=== PATIENT | female | born 1990 | race African-American/Black ===

== ENCOUNTER 2018-02-15 22:43 | Emergency (ER) | payer MEDICARE ==
[~2018-02-15] VITALS: Ht 162.6 cm; Wt 74.8 kg
--- OUTSIDE RECORDS SUMMARY | 2018-02-15 22:46 | XMS REPORT ---
Author Author Admin, [place] Organization [facility] Address Unknown Phone Unavailable Allergies, Adverse Reactions, Alerts Allergy Name Reaction Description Start Date Severity Status Provider No Known Allergies Socorro Das Conditions or Problems Problem Name Problem Code Onset Date Status Entry Date Provider Comment Standard Description Annotate Eye and vision exam, routine, normal findings V72.0 Active Mehdi Jn OD Examination of eyes and vision Medication List Medication Instructions Start Date Stop Date Generic Name NDC Status Provider Patient Instruction No Drug Therapy Prescribed - none known did ask Socorro Das Procedures Code Procedure Name Date Entry Date Standard Description [id number] New Patient Intermediate Opth - 31697 14:03:54 CDT
--- OUTSIDE RECORDS SUMMARY | 2018-02-15 22:46 | XMS REPORT | Clinical Summary ---
Author Author ANDRÉS [facility] Organization [facility] Address Unknown Phone Unavailable Care Team Providers Care Shirt Presser Name Role Phone Pcp, No PCP Unavailable Allergies Comments Active Allergy Reactions Severity Noted Date Sulfamethoxazole-Trimetho 02/01/2018 prim Lip swelling Ibuprofen 08/26/2017 Hives, sob Metronidazole 02/02/2018 Medications End Date Status Medication Sig Dispensed Refills Start Date Active methylPREDNISolone Take 4 mg by 0 (MEDROL) 4 MG tablet mouth 3 7 (three) times daily. Active levonorgestrel-ethinyl Take 1 tablet 0 estradiol (NORDETTE) by mouth 0.15-0.03 mg per tablet daily. Active cholecalciferol, vitamin Take 50,000 0 D3, 50,000 unit Tab Units by mouth once a week. Active albuterol HFA (VENTOLIN Inhale 1 puff 0 HFA) 90 mcg/actuation by mouth via inhaler inhaler every 6 (six) hours as needed for Wheezing. Active fluticasone (FLONASE) 50 1 spray by 0 mcg/actuation nasal spray Nasal route daily. Active benzonatate (TESSALON) Take 100 mg 0 100 MG capsule by mouth 3 (three) times daily as needed for Cough. Active B-complex with vitamin C Take 1 tablet 0 tablet by mouth daily. Active cetirizine (ZYRTEC) 10 MG Take 10 mg by 0 tablet mouth daily. Active inhalational spacing For use with 1 each 0 device (AEROCHAMBER) Spcr albuterol 7 inhaler. 08/16/2017 methylPREDNISolone follow 1 Package 0 (MEDROL DOSEPACK) 4 mg package 8 tablet directions. 09/03/2017 sulfamethoxazole-trimetho Take 1 tablet 14 tablet 0 prim (BACTRIM DS) 800-160 (160 mg of 8 mg per tablet trimethoprim total) by mouth 2 (two) times daily for 7 days smx-tmp DS (BACTRIM) 800-160 mg tabs (1tab q12 D10). 09/10/2017 chlorhexidine (HIBICLENS) Apply 120 mL 0 4 % external liquid topically 8 daily as needed for up to 14 days. 02/02/2018 Discontinued tinidazole (TINDAMAX) 500 Take 4 10 tablet 0 MG tablet tablets 8 (2,000 mg total) by mouth once for 1 dose. 02/12/2018 diphenhydrAMINE Take 1 20 capsule 0 (BENADRYL) 25 mg capsule capsule (25 8 mg total) by mouth every 6 (six) hours as needed for Itching for up to 10 days. 02/06/2018 predniSONE (DELTASONE) 20 Take 3 12 tablet 0 MG tablet tablets (60 8 mg total) by mouth daily for 4 days. 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 Encounters Care Team Description Date Type Specialty Jose De Jesus Wood MD Allergic reaction, initial encounter (Primary Dx); Trichomoniasis 02/01/2018 Emergency Emergency Medicine - 02/02/2018 02/01/2018 Orders Only General Internal Medicine Karmen Masters MD Folliculitis (Primary Dx) 08/28/2017 Emergency Emergency Medicine Brandon Eli MD Folliculitis (Primary Dx); Class 3 severe obesity due to excess calories without serious comorbidity with body mass index (BMI) of 45.0 to 49.9 in adult (HCC); Anxiety; Cellulitis of face 08/27/2017 Emergency Emergency Medicine Ryley Hilario DO Throat pain (Primary Dx); Headache syndrome; Visual disturbance 08/09/2017 Emergency Emergency Medicine Oral Mendoza MD Paresthesia (Primary Dx) 03/02/2017 Emergency Emergency Medicine - 03/03/2017 Gracie Bender MD Post-viral cough syndrome (Primary Dx) 02/21/2017 Emergency Emergency Medicine after 02/14/2017 Social History Date Tobacco Use Types Packs/Day Years Used Never Smoker Smokeless Tobacco: Never Used Alcohol Use Drinks/Week oz/Week Comments No rare Sex Assigned at Date Recorded Not on file Industry Job Start Date Occupation Not on file Not on file Not on file Travel End Travel History Travel Start No recent travel history available. Last Filed Vital Signs Time Taken Vital Sign Reading 02/02/2018 1:15 AM [facility] Blood Pressure 118/78 02/02/2018 1:15 AM [facility] Pulse 68 02/01/2018 10:34 PM [facility] [facility] Temperature 36.9 C (98.4 F) 02/02/2018 1:15 AM [facility] [facility] Respiratory Rate 18 02/02/2018 1:15 AM [facility] [facility] Oxygen Saturation 100% - Inhaled Oxygen - Concentration 02/01/2018 10:34 PM [facility] [facility] Weight 74.8 kg (165 lb) 02/01/2018 10:34 PM [facility] [facility] Height 157.5 cm (5' 2") 02/01/2018 10:34 PM [facility] [facility] Body Mass Index 30.18 Plan of Treatment Not on file Procedures Comments Procedure Name Priority Date/Time Associated Diagnosis SCREEN, URINE STAT 02/01/2018 11:29 PM [facility] ECG 12-LEAD Routine 02/01/2018 10:31 PM [facility] Procedure Note - Interface, External Ris In - 02/01/2018 10:33 PM [facility] Ventricula r Rate 67 BPM Atrial Rate 67 BPM P-R Interval 148 ms QRS Duration 72 ms Q-T Interval 362 ms QTC Calculatio n(Bazett) 382 ms P Monroe -2 degrees R Monroe 80 degrees T Monroe 31 degrees Normal sinus rhythm Normal ECG No previous ECGs available ECG 12-LEAD STAT 02/01/2018 10:31 PM [facility] CBC W/PLT COUNT & AUTO STAT 08/28/2017 DIFFERENTIAL 1:39 AM CDT CBC W/PLT COUNT & AUTO STAT 08/28/2017 DIFFERENTIAL 1:[address] BRAIN WITHOUT IV STAT 08/09/2017 CONTRAST 6:41 PM CDT MAGNESIUM STAT 03/02/2017 11:24 PM [facility] BASIC METABOLIC PANEL (7) STAT 03/02/2017 11:24 PM [facility] XR CHEST 2 VIEWS STAT 02/21/2017 1:07 AM [facility] after 02/14/2017 Results * screen, urine (02/01/2018 11:29 PM [facility]) Preg Test, Ur Negative [facility] Specimen Urine - Urine, Clean Catch Performing Organization Address [facility] Phone Number [facility] [id number] [place] [address] * ECG 12 lead (02/01/2018 10:31 PM [facility]) Narrative Performed At Ventricular Rate 67 BPM GE MUSE Atrial Rate 67 BPM P-R Interval 148 ms QRS Duration 72 ms Q-T Interval 362 ms QTC Calculation(Bazett) 382 ms P Monroe -2 degrees R Monroe 80 degrees T Monroe 31 degrees Normal sinus rhythm Normal ECG No previous ECGs available Procedure Note Interface, External Ris In - 02/03/2018 5:15 PM [facility] Ventricular Rate 67 BPM Atrial Rate 67 BPM P-R Interval 148 ms QRS Duration 72 ms Q-T Interval 362 ms QTC Calculation(Bazett) 382 ms P Monroe -2 degrees R Monroe 80 degrees T Monroe 31 degrees Normal sinus rhythm Normal ECG No previous ECGs available Performing Organization Address [facility] Phone Number [facility] * CBC with platelet count + automated diff (08/28/2017 1:39 AM CDT) WBC 9.1 4.0 - 10.0 K/L [facility] RBC 4.21 4.00 - 5.00 M/L [facility] Hemoglobin 12.1 12.0 - 15.0 GM/DL [facility] Hematocrit 35.8 (L) 36.0 - 45.0 % [facility] MCV 85.0 82.0 - 99.0 fL [facility] MCH 28.7 27.0 - 33.0 pg [facility] MCHC 33.8 32.0 - 36.0 GM/DL [facility] RDW 13.2 10.3 - 14.2 % [facility] Platelets 288 150 - 430 K/CU MM [facility] MPV 9.2 6.5 - 10.5 fL [facility] nRBC 0 0 - 0 /100 WBC [facility] % Neutros 57 % [facility] % Lymphs 37 % [facility] % Monos 5 % [facility] % Eos 1 % [facility] % Baso 0 % [facility] # Neutros 5.19 1.80 - 8.00 K/L [facility] # Lymphs 3.32 1.48 - 4.50 K/L [facility] # Monos 0.48 0.00 - 1.30 K/L [facility] # Eos 0.09 0.00 - 0.50 K/L [facility] # Baso 0.02 0.00 - 0.20 K/L [facility] Specimen Blood - Arm, Right Performing Organization Address City/State/Zipcode Phone Number [facility] [place], [place] [phone] [facility] [place] [address] * CT brain without IV contrast (08/09/2017 6:41 PM CDT) Narrative Performed At FINAL REPORT [facility] CT head without contrast 08/09/2017 6:47 PM CLINICAL HISTORY: Headache, acute, norm neuro exam headache, eye pain TECHNIQUE: Axial noncontrast CT images through the head were obtained. This examination was performed according to our departmental dose optimization program, which includes automated exposure control, adjustment of the mA and/or kV according to patient size, and/or use of iterated reconstruction technique. COMPARISON: None available FINDINGS: There is no hemorrhage, extra-axial collection, mass, hydrocephalus, or midline shift. There is no CT evidence for cerebral infarction. The visualized paranasal sinuses and mastoid air cells are well aerated. The skull is intact. IMPRESSION: No intracranial hemorrhage or mass effect. If concern for acute pathology persists, further evaluation with MRI is recommended. Signed: James Mir MD Report Verified Date/Time:08/09/2017 18:50:12 Reading Location: [facility] Radiology Reading Room Procedure Note Interface, External Ris In - 08/09/2017 6:52 PM CDT FINAL REPORT CT head without contrast 08/09/2017 6:47 PM CLINICAL HISTORY: Headache, acute, norm neuro exam headache, eye pain TECHNIQUE: Axial noncontrast CT images through the head were obtained. This examination was performed according to our departmental dose optimization program, which includes automated exposure control, adjustment of the mA and/or kV according to patient size, and/or use of iterated reconstruction technique. COMPARISON: None available FINDINGS: There is no hemorrhage, extra-axial collection, mass, hydrocephalus, or midline shift. There is no CT evidence for cerebral infarction. The visualized paranasal sinuses and mastoid air cells are well aerated. The skull is intact. IMPRESSION: No intracranial hemorrhage or mass effect. If concern for acute pathology persists, further evaluation with MRI is recommended. Signed: James Mir MD Report Verified Date/Time: 08/09/2017 18:50:12 Reading Location: [facility] Radiology Reading Room Performing Organization Address [facility]/[place] Phone Number GE RIS * Magnesium (03/02/2017 11:24 PM [facility]) Magnesium 2.1 1.5 - 3.0 mg/dL [facility] Specimen Blood Performing Organization Address [facility]/[place] Phone Number [facility] [place] [address] [facility] [address] * Basic metabolic panel (Na, K+, Cl, CO2, Glu, Ca, BUN, Cr) (03/02/2017 11:24 PM [facility]) Sodium 141 135 - 148 meq/L [facility] Potassium 3.9 3.6 - 5.5 meq/L [facility] Chloride 102 98 - 106 meq/L [facility] CO2 24 20 - 29 meq/L [facility] BUN 5 (L) 10 - 26 mg/dL [facility] Creatinine 0.87 0.50 - 1.20 mg/dL [facility] Glucose 83 70 - 110 mg/dL [facility] Calcium 10.0 8.5 - 10.5 mg/dL [facility] EGFR 95Comment: ESTIMATED GFR IS mL/min/1.73 sq m [facility] NOT ACCURATE CREATININE CLEARANCE IN PREDICTING GLOMERULAR FILTRATION RATE. ESTIMATED GFR IS NOT APPLICABLE FOR DIALYSIS PATIENTS. Specimen Blood Performing Organization Address [facility] Phone Number [facility] [place] [address] [facility] [address] * XR chest 2 views (02/21/2017 1:07 AM [facility]) Narrative Performed At FINAL REPORT [facility] EXAM: 2 VIEW CHEST INDICATION: SHORTNESS OF BREATH, COUGH IMPRESSION: Compared with May 03, 2015. The examination is limited by the large volume of superimposed adipose tissue. No definite evidence of a discrete pneumonia, pulmonary edema or pleural effusion. The heart is borderline enlarged but stable. Mediastinal contours are unchanged. No evidence of an acute osseous abnormality or pneumothorax. Chest CT could be performed for further evaluation if an occult process is suspected. Signed: Su Norwood MD Report Verified Date/Time:02/21/2017 01:23:55 Reading Location: [address] Reading Room Procedure Note Interface, External Ris In - 02/21/2017 1:26 AM [facility] FINAL REPORT EXAM: 2 VIEW CHEST INDICATION: SHORTNESS OF BREATH, COUGH IMPRESSION: Compared with May 03, 2015. The examination is limited by the large volume of superimposed adipose tissue. No definite evidence of a discrete pneumonia, pulmonary edema or pleural effusion. The heart is borderline enlarged but stable. Mediastinal contours are unchanged. No evidence of an acute osseous abnormality or pneumothorax. Chest CT could be performed for further evaluation if an occult process is suspected. Signed: Su Norwood MD Report Verified Date/Time: 02/21/2017 01:23:55 Reading Location: [address] Reading Room Performing Organization Address City/State/Zipcode Phone Number [facility] after 02/14/2017 Insurance Payer Benefit Subscriber ID Type Phone Address Plan / Group MEDICAID - MEDICAID MGD MEDICAID xxxxxxxxx Medicaid [facility] Contracted Advance Directives For more information, please contact: [address] [address] Date Inactivated Comments Code Status Date Activated 04/29/2016 8:03 PM Full Code 04/29/2016 9:32 AM This code status was determined by: Patient
--- OUTSIDE RECORDS SUMMARY | 2018-02-15 22:46 | XMS REPORT | Clinical Summary ---
Author Author [facility] [facility] Organization [place] [facility] Address Unknown Phone Unavailable Care Team Providers Care [employer] Stock[employer] Supervisor Name Role Phone AkosuaMarkbuffyyuri PCP Allergies Comments Active Allergy Reactions Severity Noted Date Sulfamethoxazole-Trimetho Swelling 09/13/2017 prim Egg 10/31/2017 Lip swelling Ibuprofen 08/26/2017 Medications End Date Status Medication Sig Dispensed Refills Start Date 03/17/2017 butalbital-acetaminophen- Take 2 12 tablet 0 caff (ESGIC) 50-325-40 mg tablets by 7 per tablet mouth every 8 (eight) hours as needed for headaches for up to 30 days. 12/09/2017 Discontinued sulfamethoxazole-trimetho Take 1 tablet 0 prim (BACTRIM DS) 800-160 by mouth 2 mg per tablet (two) times a day. 09/02/2017 predniSONE (DELTASONE) 20 Take 3 12 tablet 0 mg tablet tablets (60 8 mg total) by mouth daily for 4 days. 09/05/2017 famotidine (PEPCID) 20 MG Take 1 tablet 14 tablet 0 tablet (20 mg total) 8 by mouth 2 (two) times a day for 7 days. 12/16/2017 magnesium hydroxide Take 60 mL by 354 mL 0 (magnesium hydroxide) 400 mouth nightly 8 mg/5 mL suspension as needed (constipation ) for up to 7 days. Active Problems Not on file Encounters Care Team Description Date Type Specialty Ahmet Granados MD Palpitations (Primary Dx) 01/26/2018 Emergency Emergency Medicine Alexey Spain MD Allergic reaction, initial encounter (Primary Dx) 12/17/2017 Emergency Emergency Medicine Hina Alexander DO 12/09/2017 Hospital Radiology Encounter Hina Alexander, Generalized abdominal pain (Primary Dx) 12/09/2017 Emergency Emergency Medicine - 12/10/2017 Nicolette Khan MD Chest pain, unspecified type (Primary Dx); Headache, unspecified headache type 12/02/2017 Emergency Emergency Medicine - 12/03/2017 Kamar Roy, Allergic reaction, initial encounter (Primary Dx) 10/31/2017 Emergency Emergency Medicine Chest pain, unspecified type (Primary Dx); Palpitations 09/13/2017 Emergency Emergency Medicine Ene Patterson, Allergic reaction, initial encounter (Primary Dx) 08/29/2017 Emergency Emergency Medicine Hina Alexander, Nonintractable headache, unspecified chronicity pattern, unspecified headache type (Primary Dx) 02/15/2017 Emergency Emergency Medicine after 02/14/2017 Social History Date Tobacco Use Types Packs/Day Years Used Never Smoker Smokeless Tobacco: Never Used Alcohol Use Drinks/Week oz/Week Comments No Sex Assigned at Date Recorded Not on file Industry Job Start Date Occupation Not on file Not on file Not on file Travel End Travel History Travel Start No recent travel history available. Last Filed Vital Signs Time Taken Vital Sign Reading 01/26/2018 10:16 PM SOFTWARE DESIGNER Blood Pressure 127/79 01/26/2018 10:16 PM SOFTWARE DESIGNER Pulse 65 01/26/2018 10:16 PM SOFTWARE DESIGNER Temperature 36.2 C (97.2 F) 01/26/2018 10:16 PM SOFTWARE DESIGNER Respiratory Rate 17 01/26/2018 10:16 PM SOFTWARE DESIGNER Oxygen Saturation 100% - Inhaled Oxygen - Concentration 09/13/2017 10:34 PM CDT Weight 86.6 kg (191 lb) 01/26/2018 10:11 PM SOFTWARE DESIGNER Height 160 cm (5' 3") 09/13/2017 10:34 PM CDT Body Mass Index 34.93 Plan of Treatment Health Maintenance Due Date Last Done Comments MMR VACCINES (1 of - 1991 Standard series) VARICELLA VACCINES (1 of 2003 2 - 2-dose adolescent series) CERVICAL CANCER SCREENING 2011 INFLUENZA VACCINE 10/18/2017 HEPATITIS B VACCINES Aged Out No longer eligible based on patient's age to complete this topic IPV VACCINES Aged Out No longer eligible based on patient's age to complete this topic MENINGOCOCCAL VACCINE Aged Out No longer eligible based on patient's age to complete this topic Procedures Comments Procedure Name Priority Date/Time Associated Diagnosis ECG 12-LEAD Routine 01/26/2018 10:22 PM SOFTWARE DESIGNER XR ABDOMEN ACUTE INC STAT 12/09/2017 CHEST 11:25 PM CDT ESTIMATED GFR STAT 12/09/2017 11:10 PM CDT COMPREHENSIVE METABOLIC STAT 12/09/2017 PANEL 11:10 PM CDT HC COMPLETE BLD COUNT STAT 12/09/2017 W/AUTO DIFF 11:10 PM CDT HCG QUALITATIVE, URINE STAT 12/09/2017 SCREEN 11:00 PM CDT URINALYSIS STAT 12/09/2017 11:00 PM CDT URINALYSIS SCREEN AND Routine 12/02/2017 MICROSCOPY, WITH REFLEX 11:40 PM CDT TO CULTURE URINE CULTURE Routine 12/02/2017 11:40 PM CDT XR CHEST 2 VW STAT 12/02/2017 11:05 PM CDT ECG ED PRELIMINARY Routine 12/02/2017 INTERPRETATION 10:53 PM CDT ESTIMATED GFR STAT 12/02/2017 10:30 PM CDT B NATRIURETIC PEPTIDE STAT 12/02/2017 10:30 PM CDT TROPONIN STAT 12/02/2017 10:30 PM CDT COMPREHENSIVE METABOLIC STAT 12/02/2017 PANEL 10:30 PM CDT HC COMPLETE BLD COUNT STAT 12/02/2017 W/AUTO DIFF 10:30 PM CDT ECG 12-LEAD STAT 12/02/2017 10:19 PM CDT ECG 12-LEAD STAT 09/13/2017 10:53 PM CDT ZZESTIMATED GFR STAT 09/13/2017 10:50 PM CDT TROPONIN, I-STAT STAT 09/13/2017 10:50 PM CDT BASIC METABOLIC PANEL STAT 09/13/2017 10:50 PM CDT HC COMPLETE BLD COUNT STAT 09/13/2017 W/AUTO DIFF 10:50 PM CDT ECG ED PRELIMINARY Routine 09/13/2017 INTERPRETATION 10:48 PM CDT HCG QUALITATIVE, URINE STAT 08/29/2017 SCREEN 8:40 PM CDT URINALYSIS SCREEN AND STAT 08/29/2017 MICROSCOPY, WITH REFLEX 8:40 PM CDT TO CULTURE URINE CULTURE STAT 08/29/2017 8:40 PM CDT ECG 12-LEAD STAT 08/29/2017 8:33 PM CDT INFLUENZA ANTIGEN Routine 02/15/2017 12:52 AM SOFTWARE DESIGNER after 02/14/2017 Results * ECG 12 lead (01/26/2018 10:22 PM SOFTWARE DESIGNER) Only the most recent of 4 results within the time period is included. Ventricular rate 66 [facility] Atrial rate 66 [facility] AZ interval 152 [facility] QRSD interval 76 [facility] QT interval 370 [facility] QTC interval 387 [facility] P axis 1 -4 [facility] QRS axis 1 28 [facility] T wave axis 26 [facility] EKG impression Normal sinus rhythm-Normal [facility] MUSE ECG-In automated comparison with ECG of 02-DEC-2017 22:19,-No significant change was found- Narrative Performed At Performing Organization Address City/State/Zipcode Phone Number [facility] MUSE [address] [place] [address] * XR Abdomen Acute Inc Chest (12/09/2017 11:25 PM CDT) Narrative Performed At Examination:XR ABDOMEN ACUTE INC CHEST [facility] Clinical History: generalized abd pain without other sx Comparison: None. Technique: Single frontal view of the chest and 2 views of the abdomen are obtained. Findings: On the chest film, the lungs are free of infiltrate. The heart size normal. No pleural effusion is seen. On the abdominal films, the bowel gas pattern is nonspecific with moderate fecal material throughout the colon. No free air is seen. No bowel dilatation is seen. Impression: Nonspecific but nonobstructive bowel gas pattern with moderate fecal material throughout the colon. [facility]-[id number] Procedure Note Hm Interface, Radiology Results Incoming - 12/09/2017 11:48 PM CDT Examination: XR ABDOMEN ACUTE INC CHEST Clinical History: generalized abd pain without other sx Comparison: None. Technique: Single frontal view of the chest and 2 views of the abdomen are obtained. Findings: On the chest film, the lungs are free of infiltrate. The heart size normal. No pleural effusion is seen. On the abdominal films, the bowel gas pattern is nonspecific with moderate fecal material throughout the colon. No free air is seen. No bowel dilatation is seen. Impression: Nonspecific but nonobstructive bowel gas pattern with moderate fecal material throughout the colon. [facility]-[id number] Performing Organization Address City/[facility]/Zipcode Phone Number [facility] [address] [place] [address] * Estimated GFR (12/09/2017 11:10 PM CDT) Only the most recent of 2 results within the time period is included. Estimated GFR 89 mL/min/1.73 m2 [facility] DEPARTMENT OF Comment: PATHOLOGY AND CatergoryUnitsInte GENOMIC MEDICINE rpretation G1 >=90 Normal or high G2 60-89Mildly decreased [id number] Mildly to moderately decreased [id number] Moderately to severely decreased G4 15-29Severely decreased G5 <15Kidney failure The eGFR was calculated using the Chronic Kidney Disease Epidemiology Collaboration (CKD-EPI) equation. Interpretation is based on recommendations of the National Kidney Foundation-Kidney Disease Outcomes Quality Initiative (NKF-KDOQI) published in 2014. Specimen Plasma specimen Performing Organization Address City/State/Zipcode Phone Number [facility] [address] [facility]. [address] [place] [address] PATHOLOGY AND GENOMIC MEDICINE * CBC with platelet and differential (12/09/2017 11:10 PM CDT) Only the most recent of 3 results within the time period is included. WBC 8.7 4.5 - 11.0 k/uL [facility] RBC 4.30 4.20 - 5.50 M/uL [facility] HGB 12.1 12.0 - 16.0 g/dL [facility] HCT 36.7 (L) 37.0 - 47.0 % [facility] MCV 85.3 82.0 - 100.0 fL [facility] MCH 28.1 27.0 - 34.0 pg [facility] MCHC 33.0 31.0 - 37.0 g/dL [facility] RDW - SD 40.6 37.0 - 55.0 fL [facility] MPV 9.8 8.8 - 13.2 fL [facility] Platelet count 269 150 - 400 K/uL [facility] Neutrophils 58.6 39.0 - 69.0 % [facility] Lymphocytes 31.5 25.0 - 45.0 % [facility] Monocytes 8.5 0.0 - 10.0 % [facility] Eosinophils 1.3 0.0 - 5.0 % [facility] Basophils 0.1 0.0 - 1.0 % [facility] Specimen Blood Performing Organization Address City/State/Zipcode Phone Number [address] [place] [address] [facility] * Comprehensive metabolic panel (12/09/2017 11:10 PM CDT) Only the most recent of 2 results within the time period is included. Sodium 141 128 - 145 mEq/L [facility] Potassium 3.7 3.6 - 5.1 mEq/L [facility] CO2 29 18 - 33 mEq/L [facility] Chloride 104 98 - 108 mEq/L [facility] Glucose 98 73 - 118 mg/dL [facility] Calcium 8.8 8.0 - 10.3 mg/dL [facility] BUN 11 7 - 22 mg/dL [facility] Creatinine 1.0 (H) 0.5 - 0.9 mg/dL [facility] Alkaline phosphatase 66 42 - 141 U/L [facility] ALT 15 10 - 47 U/L [facility] AST 20 11 - 38 U/L [facility] Total bilirubin 0.5 0.2 - 1.6 mg/dL [facility] Albumin 3.5 3.3 - 5.5 g/dL [facility] Protein 7.0 6.4 - 8.1 g/dL [facility] Anion gap 8@ANIO 7 - 15 mEq/L [facility] A/G ratio 1.00 0.70 - 3.80 [facility] Specimen Plasma specimen Performing Organization Address City/State/[facility] Phone Number [address] [place] [address] [facility] * Urinalysis (12/09/2017 11:00 PM CDT) Glucose, UA Negative Negative [facility] Bilirubin, UA Negative Negative [facility] Ketones, UA Negative Negative [facility] Specific gravity, UA 1.015 1.005 - 1.030 [facility] Blood, UA Negative Negative [facility] pH, UA 8.0 5.0 - 8.0 [facility] Protein, UA Trace (A) Negative [facility] Urobilinogen, UA 4.0 <2.0 E.U./dL [facility] Nitrite, UA Negative NEGATIVE [facility] Leukocyte esterase, UA Negative Negative [facility] Color, UA Yellow YELLOW [facility] Appearance, UA Cloudy (A) Clear [facility] Specimen Urine Performing Organization Address City/State/[place] [address] [facility] * hCG qualitative, urine screen (12/09/2017 11:00 PM CDT) Only the most recent of 2 results within the time period is included. [facility] qualitative, urine NegativeComment: Sensitivity Negative DEPARTMENT [facility] HCG test: 25 mIU/ml [facility] Specimen Urine Performing Organization Address City/State/[place] [address] [facility] * Urinalysis screen and microscopy, with reflex to culture (12/02/2017 11:40 PM CDT) Only the most recent of 2 results within the time period is included. Specimen site Clean catch [facility] DEPARTMENT OF PATHOLOGY AND GENOMIC MEDICINE Color, UA Straw [facility] DEPARTMENT OF PATHOLOGY AND GENOMIC MEDICINE Appearance, UA Clear [facility] DEPARTMENT OF PATHOLOGY AND GENOMIC MEDICINE Specific gravity, UA 1.005 1.001 - 1.035 [facility] DEPARTMENT OF PATHOLOGY AND GENOMIC MEDICINE pH, UA 6.0 5.0 - 8.5 [facility] DEPARTMENT OF PATHOLOGY AND GENOMIC MEDICINE Protein, UA Negative Negative [facility] DEPARTMENT OF PATHOLOGY AND GENOMIC MEDICINE Glucose, UA Negative Negative [facility] DEPARTMENT OF PATHOLOGY AND GENOMIC MEDICINE Ketones, UA Negative Negative [facility] DEPARTMENT OF PATHOLOGY AND GENOMIC MEDICINE Bilirubin, UA Negative Negative [facility] DEPARTMENT OF PATHOLOGY AND GENOMIC MEDICINE Blood, UA Negative Negative [facility] DEPARTMENT OF PATHOLOGY AND GENOMIC MEDICINE Nitrite, UA Negative Negative [facility] DEPARTMENT OF PATHOLOGY AND GENOMIC MEDICINE Urobilinogen, UA <2.0 <2.0 [facility] DEPARTMENT OF PATHOLOGY AND GENOMIC MEDICINE Leukocyte esterase, UA Negative Negative [facility] DEPARTMENT OF PATHOLOGY AND GENOMIC MEDICINE Epithelial cells, UA 1 /HPF [facility] DEPARTMENT OF PATHOLOGY AND GENOMIC MEDICINE WBC, UA <1 0 - 4 /HPF [facility] DEPARTMENT OF PATHOLOGY AND GENOMIC MEDICINE RBC, UA None seen 0 - 5 /HPF [facility] DEPARTMENT OF PATHOLOGY AND GENOMIC MEDICINE Bacteria, UA None seen None seen [facility] DEPARTMENT OF PATHOLOGY AND GENOMIC MEDICINE Yeast, UA None seen [facility] DEPARTMENT OF PATHOLOGY AND GENOMIC MEDICINE Yeast with pseudohyphae, None seen [facility] DEPARTMENT OF UA PATHOLOGY AND GENOMIC MEDICINE Specimen Urine Performing Organization Address City/[facility] Phone Number [facility] [place] [address] [address] [place] [address] PATHOLOGY AND GENOMIC MEDICINE * Urine culture (12/02/2017 11:40 PM CDT) Only the most recent of 2 results within the time period is included. Urine culture SEE COMMENTComment: [facility] DEPARTMENT OF Bacteriuria screen negative. PATHOLOGY AND GENOMIC MEDICINE Performing Organization Address [facility] Phone Number [facility] [place] [address] [address] [place] [id number] PATHOLOGY AND GENOMIC MEDICINE * XR Chest 2 Vw (12/02/2017 11:05 PM CDT) Narrative Performed At EXAMINATION:XR CHEST 2 VW [facility] CLINICAL HISTORY:Chest painacutenonspecificlow prob CAD COMPARISON:Chest x-ray from February 02, 2017 FINDINGS: Lines: None Lungs and pleura: No consolidations. No pleural effusion or pneumothorax. Heart and mediastinum: Stable appearance of cardiomediastinal silhouette. Bones: No suspicious osseous lesions. IMPRESSION: No acute abnormalities. [facility]-[id number] Procedure Note Hm Interface, Radiology Results Incoming - 12/02/2017 11:20 PM CDT EXAMINATION: XR CHEST 2 VW CLINICAL HISTORY: Chest pain acute nonspecific low prob CAD COMPARISON: Chest x-ray from February 02, 2017 FINDINGS: Lines: None Lungs and pleura: No consolidations. No pleural effusion or pneumothorax. Heart and mediastinum: Stable appearance of cardiomediastinal silhouette. Bones: No suspicious osseous lesions. IMPRESSION: No acute abnormalities. [facility]-[id number] Performing Organization Address City/[facility]/Zipcode Phone Number [facility] [address] [place] [address] * ECG ED Preliminary Interpretation - NOT AN ORDER (12/02/2017 10:53 PM CDT) Only the most recent of 2 results within the time period is included. Narrative Performed At Nicolette Khan MD 12/05/2017 12:32 PM ECG ED Preliminary Interpretation - Not an Order Performed by: DALIA RAMSEY Authorized by: NICOLETTE KHAN ECG reviewed by ED Physician in the absence of a alcoholic counselor: yes Previous ECG: Previous ECG:Unavailable Interpretation: Interpretation: normal Rate: ECG rate:87 ECG rate assessment: normal Rhythm: Rhythm: sinus rhythm Ectopy: Ectopy: none QRS: QRS axis:Normal QRS intervals:Normal Conduction: Conduction: normal ST segments: ST segments:Normal T waves: T waves: normal * Troponin (12/02/2017 10:30 PM CDT) Troponin <0.10 0.00 - 0.10 ng/mL [facility] DEPARTMENT OF Comment: PATHOLOGY AND 0.11 - 1.49 GENOMIC MEDICINE ng/mlMay indicate increased risk of acute coronary syndrome. >=1.5 ng/ml Consistent with acute myocardial infarction. The diagnostic value of a single normal or non-diagnostic result is questionable.Serial samples at 2-6 hour intervals are required to rule out acute myocardial injury. Specimen Plasma specimen Performing Organization Address [facility] Phone Number [facility] [place] OF [id number] [place] [address]. [place] [address] PATHOLOGY AND [facility] MEDICINE * B natriuretic peptide (12/02/2017 10:30 PM CDT) BNP 6 0 - 100 pg/mL [facility] DEPARTMENT OF PATHOLOGY AND GENOMIC MEDICINE Specimen Blood Performing Organization Address [facility] Phone Number [facility] [place] [id number] [place] [address]. [place] [address] PATHOLOGY AND [facility] MEDICINE * Estimated GFR (09/13/2017 10:50 PM CDT) GFR Non Af Amer 54 (A) mL/min/1.73 m2 DEPARTMENT OF PATHOLOGY AND GENOMIC MEDICINE,[facility] GFR Af Amer 65 mL/min/1.73 m2 DEPARTMENT OF Comment: PATHOLOGY AND Chronic kidney disease: <60 GENOMIC mL/min/1.73m2 [facility] Kidney failure: <15 EMERGENCY CARE mL/min/1.73m2 CENTER The estimated GFR is calculated from the IDMS-traceable Modification of Diet in Renal Disease Equation. The accuracy of the calculation is poor when the creatinine is normal. Calculated values >90 mL/min/1.73m2 are not reported. This equation has not been validated in children (<18 years), women, the elderly (>70 years), or ethnic groups other than Caucasians and Americans. Specimen Plasma specimen Performing Organization Address City/[facility] Phone Number [address] [address] [facility] * Troponin, I-Stat (09/13/2017 10:50 PM CDT) Troponin, I-Stat 0.00 0.00 - 0.08 ng/mL DEPARTMENT OF Comment: PATHOLOGY AND 0.09 - 1.49 [facility] indicate increased risk of EMERGENCY CARE acute CENTER coronary syndrome. >=1.5 ng/ml Consistent with acute myocardial infarction. The diagnostic value of a single normal or non-diagnostic result is questionable.Serial samples at 2-6 hour intervals are required to rule out acute myocardial injury. Specimen Plasma specimen Performing Organization Address [facility] Phone Number [address] [address] [facility] * Basic metabolic panel (09/13/2017 10:50 PM CDT) Glucose 100 73 - 118 mg/dL [facility] BUN 12 7 - 22 mg/dL [facility] Calcium 9.1 8.0 - 10.3 mg/dL [facility] Creatinine 1.2 0.6 - 1.2 mg/dL [facility] Sodium 139 128 - 145 mEq/L [facility] Potassium 3.7 3.6 - 5.1 mEq/L [facility] Chloride 103 98 - 108 mEq/L [facility] CO2 27 18 - 33 mEq/L [facility] Anion gap 9@ANIO 7 - 15 mEq/L [facility] Specimen Plasma specimen Performing Organization Address City/[facility] Phone Number [address] [address] PATHOLOGY AND GENOMIC MEDICINE,[facility] * Influenza antigen (02/15/2017 12:52 AM SOFTWARE DESIGNER) Influenza antigen Negative for Influenza A/B [facility] DEPARTMENT OF antigen. PATHOLOGY AND Comment: GENOMIC MEDICINE Specimen Information Specimen Source: Nares Specimen Site: Right Specimen Nares - Right Performing Organization Address City/State/Zipcode Phone Number [facility] [address] [facility] [address] [place] [address] PATHOLOGY AND GENOMIC MEDICINE after 02/14/2017 Insurance Payer Benefit Subscriber ID Type Phone Address Plan / Group [facility] xxxxxxxxx HMO PLAN [facility] KIDS Advance Directives Patient has advance care planning documents on file. For more information, tanmay elliott contact: Onel Macias [address] [place] [address]
--- OUTSIDE RECORDS SUMMARY | 2018-02-15 22:46 | XMS REPORT | Continuity of Care Document ---
Author Author [facility] Interface Address Unknown Phone Unavailable Problems Problem Status Onset Date Classification Date Reported Comments Source SOB Active 02/02/2018 [facility] [place] Eye and vision exam, routine, normal findings Active 10/13/2017 Diagnosis 10/18/2017 [facility] Migraine Active 09/25/2017 Problem 02/03/2018 [facility] SOAR THROATH Active 03/17/2015 [facility] Discharge Diagnosis: Acute URI 03/05/2015 03/08/2015 [facility] FLU LIKE Active 03/04/2015 [facility] Medications Medication Details Route Status Patient Instructions Ordering Provider Order Date Source Metoclopramide 10 Mg Tablet Reglan 10 Mg Tablet Take 1 tablet by mouth 3 times daily as needed for Other (headache). Oral Active 09/25/2017 [facility] Prednisone 20 Mg Tablet Take 1 tablet by mouth daily for 5 days. Oral No Longer Active 09/17/2017 [facility] Diphenhydramine 25 Mg Capsule Benadryl 25 Mg Capsule Take 1 capsule by mouth every 6 hours as needed for up to 10 days for Itching. Oral No Longer Active 09/17/2017 [facility] Cetirizine 10 Mg Tablet Zyrtec 10 Mg Tablet Take 1 tablet by mouth daily. Oral Active 09/17/2017 [facility] Codeine Phosphate 2 MG/ML / Guaifenesin 20 MG/ML Oral Solution [Cheratussin] 5 ml, PO, Q4H, PRN for cough, X 14 day, # 420 mL, 0 Refill(s) Active 03/05/2015 [facility] Ibuprofen 800 mg, Route: PO, Drug form: SUSP, ONCE, Dosing Weight 90.909, kg, Priority: STAT, Start date: 03/04/15 20:11:00, Stop date: 03/04/15 20:11:00 Inactive 03/05/2015 [facility] Tylenol with Codeine 120 mg-12 mg/5 mL oral liquid 15 mL, Route: PO, Dosing Weight 90.909, kg, ONCE, Start date: 03/04/15 20:10:00, Stop date: 03/04/15 20:10:00 Inactive 03/05/2015 [facility] Benadryl 25 mg, Route: PO, Drug form: LIQ, ONCE, Dosing Weight 90.909, kg, Priority: STAT, Start date: 03/04/15 20:10:00, Stop date: 03/04/15 20:10:00 Inactive 03/05/2015 [facility] No Drug Therapy Prescribed - none known did ask Active [facility] Allergies, Adverse Reactions, Alerts Substance Category Reaction Severity Reaction type Status Date Reported Comments Source Idx-Wiihmyhzuklzu-Foco-Buffers Propensity to adverse reactions to drug Active 09/17/2017 [facility] Sulfamethoxazole-Trimethoprim Propensity to adverse reactions to drug Active 09/17/2017 [facility] Ibuprofen Propensity to adverse reactions to drug Active 09/17/2017 [facility] Immunizations Immunization Date Given Site Status Last Updated Comments Source Results Order Name Results Value Reference Range Date Interpretation Comments Source GLUCOSE POC Glucose POC 81 mg/dL 74 - 106 09/26/2017 [facility] 12 LEAD EKG 12 LEAD EKG FOR [facility] Test Date:2017-09-25 Pat Name: WEI TRINIDAD Department: : Gender: FTechnician: [id number] :1990 Requested By: Order Number:Brittani MD: Mike Levin Measurements IntervalsAxis Rate: 80 P:75 VA: 141QRS:50 QRSD: 68 T:47 QT: 344 QTc:397 Interpretive Statements SINUS RHYTHM POSSIBLE LEFT ATRIAL ENLARGEMENT [-0.1mV P WAVE IN V1/V2] Electronically Signed On 09-25-17 17:33:01 CDT by Mike Levin 09/25/2017 [facility] RAPID Grp A Strep Scr Negative (03/04/15 8:25 PM) Negative 03/05/2015 [facility] URINE AND STOOL UA Bacteria Few /HPF None Seen /HPF 03/05/2015 [facility] URINE AND STOOL UA WBC 0-2 /HPF None Seen /HPF 03/05/2015 [facility] URINE AND STOOL UA Sq Epi Occasional /LPF Few /LPF 03/05/2015 [facility] URINE AND STOOL UA RBC 0-2 /HPF 0 - 2 03/05/2015 [facility] URINE AND STOOL UA Blood Negative (03/04/15 8:25 PM) Negative 03/05/2015 [facility] URINE AND STOOL UA Urobilinogen 0.2 EU/dL 0.1 - 1.0 03/05/2015 [facility] URINE AND STOOL UA Ketones Negative mg/dL Negative mg/dL 03/05/2015 [facility] URINE AND STOOL UA Bili Negative *NA* (03/04/15 8:25 PM) Negative 03/05/2015 [facility] URINE AND STOOL UA Glucose Negative mg/dL Negative mg/dL 03/05/2015 [facility] URINE AND STOOL UA Protein Negative mg/dL Negative mg/dL 03/05/2015 [facility] URINE AND STOOL UA Nitrite Negative (03/04/15 8:25 PM) Negative 03/05/2015 [facility] URINE AND STOOL UA Leuk Est Negative (03/04/15 8:25 PM) Negative 03/05/2015 [facility] URINE AND STOOL UA pH 7.5 5.0 - 8.0 03/05/2015 [facility] URINE AND STOOL UA Spec Grav 1.020 <=1.030 03/05/2015 [facility] URINE AND STOOL UA Turbidity Clear (03/04/15 8:25 PM) Clear 03/05/2015 [facility] URINE AND STOOL UA Color Yellow *NA* (03/04/15 8:25 PM) Yellow 03/05/2015 [facility] URINE CHEM U Preg Negative (03/04/15 8:25 PM) Negative 03/05/2015 [facility] VIRAL - SEROLOGY Influ A Negative (03/04/15 8:25 PM) Negative 03/05/2015 [facility] VIRAL - SEROLOGY Influ B Negative (03/04/15 8:25 PM) Negative 03/05/2015 [facility] Chest 1view DX Chest 1view DX Name: WEI TRINIDAD : 1990 Ordering Physician: Saundra Landeros Chest 1view : Mar 04, 2015 08:55:00 PM. CLINICAL INDICATION: Cough and fever Comparison Examination: None. FINDINGS: Single view of the chest is submitted for interpretation. The lungs are clear and there are no effusions. There is no visible pneumothorax. Cardiomediastinal contours are stable. Bony structures are unremarkable. IMPRESSION: 1. No radiographic evidence of acute cardiopulmonary process. SL: 24 03/04/2015 - - Read by: Tung Sutherland MD Dictated Date/time: 03/04/15 21:06 Electronically Signed by: Tung Sutherland MD 03/04/15 21:09 FINAL REPORT [facility] Vital Signs Vital Sign Value Date Comments Source Systolic (mm Hg) 118 09/26/2017 [facility] Diastolic (mm Hg) 79 09/26/2017 [facility] Heart Rate 90 09/26/2017 [facility] Temperature Oral (F) 36.67 Nilam 09/26/2017 [facility] Respitory Rate 18 09/26/2017 [facility] Weight 83.553 09/25/2017 [facility] Respitory Rate 17 03/05/2015 [facility] Heart Rate 88 03/05/2015 [facility] Systolic (mm Hg) 109 03/05/2015 [facility] Diastolic (mm Hg) 80 03/05/2015 [facility] Respitory Rate 18 03/05/2015 [facility] Heart Rate 90 03/05/2015 [facility] Systolic (mm Hg) 110 03/05/2015 [facility] Diastolic (mm Hg) 73 03/05/2015 [facility] BMI Calculated 36.66 03/05/2015 [facility] Weight 90.909 03/05/2015 [facility] Temperature Oral (F) 97.8 F 03/05/2015 [facility] Height 157.48 cm 03/05/2015 [facility] Heart Rate 89 03/05/2015 [facility] Respitory Rate 15 03/05/2015 [facility] Systolic (mm Hg) 106 03/05/2015 [facility] Diastolic (mm Hg) 76 03/05/2015 [facility] Encounters Location Location Details Encounter Type Encounter Number Reason For Visit Attending Provider ADM Date DC Date Status Source [facility] [id number] Jamel Aleman 03/05/2015 03/05/2015 [facility] [id number] Edmond Mariano 03/18/2015 03/18/2015 [facility] [id number] 09/17/2017 [facility] ([id number]) [facility] [id number] Allergic reaction, initial encounter Teresa Bullard MD 09/17/2017 09/17/2017 [facility] ([id number]) [facility] Emergency [id number] Migraine without status migrainosus, not intractable, unspecified migraine type Benjamin Levin MD 09/26/2017 09/26/2017 [facility] Procedures Procedure Code Date Perfomer Comments Source New Patient Intermediate Opt - [id number] 10/13/2017 [facility] GLUCOSE POC 87058 09/26/2017 [facility] 12 LEAD EKG 05273 09/25/2017 [facility] GLUCOSE POC 66121 09/25/2017 [facility]
--- OUTSIDE RECORDS SUMMARY | 2018-02-15 22:46 | XMS REPORT | Summary of Care ---
Author Author [facility] Organization [facility] Address Unknown Phone Unavailable Encounter HQ Bayleentr_heladio([place]IL[place]) [id number] Date(s): 03/17/15 - 03/17/15 [facility] [address] [place] [address]- Discharge Disposition: NT Attending Physician: Edmond Mariano MD Vital Signs No data available for this section Problem List No data available for this section Allergies, Adverse Reactions, Alerts Substance Reaction Severity Status NKDA Active Medications No data available for this section Results No data available for this section Immunizations No data available for this section Procedures No data available for this section Social History Social History Type Response Smoking Status Never smoker; Type: Cigarettes; Exposure to Tobacco Smoke None; Cigarette Smoking Last 365 Days No; Reg Smoking Cessation Counseling No Assessment and Plan No data available for this section
--- OUTSIDE RECORDS SUMMARY | 2018-02-15 22:46 | XMS REPORT | Clinical Summary ---
Author Author [facility] Organization [facility] Address Unknown Phone Unavailable Care Team Providers Care Linux Admin Engineer Name Role Phone PCP Unavailable Allergies Active Allergy Reactions Severity Noted Date Comments Uel-Kbeergazylrdf-Ukkp-Bu 09/17/2017 [facility]fers Sulfamethoxazole-Trimetho 09/17/2017 [facility] Ibuprofen 09/17/2017 Current Medications Prescription Sig. Disp. Refills Start End Date Status Date cetirizine (ZYRTEC) 10 mg Take 1 tablet by mouth 30 tablet 0 09/18/19 Active tabletIndications: daily. 18 Allergic reaction, initial encounter metoclopramide (REGLAN) Take 1 tablet by mouth 3 15 tablet 0 09/26/19 Active 10 mg tabletIndications: times daily as needed for 18 Migraine without status Other (headache). migrainosus, not intractable, unspecified migraine type predniSONE (DELTASONE) 20 Take 1 tablet by mouth 5 tablet 0 09/18/19 09/23/19 mg tabletIndications: daily for 5 days. 18 18 Allergic reaction, initial encounter diphenhydrAMINE Take 1 capsule by mouth 30 capsule 0 09/18/19 09/28/19 (BENADRYL) 25 mg every 6 hours as needed 18 18 capsuleIndications: for up to 10 days for Allergic reaction, Itching. initial encounter Active Problems Problem Noted Date Migraine 09/25/2017 Encounters Date Type Specialty Care Team Description 09/25/2017 [facility] Benjamin Levin MD Migraine without status migrainosus, not intractable, unspecified migraine type (Primary Dx) 09/17/2017 [facility] Emergency [facility] Teresa Bullard MD Allergic reaction, initial encounter (Primary Dx) 09/17/2017 Pharmacy Visit after 02/14/2017 Social History Tobacco Use Types Packs/Day Years Used Date Never Assessed Sex Assigned at Date Recorded Not on file Last Filed Vital Signs Vital Sign Reading Time Taken Blood Pressure 118/79 09/25/2017 10:20 PM CDT Pulse 90 09/25/2017 10:20 PM CDT Temperature 36.7 C (98 F) 09/25/2017 10:20 PM CDT Respiratory Rate 18 09/25/2017 10:20 PM CDT Oxygen Saturation 99% 09/25/2017 10:20 PM CDT Inhaled Oxygen - - Concentration Weight 83.6 kg (184 lb 3.2 oz) 09/25/2017 5:12 PM CDT Height - - Body Mass Index - - Plan of Treatment Health Maintenance Due Date Last Done Comments Cervical Cancer Scrn (3 2011 Yrs) IMM Influenza Seasonal 12/18/2017 Oct to May (>/=19 yrs) Procedures Procedure Name Priority Date/Time Associated Diagnosis Comments GLUCOSE POC Routine 09/25/2017 Results for this 10:21 PM CDT procedure are in the results section. 12 LEAD EKG Routine 09/25/2017 Results for this 5:30 PM CDT procedure are in the results section. GLUCOSE POC Routine 09/25/2017 Results for this 5:16 PM CDT procedure are in the results section. after 02/14/2017 Results * GLUCOSE POC (09/25/2017 10:21 PM) Only the most recent of 2 results within the time period is included. Glucose POC 81 74 - 106 mg/dL [facility] Performing Organization Address [facility] MISYS [facility] * 12 LEAD EKG (09/25/2017 5:30 PM) 12 LEAD EKG FOR [facility] Test Date:2017-09-25 Pat Name: INÉS TRINIDAD Department: Room: Gender: F It Support Technician: [id number] :1989-03 Requested By: Order Number: Ian carty MD: Mike Levin Measurements Intervals [place] Rate: 80 P:75 SD: 141 QRS: 50 QRSD: 68 T:47 QT: 344 QTc:397 Interpretive Statements SINUS RHYTHM POSSIBLE LEFT ATRIAL ENLARGEMENT [-0.1mV P WAVE IN V1/V2] Electronically Signed On 09-25-17 17:33:01 CDT by Mike Levin Performing Organization Address [facility] Phone Number [facility] after 02/14/2017
--- OUTSIDE RECORDS SUMMARY | 2018-02-15 22:46 | XMS REPORT | Summary of Care ---
Author Author [facility] Organization [facility] Address Unknown Phone Unavailable Encounter MICKY Flynn([place]) [id number] Date(s): 03/04/15 - 03/05/15 [facility] [address] [place] [address]- [phone] Discharge Diagnosis: Acute URI Discharge Disposition: Home Attending Physician: Jamel Aleman MD Vital Signs 1 2 3 Most recent to oldest [Reference Range]: 157.48 cm (03/04/15 8:07 PM) Height 97.8 DegF (03/04/15 8:07 PM) Temperature Oral [96.4-99.1 DegF] 109/80 mmHg (03/05/15 12:00 AM) 110/73 mmHg (03/04/15 11:00 PM) 106/76 mmHg (03/04/15 8:07 PM) Blood Pressure [90-140/60-90 mmHg] 17 BRMIN (03/05/15 12:00 AM) 18 BRMIN (03/04/15 11:00 PM) 15 BRMIN (03/04/15 8:07 PM) Respiratory Rate [14-20 BRMIN] 88 bpm (03/05/15 12:00 AM) 90 bpm (03/04/15 11:00 PM) 89 bpm (03/04/15 8:07 PM) Peripheral Pulse Rate [60-100 bpm] 90.909 kg (03/04/15 8:07 PM) Weight 36.66 m2 (03/04/15 8:07 PM) Body Mass Index Problem List No data available for this section Allergies, Adverse Reactions, Alerts Substance Reaction Severity Status NKDA Active Medications Benadryl 25 mg, Route: PO, Drug form: LIQ, ONCE, Dosing Weight 90.909, kg, Priority: STAT , Start date: 03/04/15 20:10:00, Stop date: 03/04/15 20:10:00 Start Date: 03/04/15 Stop Date: 03/04/15 Status: Completed Cheratussin AC oral syrup 5 ml, PO, Q4H, PRN for cough, X 14 day, # 420 mL, 0 Refill(s) Start Date: 03/05/15 Stop Date: 03/19/15 Status: Ordered ibuprofen 800 mg, Route: PO, Drug form: SUSP, ONCE, Dosing Weight 90.909, kg, Priority: ST AT, Start date: 03/04/15 20:11:00, Stop date: 03/04/15 20:11:00 Start Date: 03/04/15 Stop Date: 03/04/15 Status: Completed Tylenol with Codeine 120 mg-12 mg/5 mL oral liquid 15 mL, Route: PO, Dosing Weight 90.909, kg, ONCE, Start date: 03/04/15 20:10:00, Stop date: 03/04/15 20:10:00 Start Date: 03/04/15 Stop Date: 03/04/15 Status: Completed Results URINE CHEM Most recent to 1 oldest [Reference Range]: U Preg [Negative] Negative (03/04/15 8:25 PM) URINE AND STOOL Most recent to 1 oldest [Reference Range]: UA Turbidity [Clear] Clear (03/04/15 8:25 PM) UA Color [Yellow] Yellow *NA* (03/04/15 8:25 PM) UA pH [5.0-8.0] 7.5 (03/04/15 8:25 PM) UA Spec Grav 1.020 [<=1.030] (03/04/15 8:25 PM) UA Glucose [Negative Negative mg/dL mg/dL] (03/04/15 8:25 PM) UA Blood [Negative] Negative (03/04/15 8:25 PM) UA Ketones [Negative Negative mg/dL mg/dL] *NA* (03/04/15 8:25 PM) UA Protein [Negative Negative mg/dL mg/dL] (03/04/15 8:25 PM) UA Urobilinogen 0.2 EU/dL [0.1-1.0 EU/dL] (03/04/15 8:25 PM) UA Bili [Negative] Negative *NA* (03/04/15 8:25 PM) UA Leuk Est Negative [Negative] (03/04/15 8:25 PM) UA Nitrite Negative [Negative] (03/04/15 8:25 PM) UA WBC [None Seen 0-2 /HPF /HPF] (03/04/15 8:25 PM) UA RBC [0-2 /HPF] 0-2 /HPF (03/04/15 8:25 PM) UA Bacteria [None Few /HPF Seen /HPF] (03/04/15 8:25 PM) UA Sq Epi [Few /LPF] Occasional /LPF (03/04/15 8:25 PM) RAPID Most recent to 1 oldest [Reference Range]: Grp A Strep Scr Negative [Negative] (03/04/15 8:25 PM) VIRAL - SEROLOGY Most recent to 1 oldest [Reference Range]: Influ A [Negative] Negative (03/04/15 8:25 PM) Influ B [Negative] Negative (03/04/15 8:25 PM) Immunizations No data available for this section Procedures No data available for this section Social History Social History Type Response Smoking Status Never smoker; Type: Cigarettes; Exposure to Tobacco Smoke None; Cigarette Smoking Last 365 Days No; Reg Smoking Cessation Counseling No Assessment and Plan No data available for this section
--- OUTSIDE RECORDS SUMMARY | 2018-02-15 22:47 | XMS REPORT | Clinical Summary ---
Author Author [facility] Organization [facility] Address Unknown Phone Unavailable Care Team Providers Care Service Order Taker Name Role Phone PCP Unavailable Allergies Active Allergy Reactions Severity Noted Date Comments Hvd-Ttnienklhzfmg-Zxar-Bu 09/17/2017 ffers Sulfamethoxazole-Trimetho 09/17/2017 prim Ibuprofen 09/17/2017 [...] encounter (Primary Dx) 09/17/2017 Pharmacy Visit after 02/01/2017 Social History Tobacco Use Types Packs/Day Years [...] procedure are in the results section. after 02/01/2017 Results * GLUCOSE POC (09/25/2017 10:21 PM) Only the most recent of 2 results within the time period is included. Glucose POC 81 74 - 106 mg/dL [facility] Performing Organization Address [facility] [place] Phone Number MISYS [facility] * 12 LEAD EKG (09/25/2017 5:30 PM) 12 LEAD EKG FOR [facility] Test Date:2017-09-25 Pat Name: INÉS TRINIDAD Department: Room: Gender: F Local Hazmat Driver: [id number] :1989-03 Requested By: Order Number: Ian carty MD: Mike Levin Measurements Intervals [place] Rate: 80 P:75 SD: 141 QRS: 50 QRSD: 68 T:47 QT: 344 QTc:397 Interpretive Statements SINUS RHYTHM POSSIBLE LEFT ATRIAL ENLARGEMENT [-0.1mV P WAVE IN V1/V2] Electronically Signed On 09-25-17 17:33:01 CDT by Mike Levin Performing Organization Address [facility] [place] Phone Number [facility] after 02/01/2017
--- OUTSIDE RECORDS SUMMARY | 2018-02-15 22:47 | XMS REPORT ---
Author [facility] Address Unknown Phone Unavailable Care Team Providers Care [place] Name Role Phone JAE ERVIN Unavailable Unavailable ADDIE WHITE Unavailable Unavailable CRUZ KANG Unavailable Unavailable HENNA FARFAN Unavailable Unavailable Problems This patient has no known problems. Allergies, Adverse Reactions, Alerts This patient has no known allergies or adverse reactions. Medications This patient has no known medications. Encounters Start Date/Time End Date/Time Encounter Type Admission Type Attending [facility] Care Department Encounter ID 2018-04-24 00:00:00 2018-04-24 00:00:00 Outpatient [facility] [id number] 2018-02-05 15:23:41 2018-02-05 15:23:41 Outpatient [facility] [id number] 2018-02-05 00:00:00 2018-02-05 00:00:00 Outpatient [facility] [id number] 2017-09-25 20:20:05 2017-09-25 20:20:05 Emergency [facility] [id number] 2017-09-17 10:30:25 2017-09-17 10:30:25 Emergency [facility] [id number] 2016-10-07 00:00:00 2016-10-11 00:00:00 Outpatient [facility] [id number] Results Test Description Test Time Test Comments Text Results Atomic Results Result Comments SCREEN, URINE 2018-02-01 23:41:00 TEST URINE (BEAKER) (test qjqo=872) Negative CBC W/PLT COUNT & AUTO [id number] 01:50:00* Test Item Value Reference Range Comments WHITE BLOOD CELL COUNT (BEAKER) (test jeae=932) 9.1 K/ L 4.0-10.0 RED BLOOD CELL COUNT (BEAKER) (test lxzs=357) 4.21 M/ L 4.00-5.00 HEMOGLOBIN (BEAKER) (test nqvq=009) 12.1 GM/DL 12.0-15.0 HEMATOCRIT (BEAKER) (test opec=568) 35.8 % 36.0-45.0 MEAN CORPUSCULAR VOLUME (BEAKER) (test lgpv=972) 85.0 fL 82.0-99.0 MEAN CORPUSCULAR HEMOGLOBIN (BEAKER) (test sqib=892) 28.7 pg 27.0-33.0 MEAN CORPUSCULAR HEMOGLOBIN CONC (BEAKER) (test khlp=795) 33.8 GM/DL 32.0-36.0 RED CELL DISTRIBUTION WIDTH (BEAKER) (test eqee=572) 13.2 % 10.3-14.2 PLATELET COUNT (BEAKER) (test jtmu=319) 288 K/CU MM 150-430 MEAN PLATELET VOLUME (BEAKER) (test wkyu=180) 9.2 fL 6.5-10.5 NUCLEATED RED BLOOD CELLS (BEAKER) (test nweu=002) 0 /100 WBC 0-0 NEUTROPHILS RELATIVE PERCENT (BEAKER) (test ewbg=620) 57 % LYMPHOCYTES RELATIVE PERCENT (BEAKER) (test ksno=846) 37 % MONOCYTES RELATIVE PERCENT (BEAKER) (test bnbg=764) 5 % EOSINOPHILS RELATIVE PERCENT (BEAKER) (test ksbr=612) 1 % BASOPHILS RELATIVE PERCENT (BEAKER) (test rurl=503) 0 % NEUTROPHILS ABSOLUTE COUNT (BEAKER) (test zyxe=935) 5.19 K/ L 1.80-8.00 LYMPHOCYTES ABSOLUTE COUNT (BEAKER) (test jhky=369) 3.32 K/ L 1.48-4.50 MONOCYTES ABSOLUTE COUNT (BEAKER) (test vecr=553) 0.48 K/ L 0.00-1.30 EOSINOPHILS ABSOLUTE COUNT (BEAKER) (test xmth=547) 0.09 K/ L 0.00-0.50 BASOPHILS ABSOLUTE COUNT (BEAKER) (test ebtd=114) 0.02 K/ L 0.00-0.20 CT, BRAIN, WITHOUT [id number] 18:50:00Reason for exam:->headache, eye painWhat is the patient's sedation requirement?->No SedationIs the patient ?->NoFINAL REPORT CT head without contrast 08/09/2017 6:47 PM CLINICAL HISTORY: Headache, acute, norm neuro examheadache, eye pain TECHNIQUE: Axial noncontrast CT images [...] with MRI is recommended. Signed: James Mir MDReport Verified Date/Time: 08/09/2017 18:50:12 Reading Location: [facility] Radiology Reading Room C METABOLIC [id number] 23:51:00* Test Item Value Reference Range Comments SODIUM (BEAKER) (test nswb=280) 141 meq/L 135-148 POTASSIUM (BEAKER) (test ikog=487) 3.9 meq/L 3.6-5.5 CHLORIDE (BEAKER) (test gteb=317) 102 meq/L 98-106 CO2 (BEAKER) (test uffg=539) 24 meq/L 20-29 BLOOD UREA NITROGEN (BEAKER) (test ywpg=901) 5 mg/dL 10-26 CREATININE (BEAKER) (test jpto=753) 0.87 mg/dL 0.50-1.20 GLUCOSE RANDOM (BEAKER) (test acnr=197) 83 mg/dL 70-110 CALCIUM (BEAKER) (test aayn=569) 10.0 mg/dL 8.5-10.5 EGFR (BEAKER) (test ndbv=0200) 95 mL/min/1.73 sq m ESTIMATED GFR IS NOT ACCURATE CREATININE CLEARANCE IN PREDICTING GLOMERULAR FILTRATION RATE. ESTIMATED GFR IS NOT APPLICABLE FOR DIALYSIS PATIENTS. [id number] 23:50:00* Test Item Value Reference Range Comments MAGNESIUM (BEAKER) (test acje=481) 2.1 mg/dL 1.5-3.0 RAD, CHEST, 2 [id number] 01:23:00Reason for exam:->CHILLSReason for exam:-> SHORTNESS OF BREATHReason for exam:->COUGHFINAL REPORT EXAM: 2 VIEW CHEST INDICATION: SHORTNESS [...] occult process is suspected. Signed: Su Norwood MDReport Verified Date/Time: 02/21/2017 01:23:55 Reading Location: [address] Reading Room UE [id number] 12:12:00Surgical Pathology Report Case: [id number] Authorizing Provider: Ayanna Farfan Ordering Provider: Ayanna Farfan MD [place], MD Ordering Location: [facility] Collected: 04/29/2016 1300 SERVICES Pathologist: Karime Pete MD Re ceived: 04/29/2016 1306 Specimens: A) - Appendix, APPENDIX FOR FROZEN B) - Appendix, MESOAPPENDIX A. 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 The tumor involves mesoappendix in part A and appears to approaching the tissue edges. The mesoappendiceal margin cannot be adequately assessed in Part A. Part B of additional mesoappendix is received unoriented. Several foci of well-differentiated tumor are identified in the adipose tissue. The true mesoappendiceal resection margins cannot be appropriately evaluated. Clinical correlation is recommended.Intradepartmental consultation: Dr. Michael Riley has been consulted on this case and concurs with the diagnosis.APPENDIX, Neuroendocrine Tumor (Carcinoid Tumors): Excision (Appendectomy) or ResectionAppendix NET
--- NOTE | 2018-02-15 23:36 | Diagnostic Imaging Report ---
Exam: PA and lateral view of the chest Indication: Chest pain, shortness of breath, cough Comparison: None Findings: The lungs are clear. No pleural effusions or pneumothorax. The cardiomediastinal silhouette and bones are normal. Impression: Normal chest x-ray. No evidence of pneumonia. Signed by: Dr. Verna Alonso M.D. on 02/15/2018 11:32 PM
== END 2018-02-16 00:19 | disposition home or self-care (01) ==
LOC: FSED 22:43
DX: R07.89 Other chest pain (principal); R05 Cough
CPT/HCPCS: 71046; 93005; 99282

== ENCOUNTER 2019-06-17 21:32 | Emergency (ER) | payer OTHER ==
[~2019-06-17] VITALS: Ht 157.5 cm; Wt 93.4 kg
[~2019-06-17 21:32] MED LIST: BENTYL10 MG/1 ML IV; PEPCID20 MG PO
[2019-06-17] MEDS ORDERED: KEFLEX500 MG PO (21:52)
== END 2019-06-17 22:00 | disposition home or self-care (01) ==
LOC: FSED 21:32
DX: R05 Cough (principal); J20.9 Acute bronchitis, unspecified
CPT/HCPCS: 99282

== ENCOUNTER 2019-10-17 20:42 | Emergency (ER) | payer OTHER ==
[~2019-10-17] VITALS: Ht 157.5 cm; Wt 97.1 kg
[~2019-10-17 20:42] MED LIST changes: +KEFLEX500 MG PO
--- NOTE | 2019-10-17 22:11 | NUR ---
US JOINER COMPLETED US. FHT 183
[2019-10-17 22:17] VITALS: BP 142/85
--- NOTE | 2019-10-17 23:42 | Emergency Department Note ---
History of Present Illnes History of Present Illness Chief Complaint: Abdominal Complaints History of Present Illness This is a 29 year old female about 10 wk c/o pelvic pain after arguing with her boyfriend for few hours no n/v/d, no f/c, hx appendectomy. Historian: Patient Arrival Mode: Car Customer Engagement Specialist Required: No Onset (how long ago): hour(s) Radiation: Reports non-radiation Duration (how long): hour(s) Timing of current episode: constant Progression: waxing and waning Relieving factors: none Exacerbating factors: none Associated symptoms: Reports denies other symptoms Past Medical/Family History Physician Review I have reviewed the patient's past medical and family history. Any updates have been documented here. Past Medical History Recent Fever: No Clinical Suspicion of Infectio: No New/Unexplained Change in Ment: No Past Medical History: None Past Surgical History: Appendectomy Other Surgery: APPENDIX REMOVED BC OF TUMOR Social History Smoking Cessation: Never Smoker Alcohol Use: None Any Illegal Drug Use: No Physically hurt or threatened: No Other Last Tetanus: UTD Any Pre-Existing Lines (PICC,: No Review of Systems Review of Systems Constitutional: Reports no symptoms EENTM: Reports no symptoms Cardiovascular: Reports no symptoms Respiratory: Reports no symptoms Gastrointestinal: Reports as per HPI Genitourinary: Reports no symptoms Musculoskeletal: Reports no symptoms Integumentary: Reports no symptoms Neurological: Reports no symptoms Psychological: Reports no symptoms Endocrine: Reports no symptoms Hematological/Lymphatic: Reports no symptoms Physical Exam Related Data Allergies: Coded Allergies: azithromycin (Verified Allergy, Unknown, CHEST TIGHTNESS, 06/06/19) ibuprofen (Verified Allergy, Unknown, 02/15/18) sulfamethoxazole (Verified Allergy, Unknown, 02/15/18) trimethoprim (Verified Allergy, Unknown, 02/15/18) Triage Vital Signs Vital Signs Date Time Temp Pulse Resp B/P (MAP) Pulse Ox O2 Delivery O2 Flow Rate FiO2 10/17/19 20:49 100.1 90 18 142/85 100 Room Air Physical Exam CONSTITUTIONAL Constitutional: Present well-developed, Present well-nourished HENT HENT: Present normocephalic, Present atraumatic, Present oropharynx clear/moist, Present nose normal HENT L/R: Present left ext ear normal, Present right ext ear normal EYES Eyes: Reports PERRL, Reports conjunctivae normal NECK Neck: Present ROM normal PULMONARY Pulmonary: Present effort normal, Present breath sounds normal CARDIOVASCULAR Cardiovascular: Present regular rhythm, Present heart sounds normal, Present capillary refill normal, Present normal rate GASTROINTESTINAL Abdominal: Present soft, Present nontender, Present bowel sounds normal GENITOURINARY Genitourinary: Present exam deferred SKIN Skin: Present warm, Present dry MUSCULOSKELETAL Musculoskeletal: Present ROM normal NEUROLOGICAL Neurological: Present alert, Present oriented x 3, Present no gross motor or sensory deficits PSYCHOLOGICAL Psychological: Present mood/affect normal, Present judgement normal Results Laboratory Lab results reviewed: Yes (UA clean) Imaging Impressions no miscarriage, live IUP Diagnostics Tests Diagnostic test(s) reviewed: Yes Assessment & Plan Medical Decision Making MDM abdominal pain in , central pain Reassessment Reassessment time: 22:05 Reassessment walks to bath room , in [facility], on her phone at the same time Assessment & Plan Final Impression: (1) Abdominal pain during Depart Disposition: HOME, SELF-CARE Last Vital Signs Date Time Temp Pulse Resp B/P (MAP) Pulse Ox O2 Delivery O2 Flow Rate FiO2 10/17/19 22:17 90 18 100 10/17/19 20:55 100.1 142/85 Room Air Home Meds Active Scripts Cephalexin Monohydrate (KEFLEX) 500 Mg Capsule, 500 MG PO Q6H, #28 TAB 0 Refills Prov:MARGARET AMOR MD 06/17/19 Famotidine (PEPCID) 20 Mg Tablet, 20 MG PO BID, #20 TAB Prov:MARGARET AMOR MD 06/06/19 Dicyclomine Hcl (BENTYL) 10 Mg/1 Ml Ampul, 10 MG IV QID for pain, #20 VIAL Prov:MARGARET AMOR MD 06/06/19 Physician Attestation Provider Attestation add Pepcid, Zofran, Tylenol on d/c DANIEL WICK MD Oct 17, 2019 23:42
--- NOTE | 2019-10-17 23:43 | Diagnostic Imaging Report ---
EXAM: First Trimester Obstetric Pelvic Ultrasound INDICATION: Abdominal pain, positive test COMPARISON: None TECHNIQUE: Grayscale transverse and sagittal transabdominal and transvaginal images were obtained of the pelvis. Transvaginal imaging was medically necessary to better evaluate the endometrium, adnexa, and fetus. CLINICAL HISTORY: 29 year old Last menstrual period: 08/04/2019 FINDINGS: Uterus: Orientation: Normal Size: 9 x 7.2 x 7.3 cm, enlarged Mass: None Cervix: Nabothian cysts Gestational Sac: Location: Intrauterine Average sac diameter: 3.8 cm Estimated sonographic GA: 9 weeks 0 days Appearance: Normal in contour Subchorionic hemorrhage: None Yolk sac: Not seen Embryo/Fetus: Pattison rump length: 4.41 cm Estimated sonographic GA: 11 weeks 5 days Cardiac activity: 191 bpm, elevated Right ovary Size: 3.7 x 1.7 x 1.2 cm Mass/Cyst: None Left ovary Size: 2.4 x 1.6 x 1.5 cm Mass/Cyst: None Cul-de-sac: No free fluid IMPRESSION: 1. Viable intrauterine : Routine followup. Elevated heart rate, 191 beats per minute. 2. Estimated sonographic gestational age: 11 weeks 5 days CLASSIFICATION Viable: can potentially result in a liveborn baby Visualized embryo with FHT Nonviable: Findings diagnostic of failure * Ectopic * CRL >= 7 mm and no FHT * MSD >= 25 mm and no embryo * No FHT >= 2 weeks after US showed GS w/o YS * No FHT >= 11 days after US showed GS w/ YS Intrauterine of uncertain viability: Intrauterine GS with no FHT and no definite findings of failure of unknown location: Positive urine or serum test and no IUP or ectopic on US Diagnostic Criteria for Nonviable Early in the First Trimester N Engl J Med 2013;369:1443-51. DOI: [id number] Signed by: Dash Bragg DO on 10/17/2019 11:40 PM
--- OUTSIDE RECORDS SUMMARY | 2019-10-18 21:00 | XMS REPORT | Clinical Summary ---
Author Author [facility] Organization [facility] Address Unknown Phone Unavailable Care Team Providers Care [place] Name Role Phone PCP Unavailable Allergies Comments Active Allergy Reactions Severity Noted Date Yra-Sksbaqiyhbqkr-Xacn-Bu 09/17/2017 ffers Sulfamethoxazole-Trimetho 09/17/2017 prim Ibuprofen 09/17/2017 Medications End Date Status Medication Sig Dispensed Refills Start Date Active cetirizine (ZYRTEC) 10 mg Take 1 tablet 30 tablet 0 tabletIndications: by mouth 8 Allergic reaction, daily. initial encounter Active metoclopramide (REGLAN) Take 1 tablet 15 tablet 0 10 mg tabletIndications: by mouth 3 8 Migraine without status times daily migrainosus, not as needed for intractable, unspecified Other migraine type (headache). Active Problems Problem Noted Date Migraine 09/25/2017 Social History Date Tobacco Use Types Packs/Day Years Used Never Assessed Sex Assigned at Date Recorded Not on file Industry Job Start Date Occupation Not on file Not on file Not on file Travel End Travel History Travel Start No recent travel history available. Last Filed Vital Signs Not on file Plan of Treatment Health Maintenance Due Date Last Done Comments Cervical Cancer Scrn (3 2011 Yrs) IMM Influenza Seasonal 12/19/2019 Oct to May (>/= 19 yrs) Results Not on fileafter 10/16/2018 Insurance Type Payer Benefit Subscriber ID Effective Phone Address Plan / Dates Group [place] [employer] [id number] TANF xxxxxxxxx 2017-P [phone] [id number] [place] [address] [facility] SELF-PAY SELF-PAY xxxxxxx 2017-5 [id number] [place] [address] Guarantor Name Account Relation to Date of Phone Billin g Address Type Patient INÉS MAYORGA Personal/F Head of 1990 [id number] [place] (Home) [place], [place] [address] (Self)
--- OUTSIDE RECORDS SUMMARY | 2019-10-18 21:00 | XMS REPORT | Clinical Summary ---
Author Author [facility] Address Unknown Phone Unavailable Care Team Providers Care Dumper Mold Cleaner Name Role Phone Kenisha South PCP Allergies Comments Active Allergy Reactions Severity Noted Date States makes chest feel "tihgt" Azithromycin 09/21/2018 Sulfamethoxazole-Trimetho Swelling 09/13/2017 prim Egg 10/31/2017 Lip swelling Ibuprofen 08/26/2017 Medications End Date Status Medication Sig Dispensed Refills Start Date 10/21/2018 albuterol (ACCUNEB) 2.5 Take 3 mL 75 mL 0 mg /3 mL (0.083 %) (2.5 mg 9 nebulizer solution total) by nebulization every 6 (six) hours as needed for wheezing for up to 30 days. 07/30/2019 traMADoL (ULTRAM) 50 mg Take 1 tablet 20 tablet 0 tabletIndications: acute (50 mg total) 0 pain by mouth every 6 (six) hours as needed for moderate pain for up to 10 days .acute pain. Active Problems Not on file Encounters Care Team Description Date Type Specialty Jesse Leyva MD Chest pain, unspecified type (Primary Dx ) 07/20/2019 Emergency Emergency Medicine 07/20/2019 Travel after 10/16/2018 Social History Date Tobacco Use Types Packs/Day Years Used Never Smoker Smokeless Tobacco: Never Used Drinks/Week oz/Week Comments Alcohol Use No Sex Assigned at Date Recorded Not on file Industry Job Start Date Occupation Not on file Not on file Not on file Travel End Travel History Travel Start No recent travel history available. Last Filed Vital Signs Reading Time Taken Comments Vital Sign 116/74 07/20/2019 11:05 PM CDT Blood Pressure 72 07/20/2019 11:05 PM CDT Pulse 37.1 C (98.8 F) 07/20/2019 11:05 PM CDT Temperature 16 07/20/2019 11:05 PM CDT Respiratory Rate 100% 07/20/2019 11:05 PM CDT Oxygen Saturation - - Inhaled Oxygen Concentration 90.7 kg (200 lb) 07/20/2019 9:53 PM CDT Weight 157.5 cm (5' 2") 07/20/2019 9:53 PM CDT Height 36.58 07/20/2019 9:53 PM CDT Body Mass Index Plan of Treatment Health Maintenance Due Date Last Done Comments CERVICAL CANCER SCREENING 2011 INFLUENZA VACCINE 10/19/2019 Procedures Comments Procedure Name Priority Date/Time Associated Diag nosis HCG QUALITATIVE, URINE STAT 07/20/2019 SCREEN 10:00 PM CDT URINALYSIS STAT 07/20/2019 10:00 PM CDT XR CHEST 2 VW STAT 07/20/2019 9:59 PM CDT ESTIMATED GFR STAT 07/20/2019 9:58 PM CDT B NATRIURETIC PEPTIDE STAT 07/20/2019 9:58 PM CDT TROPONIN, I-STAT STAT 07/20/2019 9:58 PM CDT COMPREHENSIVE METABOLIC STAT 07/20/2019 PANEL 9:58 PM CDT HC COMPLETE BLD COUNT STAT 07/20/2019 W/AUTO DIFF 9:58 PM CDT ECG 12-LEAD STAT 07/20/2019 9:48 PM CDT after 10/16/2018 Results * Urinalysis (07/20/2019 10:00 PM CDT) Glucose, UA Negative Negative [facility] Bilirubin, UA Negative Negative [facility] Ketones, UA Negative Negative [facility] Specific 1.015 1.001 - 1.035 [place] gravity, UA [facility] Blood, UA Negative Negative [facility] pH, UA 7.0 5.0 - 8.5 [facility] Protein, UA Negative Negative [facility] Urobilinogen, <2.0 <2.0 [place] UA [facility] Nitrite, UA Negative Negative [facility] Leukocyte Trace (A) Negative [place] esterase, UA [facility] Color, UA Yellow [facility] Appearance, UA Clear [facility] Specimen Urine Performing Organization Address City/[facility] [address]/[facility] Ph one [place] [address] PATHOLOGY AND GENOMIC [address] [place] [address] EMERGENCY CARE [place] * hCG qualitative, urine screen (07/20/2019 10:00 PM CDT) hCG Negative [place] qualitative, Comment: MANDAEISM CADOGAN urine Sensitivity of HCG test: 25 EMERGENCY CARE mIU/mL CENTER Negative test results in patients suspected to be should be retested with a sample obtained 48-72 hours later, or by performing a quantitative assay. Specimen Urine Performing Organization Address City/[facility] [address]/[facility] Ph one [place] [address] PATHOLOGY AND GENOMIC [address] [facility] ANGEL [address] [place] [address] EMERGENCY [facility] * XR Chest 2 Vw (07/20/2019 9:59 PM CDT) Specimen Narrative Performed At EXAMINATION: XR CHEST 2 VW [facility] CLINICAL HISTORY: 29 years Female CP COMPARISON: 07/19/2018 IMPRESSION: Lines/Tubes: None. Lungs/Pleura: The lungs are clear. No pleural effusion or pneumothorax. Heart/Mediastinum: The cardiomediastina l silhouette is normal. Bones: No acute osseous abnormality. [facility]-[id number] Procedure Note Interface, Radiology Results Incoming - 07/20/2019 10:03 PM CDT EXAMINATION: XR CHEST 2 VW CLINICAL HISTORY: 29 years Female CP COMPARISON: 07/19/2018 IMPRESSION: Lines/Tubes: None. Lungs/Pleura: The lungs are clear. No pleural effusion or pneumothorax. Heart/Mediastinum: The cardiomediastinal silhouette is normal. Bones: No acute osseous abnormality. [facility]-[id number] Performing Organization Address City/State/Zipcode Ph one Number [facility] [address] [place] [address] * Estimated GFR (07/20/2019 9:58 PM CDT) Estimated GFR >=90 mL/min/1.73 m2 [place] Comment: [facility] G[facility] C[facility] G1 >=90 Normal or high G2 60-89 Mildly decreased G3a 45-59 Mildly to moderately decreased G3b 30-44 Moderately to severely decreased G4 15-29 Severely decreased G5 <15 Kidney failure The eGFR was calculated using the Chronic Kidney Disease Epidemiology Collaboration (CKD-EPI) equation. Interpretation is based on recommendations of the National Kidney Foundation-Kidney Disease Outcomes Quality Initiative (NKF-KDOQI) published in 2014. Specimen Performing Organization Address City/[facility] [address]/[facility] Ph one Number DEPARTMENT OF [address] [facility] [place] [address] PATHOLOGY AND GENOMIC [address] [facility] EMERGENCY CARE [facility] ANGEL GRAY [address] [place] [address] EMERGENCY CARE CENTER * Troponin, I-Stat (07/20/2019 9:58 PM CDT) Troponin, 0.01 0.00 - 0.08 ng/mL [place] I-Stat Comment: ANGEL GRAY In patients suspected of EMERGENCY CARE having a myocardial CENTER infarction, along with all other appropriate clinical measures and actions including ECG and other diagnostics as appropriate, measure Ultra TnI at 0 hrs and at 3 hrs. Myocardial infarction VERY LIKELY The 0 hr TnI level is > 0.10 ng/mL Myocardial infarction LIKELY The 0 hr TnI level is > 0.04 ng/mL and 3 hr level is increased or decreased by at least 0.020 ng/mL Myocardial infarction VERY UNLIKELY Both the 0 hr and 3 hr TnI levels <= 0.04 ng/mL(within normal limits) OR 0 hr is > 0.04 ng/mL and 3 hr is increased OR decreased by less than 0.020 ng/mL Specimen Blood Performing Organization Address City/[facility] [address]/[facility] [address] PATHOLOGY AND GENOMIC [address] [place] [address] [address] [place] [address] EMERGENCY CARE CENTER * CBC with platelet and differential (07/20/2019 9:58 PM CDT) WBC 10.69 4.50 - 11.00 k/uL [facility] RBC 4.68 4.20 - 5.50 m/uL [facility] HGB 12.8 12.0 - 16.0 g/dL [facility] HCT 39.9 37.0 - 47.0 % [facility] MCV 85.3 82.0 - 100.0 fL [facility] MCH 27.4 27.0 - 34.0 pg [facility] MCHC 32.1 31.0 - 37.0 g/dL [facility] RDW - SD 42.4 37.0 - 55.0 fL [facility] MPV 9.1 8.8 - 13.2 fL [facility] Platelet count 304 150 - 400 k/uL [facility] Neutrophils 57.8 39.0 - 69.0 % [facility] Lymphocytes 32.3 25.0 - 45.0 % [facility] Monocytes 9.0 0.0 - 10.0 % [facility] Eosinophils 0.8 0.0 - 5.0 % [facility] Basophils 0.1 0.0 - 1.0 % [facility] Specimen Blood Performing Organization Address [facility] [address]/[facility] Ph one Number [address] [place] [address] PATHOLOGY AND GENOMIC [address] [facility] [address] [facility] [address] [place] [address] EMERGENCY CARE CENTER * B natriuretic peptide (07/20/2019 9:58 PM CDT) BNP 26 0 - 100 pg/mL [facility] Specimen Blood Performing Organization Address [facility] [address]/[facility] Ph one Number DEPARTMENT [address] [address] PATHOLOGY AND GENOMIC [address] [facility] [address] [facility] [address] [place] [address] EMERGENCY CARE CENTER * Comprehensive metabolic panel (07/20/2019 9:58 PM CDT) Sodium 136 135 - 148 mEq/L [facility] Potassium 3.8 3.5 - 5.0 mEq/L [facility] Chloride 101 98 - 112 mEq/L [facility] CO2 27 24 - 31 mEq/L [facility] Anion gap 8@ANIO 7 - 15 mEq/L [facility] BUN 18 6 - 20 mg/dL [facility] Creatinine 0.85 0.50 - 0.90 mg/dL [facility] Glucose 95 65 - 99 mg/dL [facility] Calcium 9.2 8.3 - 10.2 mg/dL [facility] Protein 7.8 6.3 - 8.3 g/dL [facility] Albumin 4.2 3.5 - 5.0 g/dL [facility] A/G ratio 1.2 0.7 - 3.8 [facility] Alkaline 76 35 - 104 U/L [place] phosphatase [facility] AST 18 10 - 35 U/L [facility] ALT 12 5 - 50 U/L [facility] Total bilirubin 0.2 0.0 - 1.2 mg/dL [facility] Specimen Blood Performing Organization Address [facility] [address]/[facility] Ph one Number [address] [address] PATHOLOGY AND GENOMIC [address] [facility] EMERGENCY CARE CENTER ONEL Juarez[address] [facility] [address] [place] [address] EMERGENCY CARE CENTER * ECG 12 lead (07/20/2019 9:48 PM CDT) Ventricular 83 [facility] rate Atrial rate 83 [facility] VA interval 148 [facility] QRSD interval 64 [facility] QT interval 334 [facility] QTC interval 392 [facility] P axis 1 52 [facility] QRS axis 1 45 [facility] T wave axis 23 [facility] EKG impression Sinus rhythm with marked sinus [facility] MU SE arrhythmia-Otherwise normal ECG-In automated comparison with ECG of 26-JAN-2018 22:22,-No significant change was found- Specimen Narrative Performed At This result has an attachment that is n ot available. Performing Organization Address City/State/Zipcode Ph one Number [facility] MUSE [address] [place] [address] after 10/16/2018 Insurance Type Payer Benefit Subscriber ID Effective Phone Address Plan / Dates Group HMO [facility] xxxxxxxxx 19 [id number] PLAN [facility] Advance Directives For more information, please contact: [phone] Patient Handyperson Explanation Type Date Recorded Advance Directives, 08/16/2015 4:02 PM Living Will and Medical Power of Partner Integration Planner Advance Directives, 08/29/2017 9:09 PM Living Will and Medical Power of Partner Integration Planner Advance Directives, 10/31/2017 8:33 AM Living Will and Medical Power of Partner Integration Planner Advance Directives, 12/02/2017 11:02 PM Living Will and Medical Power of Partner Integration Planner
--- OUTSIDE RECORDS SUMMARY | 2019-10-18 21:00 | XMS REPORT | Clinical Summary ---
Author Author ANDRÉS [facility] Organization [facility] Address Unknown Phone Unavailable Care Team Providers Care Manager Safe Name Role Phone Pcp, No PCP Unavailable Allergies Comments Active Allergy Reactions Severity Noted Date Sulfamethoxazole-Trimetho 02/01/2018 prim Lip swelling Ibuprofen 08/26/2017 Hives, sob Metronidazole 02/02/2018 Azithromycin 09/18/2018 Medications End Date Status Medication Sig Dispensed [...] 0 device (AEROCHAMBER) Spcr albuterol 7 inhaler. 09/18/2019 albuterol HFA (VENTOLIN Inhale 2 1 Inhaler 0 HFA) 90 mcg/actuation puffs by 9 inhaler mouth via inhaler every 4 (four) hours as needed for Wheezing. 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
--- OUTSIDE RECORDS SUMMARY | 2019-10-18 21:01 | XMS REPORT | Summary of Care ---
Author WEI Trevino M.A. Organization Unknown Address [facility] Phone Unavailable Care Team Providers Care Mutuel Cashier Name Role Phone DANIEL Leo, LUCERO Unavailable Unavailable TOM IVORY MD Unavailable Unavailable JAZMINE SANCHEZ DO Unavailable Unavailable Unavailable Unavailable Functional Status Name Dates Details Functional status health issues are not documented Status: Name Dates Details Cognitive status health issues are not d ocumented Status: Problems Name Dates Details Visit for gynecologic examination (V72.3 1, Z01.419) Status: Active (V22.2, Z34.90) Status: Active Nausea (787.02, R11.0) Status: Active Medications Name Dates Details Vitamins TABS Active Vitamin D TABS * Refills: 0 Active Multiple Vitamins TABS * Refills: 0 Active Doxylamine-Pyridoxine 10-10 MG Oral Tablet Delayed Release TAKE 1 TABLET BY MOUTH DAILY NEEDED * Quantity: 30 Refills: 5 DANIEL Leo, LUCERO * Start : 27-Sep-2019 Active Allergies and Adverse Reactions Name Dates Details Bactrim (Allergy) Status: Active ibuprofen (Allergy) Status: Active Zithromax (Allergy) Status: Active Past Medical History Name Dates Details History of allergy (V15.09, Z88.9) Status: Resolved History of bronchitis (V12.69, Z87.09) Status: Resolved History of Kidney mass (593.9, N28.89) Status: Resolved Procedures Procedure Dates Details [Q] OBSTETRIC PANEL W/FOURTH GENERATION HIV Date: 0 [QL] CULTURE, URINE, ROUTINE Date: 27-Sep-2019 [QL] URINALYSIS, COMPLETE Date: 27-Sep-2019 [Q] HEMOGLOBINOPATHY EVALUATION Date: 27-Sep-2019 [Q] [id number] DEHYDROGENASE, QUANT. Date: 2019 [QL] CYSTIC FIBROSIS SCREEN Date: 27-Sep-2019 [Q] SMA CARRIER SCREEN Date: 27-Sep-2019 . [facility] - PAP w/reflex HPV if ASC-US or above Date: 2019 History of Appendectomy Completed Immunization Name Dates Details Immunizations not documented Family History Name Dates Details Family history of hypertension (V17.49, Z82.49) Status: Active Family history of thyroid disease (V18.1 9, Z83.49) Status: Active Family history of diabetes mellitus (V18 .0, Z83.3) Status: Active Name Dates Details Family history of thyroid disease (V18.1 9, Z83.49) Status: Active Name Dates Details Family history of hypertension (V17.49, Z82.49) Status: Active Family history of thyroid disease (V18.1 9, Z83.49) Status: Active Social History Name Dates Details - Status: Name Dates Details Never smoked tobacco (finding) Vital Signs Date Test Result Details :14 Systolic blood pressure 114 mm[Hg] Status: Comments : Location: RUE; Position: Sitting Diastolic blood pressure 73 mm[Hg] Status: Comment s: Location: RUE; Position: Sitting Physical Findings 0 Status: Comments: Al danitzaol Screen - How many times in the past yr have you had 5 (for M) or 4 (for F) or 4 (for all > 65yrs) or more drinks in a day? Physical Findings 0 Status: Comments: PH Q-9 Adult Depression Screening Body height 62 in Status: Weight 215 lb Status: Body mass index (BMI) [Ratio] 39.32 kg/m2 Status: Body surface area Derived from formula 1.97 m2 S tatus: Body temperature 98.4 f Status: Comments: Me thod: Temporal Heart Rate 90 /min Status: Respiratory rate 16 /min Status: :18 Systolic blood pressure 116 mm[Hg] Status: Comments : Location: LUE; Position: Sitting Diastolic blood pressure 75 mm[Hg] Status: Comment s: Location: LUE; Position: Sitting Body height 62 in Status: Weight 215.5 lb Status: Body mass index (BMI) [Ratio] 39.42 kg/m2 Status: Body surface area Derived from formula 1.97 m2 S tatus: Body temperature 98.2 f Status: Comments: Me thod: Temporal Heart Rate 89 /min Status: Comments: Lo cation: L Brachial Artery; Respiratory rate 16 /min Status: O2 SAT 100 % Status: Comments: So urce: RA Results Date Description Value Details :23 [QL] HCG, TOTAL, Q[place] [address] {miU/ml} (Above high thre shold) Comments: Reference RangeNon or premenopausal <5Postmenopausal <10 Values from different assay methods may vary.The use of this assay to monitor or to diagnose patients with cancer or any condition unrelatedto has not been cleared or approved bythe FDA or the planning specialist of the assay. :23 [QL] ANTIBODY SCREEN, RBC W/REFL ID, TIT ER AND AG ANTIBODY SCREEN, RBC W/REFL ID, TITER AN D AG NO ANTIBODIES DETECTED (Normal) Comments: Reference range No antibodies detected This assay is a screening test for the detection of red blood cell antibodies. The test is not to be used for pretransfusion screening or for the medical management of an alloimmunized . :23 [QL] ABO GROUP AND RH TYPE Comments: RE PORT COMMENT:FASTING:NO ABO GROUP A RH TYPE RH(D) POSITIVE Comments: For a dditional information, please refer to http://education.[employer] Social/faq/EAP640 (This link is being provided for informational/educational purposes only.) :40 [O] Urine Test (in office) Test, Urine POSITIVE Control Line Present? Yes (Normal) Plan of Care Name Dates Details Planned Observations Planned Goals not documented Planned Encounters Appointment; JAZMINE SANCHEZ M.D. On: 25-Oct-2019 13:30 Interventions Provided Medication Changes* Doxylamine-Pyridoxine 10-10 MG Oral Tablet Delayed Release - Start Labs/Procedures/Imaging* . [facility] - PAP w/reflex HPV if ASC-US or above; To Be Done: 27 Sep 2019 * [Q] [id number] DEHYDROGENASE, QUANT.; To Be Done: 27 Sep 2019 * [Q] HEMOGLOBINOPATHY EVALUATION; To Be Done: 27 Sep 2019 * [Q] OBSTETRIC PANEL W/FOURTH GENERATION HIV; To Be Done: 27 Sep 2019 * [Q] SMA CARRIER SCREEN; To Be Done: 27 Sep 2019 * [QL] CULTURE, URINE, ROUTINE; To Be Done: 27 Sep 2019 * [QL] CYSTIC FIBROSIS SCREEN; To Be Done: 27 Sep 2019 * [QL] URINALYSIS, COMPLETE; To Be Done: 27 Sep 2019 * Tobacco Use Screening; Done: 27 Sep 2019 Instructions Name Dates Details Instructions not documented Encounters Appointment; JAZMINE SANCHEZ M.D. Encounter Diagnosis: Problem not documented On: 10-Sep-2019 13:00 Appointment; JAZMINE SANCHEZ M.D. Encounter Diagnosis: Problem not documented On: 24-Sep-2019 9:45 Appointment; [facility], 1 Encounter Diagnosis: Problem not documented On: 24-Sep-2019 15:30 Appointment; JAZMINE SANCHEZ M.D. Encounter Diagnosis: Problem not documented On: 27-Sep-2019 14:00
--- OUTSIDE RECORDS SUMMARY | 2019-10-18 21:01 | XMS REPORT | Summary of Care ---
Author Author WEI SANCHEZ M.D. Organization Unknown Address Unknown Phone Unavailable Care Team Providers Care Laborer [employer] Maintenance Name Role Phone JAZMINE SANCHEZ M.D. Unavailable Unavailable DARYA AYALA, TOM Unavailable Unavailable JAZMINE SANCHEZ DO Unavailable Unavailable STEVEN ALARCON MD, MILAD Unavailable Unavailable Unavailable Unavailable Functional Status Name Dates Details Functional status health issues are not documented Status: Name Dates Details Cognitive status health issues are not d ocumented Status: Problems Name Dates Details Visit for gynecologic examination (V72.3 1, Z01.419) Status: Active (V22.2, Z34.90) Status: Active Nausea (787.02, R11.0) Status: Active UTI (urinary tract infection) (599.0, N3 9.0) Status: Active Medications Name Dates Details Vitamins TABS M.D. Active Vitamin D TABS * Refills: 0 M.D. Active Multiple Vitamins TABS * Refills: 0 M.D. Active Doxylamine-Pyridoxine 10-10 MG Oral Tablet Delayed Release TAKE 1 TABLET BY MOUTH DAILY NEEDED * Quantity: 30 Refills: 5 SANCHEZ M.D., LUCERO * Start : 27-Sep-2019 Active Nitrofurantoin Monohyd Macro 100 MG Oral Capsule TAKE 1 CAPSULE TWICE DAILY UNTIL GONE. * Quantity: 14 Refills: 0 SANCHEZ M.D., LUCERO * Start : 30-Sep-2019 Active Promethazine HCl - 25 MG Oral Tablet TAKE 1 TABLET EVERY 4 TO 6 HOURS NEEDED FOR NAUSEA. * Quantity: 30 Refills: 5 SANCHEZ M.D., LUCERO * Start : 02-Oct-2019 Active Allergies and Adverse Reactions Name Dates Details Bactrim (Allergy) Status: Active ibuprofen (Allergy) Status: Active Zithromax (Allergy) Status: Active Past Medical History Name Dates Details History of allergy (V15.09, Z88.9) Status: Resolved History of bronchitis (V12.69, Z87.09) Status: Resolved History of Kidney mass (593.9, N28.89) Status: Resolved Procedures Procedure Dates Details [Q] HEMOGLOBINOPATHY EVALUATION Date: 27-Sep-2019 . [facility] - PAP w/reflex [...] (finding) Vital Signs Date Test Result Details [id number] Systolic blood pressure 114 mm[Hg] Status: Comments : Location: RUE; Position: Sitting Diastolic blood pressure 73 mm[Hg] Status: Comment s: Location: [facility]UE; Position: Sitting Physical Findings 0 Status: Comments: Al cohol Screen - How many times in the [...] /min Status: Respiratory rate 16 /min Status: 66-Uvx-[id number]:18 Systolic blood pressure 116 mm[Hg] Status: Comments [...] [QL] HCG, TOTAL, QN [place] [address] {miU/ml} (Above high thre shold) Comments: Reference RangeNon or premenopausal <5Postmenopausal <10 Values from different assay methods may vary.The use of this assay to monitor or to diagnose patients with cancer or any condition unrelatedto has not been cleared or approved bythe FDA or the hog driver of the assay. :23 [QL] ANTIBODY SCREEN, [...] For a dditional information, please refer to http://education.Fannect.[employer]/faq/WLR307 (This link is being provided for informational/educational purposes only.) :40 [O] Urine Test (in office) Test, Urine POSITIVE Control Line Present? Yes (Normal) :52 [Q] OBSTETRIC PANEL W/FOURTH GENERATION HIV WHITE BLOOD CELL COUNT 9.4 {Thousand/u} (Normal ) Range: 3.8-10.8 RED BLOOD CELL COUNT 5.05 {Million/uL} (Normal) Range: 3.80-5.10 HEMOGLOBIN 13.6 g/dl (Normal) Range: 11.7- 15.5 HEMATOCRIT 42.3 % (Normal) Range: 35.0-45. 0 MCV 83.8 fL (Normal) Range: 80.0-10 0.0 MCH 26.9 pg (Below low threshold) R suleman: 27.0-33.0 MCHC 32.2 g/dl (Normal) Range: 32.0- 36.0 RDW 12.2 % (Normal) Range: 11.0-15. 0 PLATELET COUNT 326 {Thousand/u} (Normal) Range : 140-400 MPV 9.6 fL (Normal) Range: 7.5-12.5 ABSOLUTE NEUTROPHILS 7182 {cells/uL} (Normal) R suleman: 6069-8412 ABSOLUTE LYMPHOCYTES 1551 {cells/uL} (Normal) R suleman: 850-3900 ABSOLUTE MONOCYTES 592 {cells/uL} (Normal) Rang e: 200-950 ABSOLUTE EOSINOPHILS 56 {cells/uL} (Normal) Ran ge: 15-500 ABSOLUTE BASOPHILS 19 {cells/uL} (Normal) Range : 0-200 NEUTROPHILS 76.4 % (Normal) LYMPHOCYTES 16.5 % (Normal) MONOCYTES 6.3 % (Normal) EOSINOPHILS 0.6 % (Normal) BASOPHILS 0.2 % (Normal) ANTIBODY SCREEN, RBC W/REFL ID, TITER AN D AG NO ANTIBODIES DETECTED (Normal) Comments: Reference range No antibodies detected This assay is a screening test for the detection of red blood cell antibodies. The test is not to be used for pretransfusion screening or for the medical management of an alloimmunized . ABO GROUP A RH TYPE RH(D) POSITIVE Comments: For a dditional information, please refer to http://education.[employer]/faq/MLH553 (This link is being provided for informational/educational purposes only.) RPR (DX) W/REFL TITER AND CONFIRMATORY TESTING N ON-REACTIVE (Normal) Range: NON-REACTIVE HEPATITIS B SURFACE ANTIGEN NON-REACTIVE (Norm al) Range: NON-REACTIVE RUBELLA ANTIBODY (IGG) 10.30 {index} (Normal) C omments: Index Interpretation ----- <0.90 Not consistent with Immunity 0.90-0.99 Equivocal > or = 1.00 Consistent with Immunity The presence of rubella IgG antibody suggests immunization or past or current infection withrubella virus. HIV AG/AB, 4TH GEN NON-REACTIVE (Normal) Range : NON-REACTIVE Comments: HIV-1 antigen and HIV-1/HIV-2 antibodies were notdetected. There is no laboratory evidence of HIVinfection. PLEASE NOTE: This information has been disclosed toyou from records whose confidentiality may beprotected by state law. If your state requires suchprotection, then the state law prohibits you frommaking any further disclosure of the informationwithout the specific written consent of the personto whom it pertains, or as otherwise permitted by law.A general authorization for the release of medical orother information is NOT sufficient for this purpose. For additional information please refer t eSharesttp://education.Andela/faq/GOI540(This link is being provided for informational/educational purposes only.) The performance of this assay has not been clinicallyvalidated in patients less than 2 years old. :52 [Q] HEMOGLOBINOPATHY EVALUATION RED BLOOD CELL COUNT 4.70 {Million/uL} (Normal) Range: 3.80-5.10 HEMOGLOBIN 13.5 g/dl (Normal) Range: 11.7- 15.5 HEMATOCRIT 39.5 % (Normal) Range: 35.0-45. 0 MCV 84.0 fL (Normal) Range: 80.0-10 0.0 MCH 28.7 pg (Normal) Range: 27.0-33 .0 RDW 12.2 % (Normal) Range: 11.0-15. 0 HEMOGLOBIN A 97.9 % (Normal) Range: >96.0 HEMOGLOBIN F <1.0 % (Normal) Range: <2.0 HEMOGLOBIN A2 (QUANT) 2.1 % (Normal) Range: 1.8 -3.5 INTERPRETATION Comments: Normal phenotype. :52 [Q] SMA CARRIER SCREEN TECHNICAL RESULTS NEGATIVE Comments: NEGA TIVE; AT LEAST TWO COPIES OF THE SMN1 GENE DETECTED SMN1 2 COPIES SMN2 1 COPY INTERPRETATION SEE NOTE Comments: This a nalysis identified at least two (2) copies of the GPV5liqa. This result does not rule out carrier status or adiagnosis of spinal muscular atrophy (SMA).* This testingcannot differentiate between individuals who have all copiesof the SMN1 gene on one chromosome and NONE on the oppositechromosome as well as other mutations in the SMN1 gene. Therisk for mutations that cause SMA other than the deletionstested depends greatly on family history and clinicalpresentation. Risk to be a carrierEthnicity Detection Prior 2 SMN1 3 SMN1 rate carrier copy copy risk result result 95% 1 in 35 1 in 632 1 in 3500Ashkenazi 90% 1 in 41 1 in 350 1 in 4000JewishAsian 93% 1 in 53 1 in 628 1 in 5000African 71% 1 in 66 1 in 121 1 in 3000AmericanHispanic 91% 1 in 117 1 in 1061 1 in [address]004 SUPPLEMENTAL INFORMATIONSpinal muscular atrophy (SMA) is a family of disorders thatare characterized by progressive muscle weakness due to lossof anterior horn cells. A deletion of exon 7 in the ACN8zqml causes 95% of SMA. New mutations account forapproximately 2% of SMA. SMN2 genes are able to produce aprotein identical to that of the SMN1 gene, but at a reduced(10-20%) capacity. As a result the number of copies of RVZ7lxg been shown to influence the severity of the disease.This assay detects the copy number of the two common genes(SMN1 and SMN2) recommended by the [place] [employer] (ACMG) for population-based SMA carrierscreening. Health care providers, please contact your local [place]' genetic counselor or call [employer] at [employer] ([phone]) for assistance withthe interpretation of these results. METHODOLOGY:The copy number of the SMA genes (SMN1 and SMN2) is detectedby quantitative PCR. Although rare, false positive or falsenegative results may occur. All results should beinterpreted in context of clinical findings, relevanthistory, and other laboratory data. Laboratory results andsubmitted clinical information reviewed by Kit Rowell MD, MHA, FACMG, CGMBS. This test was developed and its analytical performancecharacteristics have been determined by [facility]. It has not beencleared or approved by FDA. This assay has been validatedpursuant to the CLIA regulations and is used for clinicalpurposes. [id number] [QL] URINALYSIS, COMPLETE COLOR DARK YELLOW (Normal) Range: YE LLOW APPEARANCE CLEAR (Normal) Range: CLEAR SPECIFIC GRAVITY 1.026 (Normal) Range: 1.001-1 .035 PH 8.0 (Normal) Range: 5.0-8.0 GLUCOSE NEGATIVE (Normal) Range: NEGAT STACY BILIRUBIN NEGATIVE (Normal) Range: NEGAT STACY KETONES NEGATIVE (Normal) Range: NEGAT STACY OCCULT BLOOD NEGATIVE (Normal) Range: NEGAT STACY PROTEIN NEGATIVE (Normal) Range: NEGAT STACY NITRITE NEGATIVE (Normal) Range: NEGAT STACY LEUKOCYTE ESTERASE NEGATIVE (Normal) Range: NE GATIVE WBC 0-5 {/HPF} (Normal) Range: < OR = 5 RBC 0-2 {/HPF} (Normal) Range: < OR = 2 SQUAMOUS EPITHELIAL CELLS 0-5 {/HPF} Range: < OR = 5 BACTERIA FEW {/HPF} (Abnormal) Range: NO NE SEEN HYALINE CAST NONE SEEN {/LPF} (Normal) Range : NONE SEEN :52 [Q] QBIFLYJ-4-EIFJPNESY DEHYDROGENASE, QUANT. UZWHZFS-7-BTUICABLK DEHYDROGENASE 20.2 {U/g_Hgb } Range: 7.0-20.5 :52 [QL] CYSTIC FIBROSIS SCREEN Comments: T he mutations are detected by multiplex-polymerase chainreaction (PCR) amplification of specific CF gene regions,followed by nucleotide sequence analysis on a massivelyparallel sequencing platform. Although rare, false positiveor false negative results may occur. All results should beinterpreted in the context of clinical findings, relevanthistory, and other laboratory data. ETHNICITY: B CF RESULT NEGATIVE Range: NEGATIVE Comments: NEGATIVE; NONE OF THE MUTATIONS LISTED BELOW WERE DETECTED INTERPRETATION SEE NOTE Comments: This r esult does not rule out the presence of a mutation ora diagnosis of cystic fibrosis disease (CF). The risk formutations that cause CF other than the ones tested dependsgreatly on family history, clinical presentation, andethnicity. Chance of Having a CF Mutation Ethnic Group Detection Before After Negative Rate Test Result Ashkenazi Gnosticism 94% 1 in 24 1 in 400Non- 88% 1 in 25 1 in 208CaucasianHispanic-Trinidadian 72% 1 in 46 1 in 164African-Trinidadian 65% 1 in 65 1 in 186Asian-Trinidadian 49% 1 in 94 1 in 184Other insufficient data available Health care providers, please contact your local F[place]' genetic counselor or call [employer] at [employer] ([phone]) for assistance withinterpretation of these results. MUTATIONS/POLYMORPHISMS SEE NOTE Comments : MUTATIONS ANALYZED: G85E (c.254G>A) S549N (c.1646G>A)394delTT (c.262delTT) G551D (c.1652G>A)R117H (c.350G>A) R553X (c.1657C>T)621+1 G>T (c.489+1G>T) R560T (c.1679G>C)711+1 G>T (c.579+1G>T) 1898+1 G>A (c.1766+1G>A)1078delT (c.948delT) 2183AA>G (c.2051delAAinsG)R334W (c.1000C>T) 2184delA (c.2052delA)R347H (c.1040G>A) 2789+5 G>A (c.2657+5G>A)R347P (c.1040G>C) 3120+1 G>A (c.2988+1G>A)A455E (c.1364C>A) Q0016I (c.3484C>T)O013gew (c.1519delATC) 3659delC (c.3528delC)S424mic (c.1521delCTT) 3849+10kb C>T (c.3717+36616R>T)V520F (c.1558G>T) 3876delA (c.3744delA)1717-1 G>A (c.1585-1G>A) 3905insT (c.3773insT)G542X (c.1624G>T) G7590S (c.3846G>A)S549R (c.1645A>C or c.1647T>G) S1412O (c.3909C>G) This assay detects thirty-two mutations, including thetwenty-three core mutations recommended by the AmericanCollege of Medical Genetics (ACMG) and the [place] Congressof Obstetricians and Gynecologists (ACOG) forpopulation-based CF carrier screening. In addition to theACMG/ACOG panel, this assay detects nine additionalmutations. While these mutations are rare in the [place]population, the scientific and medical literature indicatesthat these mutations are not benign polymorphisms. Thestatus of the intron 9 (formerly intron 8) polyT tract isreported only when the R117H mutation is detected. METHOD SEE NOTE Comments: The mu tations are detected by multiplex-polymerase chainreaction (PCR) amplification of specific CF gene regions,followed by nucleotide sequence analysis on a massivelyparallel sequencing platform. Alth ough rare, false positiveor false negative results may occur. All results should beinterpreted in the context of clinical findings, relevanthistory, and other laboratory data. REVIEWER SEE NOTE Comments: Kristin heaton results and submitted clinical informationreviewed by Mariano Patel, Ph.D., [facility] [place], [facility]. For additional information, please refer tohttp://education.Andela/faq/cfscreen(T his link is being provided for informational/educationalpurposes only.) This test was developed and its analytical performancecharacteristics have been determined by [facility]. It has not beencleared or approved by FDA. This assay has been validatedpursuant to the CLIA regulations and is used for clinicalpurposes. [id number] [QL] CULTURE, URINE, ROUTINE CULTURE (Abnormal) Comments: CULTUR E, URINE, ROUTINE Micro Number: [id number] Test Status: Final Specimen Source: URINE Specimen Quality: Adequate Result: 10,000-50,000 CFU/mL of Escherichia coli Upon further incubation: Three or more organisms present, each greater than 10,000 CFU/mL. May represent normal kelsi contamination from external genitalia. No further testing is required. E.coli INT ZAYRA AMOX/CLAVULANATE S <=2 AMPICILLIN S 4 AMP/SULBACTAM S <=2 CEFAZOLIN NR <=4 2 CEFEPIME S <=1 CEFTRIAXONE S <=1 CIPROFLOXACIN S <=0.25 GENTAMICIN S <=1 IMIPENEM S <=0.25 LEVOFLOXACIN S <=0.12 NITROFURANTOIN S <=16 PIP/TAZOBACTAM S <=4 TOBRAMYCIN S <=1 TRIMETHOPRIM/SULFA S <=20S=Susceptible I=Intermediate R=Resistant * = Not TestedNR = Not Reported NN = See Therapy CommentsTHERAPY COMMENTS Note 1: For infections other than uncomplicated UTI caused by E. coli, K. pneumoniae or P. mirabilis: Cefazolin is resistant if ZAYRA > or = 8 mcg/mL. (Distinguishing susceptible versus intermediate for isolates with ZAYRA < or = 4 mcg/mL requires additional testing.) Note 2: For uncomplicated UTI caused by E. coli, K. pneumoniae or P. mirabilis: Cefazolin is susceptible if ZAYRA <32 mcg/mL and predicts susceptible to the oral agents cefaclor, cefdinir, cefpodoxime, cefprozil, cefuroxime, cephalexin and loracarbef. Plan of Care Name Dates Details Planned Observations Planned Goals not documented Planned Encounters Appointment; JAZMINE SANCHEZ M.D. On: 25-Oct-2019 13:30 Instructions Name Dates Details Instructions not documented Encounters Appointment; JAZMINE SANCHEZ M.D. Encounter Diagnosis: Problem not documented On: 10-Sep-2019 13:00 Appointment; JAZMINE SANCHEZ M.D. Encounter Diagnosis: Problem not documented On: 24-Sep-2019 9:45 Appointment; [facility], 1 Encounter Diagnosis: Problem not documented On: 24-Sep-2019 15:30 Appointment; JAZMINE SANCHEZ M.D. Encounter Diagnosis: Problem not documented On: 27-Sep-2019 14:00
--- OUTSIDE RECORDS SUMMARY | 2019-10-18 21:01 | XMS REPORT | Summary of Care ---
Author Author WEI Shoemaker LVN Organization Unknown Address [facility] Phone Unavailable Care Team Providers Care Procedures Analyst Name Role Phone JAZMINE SANCHEZ M.D. Unavailable Unavailable TOM IVORY MD Unavailable Unavailable JAZMINE SANCHEZ DO Unavailable Unavailable Unavailable Unavailable Functional Status Name Dates Details Functional status health issues are not documented Status: Name Dates Details Cognitive status health issues are not d ocumented Status: Problems Name Dates Details Visit for gynecologic examination (V72.3 1, Z01.419) Status: Active (V22.2, Z34.90) Status: Active Medications Name Dates Details Vitamins TABS Active Vitamin D TABS * Refills: 0 Active Multiple Vitamins TABS * Refills: 0 Active Allergies and Adverse Reactions Name Dates Details Bactrim (Allergy) Status: Active ibuprofen (Allergy) Status: Active Zithromax (Allergy) Status: Active Past Medical History Name Dates Details History of allergy (V15.09, Z88.9) Status: Resolved History of bronchitis (V12.69, Z87.09) Status: Resolved History of Kidney mass (593.9, N28.89) Status: Resolved Procedures Procedure Dates Details [QL] ABO GROUP AND RH TYPE Date: 10-Sep-2019 [QL] ANTIBODY SCREEN, RBC W/REFL ID, TITER AND AG Date: [QL] HCG, TOTAL, QN Date: 10-Sep-2019 History of Appendectomy Completed Immunization Name Dates [...] Status: Active Social History Name Dates Details Tobacco smoking consumption unknown (finding) Vital Signs Date Test Result Details [id number] Systolic blood pressure 116 mm[Hg] Status: Comments [...] Status: Comments: Lo cation: L Brachial Artery; Quality: Normal Respiratory rate 16 /min Status: Comments: Qu ality: Normal O2 SAT 100 % Status: Comments: So urce: RA Results Date Description Value Details Results not documented Plan of Care Name Dates Details Planned Observations Planned Goals not documented Planned Encounters Appointment; JAZMINE SANCHEZ M.D. On: 24-Sep-2019 9:45 Interventions Provided Labs/Procedures/Imaging* [QL] ABO GROUP AND RH TYPE; To Be Done: 10 Sep 2019 * [QL] ANTIBODY SCREEN, RBC W/REFL ID, TITER AND AG; To Be Done: 10 Sep 2019 * [QL] HCG, TOTAL, QN; To Be Done: 10 Sep 2019 Discussion/Summary* 29 yo at 5w6d here for followup * bhcg on September 06 was 4800 - repeat bhcg done today * type and screen done today * viabiloity sono ordered in 2 weeks * strict bleeding, SAB, ectopic precautions given. Pt is asymptomatic now. * rtc in 2 weeks for followup on ultrasound. * Jazmine Sanchez MD. Instructions Name Dates Details Instructions not documented Encounters Appointment; JAZMINE SANCHEZ M.D. Encounter Diagnosis: Problem not documented On: 10-Sep-2019 13:00
--- OUTSIDE RECORDS SUMMARY | 2019-10-18 21:01 | XMS REPORT | Summary of Care ---
Author Author WEI Cervantes M.A. Organization Unknown Address [facility] Phone Unavailable Care Team Providers Care Polymer Specialist Name Role Phone Aldo Cervantes M.A. Unavailable Unavailable DARYA VILLALOBOS ORTOM Unavailable Unavailable SANCHEZ DO, LUCERO Unavailable Unavailable Unavailable Unavailable Functional Status Name [...] N28.89) Status: Resolved Procedures Procedure Dates Details History of Appendectomy Completed Immunization Name Dates [...] (finding) Vital Signs Date Test Result Details [id number]-[id number] Systolic blood pressure 116 mm[Hg] Status: Comments : Location: E; Position: Sitting Diastolic blood pressure 75 mm[Hg] Status: Comment s: Location: [facility] [place]; Position: Sitting Body height 62 in Status: [...] urce: RA Results Date Description Value Details [id number]:40 [O] Urine Test (in office) Test, Urine POSITIVE Control Line Present? Yes (Normal) Plan of Care Name Dates Details Planned Observations Planned Goals not documented Planned Encounters Appointment; JAZMINE SANCHEZ M.D. On: 24-Sep-2019 9:45 Instructions Name Dates Details Instructions not documented Encounters Appointment; JAZMINE SANCHEZ M.D. Encounter Diagnosis: Problem not documented On: 10-Sep-2019 13:00
--- OUTSIDE RECORDS SUMMARY | 2019-10-18 21:01 | XMS REPORT | Summary of Care ---
Author WEI Darling M.D. Organization Unknown Address Unknown Phone Unavailable Care Team Providers Care District Court Bailiff Name Role Phone JAZMINE SANCHEZ M.D. Unavailable [...] Dates Details [Q] HEMOGLOBINOPATHY EVALUATION Date: 27-Sep-2019 [QL] CYSTIC FIBROSIS SCREEN Date: 27-Sep-2019 . [facility] - PAP [...] (finding) Vital Signs Date Test Result Details [id number]-[id number]:14 Systolic blood pressure 114 mm[Hg] Status: Comments [...] /min Status: Respiratory rate 16 /min Status: [id number]:18 Systolic blood pressure 116 mm[Hg] Status: Comments : Location: [facility]; Position: Sitting Diastolic blood pressure 75 mm[Hg] [...] [QL] HCG, TOTAL, QN [place] [address] {miU/ml} (Above high thre shold) Comments: Reference RangeNon or premenopausal <5Postmenopausal <10 Values from different assay methods may vary.The use of this assay to monitor or to diagnose patients with cancer or any condition unrelatedto has not been cleared or approved bythe FDA or the care specialist of the assay. :23 [QL] ANTIBODY [...] For a dditional information, please refer to http://education.Listen Edition/faq/CNA082 (This link is being provided for informational/educational [...] ABSOLUTE NEUTROPHILS 7182 {cells/uL} (Normal) R suleman: [id number] ABSOLUTE LYMPHOCYTES 1551 {cells/uL} (Normal) R suleman: [...] For a dditional information, please refer to http://education.Listen Edition/faq/MBN967 (This link is being provided for informational/educational [...] purpose. For additional information please refer t Catarizmttp://education.Oh [employer]es/faq/XBL980(This link is being provided for informational/educational purposes [...] at least two (2) copies of the YGK3munf. This result does not rule out carrier [...] in 117 1 in 1061 1 in 41996 SUPPLEMENTAL INFORMATIONSpinal muscular atrophy (SMA) is a family of disorders thatare characterized by progressive muscle weakness due to lossof anterior horn cells. A deletion of exon 7 in the ACJ2jicl causes 95% of SMA. New mutations account forapproximately 2% of SMA. SMN2 genes are able to produce aprotein identical to that of the SMN1 gene, but at a reduced(10-20%) capacity. As a result the number of copies of SKA4kbj been shown to influence the severity of the disease.This assay detects the copy number of the two common genes(SMN1 and SMN2) recommended by the [place] [employer] (ACMG) for population-based SMA carrierscreening. Health care providers, please contact your local [place]' genetic counselor or call [employer] at [employer] ([phone]) for assistance withthe interpretation of these results. [...] its analytical performancecharacteristics have been determined by [facility]. It has not beencleared or approved by FDA. This assay has been validatedpursuant to the CLIA regulations and is used for clinicalpurposes. [id number] [QL] URINALYSIS, COMPLETE COLOR DARK YELLOW (Normal) [...] (Normal) Range : NONE SEEN :52 [Q] QXOEMSJ-0-FNSLVDCYS DEHYDROGENASE, QUANT. AFQVUTK-1-LYHAXEQFG DEHYDROGENASE 20.2 {U/g_Hgb } Range: 7.0-20.5 :52 [QL] CULTURE, URINE, ROUTINE CULTURE (Abnormal) Comments: CULTUR E, URINE, ROUTINE Micro Number: [id number] Test Status: Final Specimen Source: URINE Specimen [...] Planned Encounters Appointment; JAZMINE SANCHEZ M.D. On: 04-Oct-2019 11:00 Appointment; JAZMINE SANCHEZ M.D. On: 25-Oct-2019 13:30 [...]
--- OUTSIDE RECORDS SUMMARY | 2019-10-18 21:01 | XMS REPORT | Summary of Care ---
Author WEI Darling M.D. Organization Unknown Address Unknown Phone Unavailable Care Team Providers Care Nurse Midwife Name Role Phone JAZMINE SANCHEZ M.D. Unavailable [...] GONE. * Quantity: 14 Refills: 0 SANCHEZ EvelyneD., LUCERO * Start : 30-Sep-2019 Active Allergies and Adverse Reactions Name Dates Details Bactrim (Allergy) Status: Active ibuprofen (Allergy) Status: Active Zithromax (Allergy) Status: Active Past Medical History Name Dates Details History of allergy (V15.09, Z88.9) Status: Resolved History of bronchitis (V12.69, Z87.09) Status: Resolved History of Kidney mass (593.9, N28.89) Status: Resolved Procedures Procedure Dates Details [Q] OBSTETRIC PANEL W/FOURTH GENERATION HIV Date: 0 [Q] HEMOGLOBINOPATHY EVALUATION Date: 27-Sep-2019 [Q] [id number] DEHYDROGENASE, QUANT. Date: 2019 [QL] CYSTIC FIBROSIS [...] (finding) Vital Signs Date Test Result Details [id number] Systolic blood pressure 114 mm[Hg] Status: Comments [...] tatus: Body temperature 98.4 f Status: Comments: thod: Temporal Heart Rate 90 /min Status: Respiratory rate 16 /min Status: [id number] Systolic blood pressure 116 mm[Hg] Status: Comments [...] Temporal Heart Rate 89 /min Status: Comments: Chio cation: L Brachial Artery; Respiratory rate 16 /min Status: O2 SAT 100 % Status: Comments: So urce: RA Results Date Description Value Details :23 [QL] HCG, TOTAL, Q[place], [place] [address] {miU/ml} (Above high thre shold) Comments: Reference RangeNon or premenopausal <5Postmenopausal <10 Values from different assay methods may vary.The use of this assay to monitor or to diagnose patients with cancer or any condition unrelatedto has not been cleared or approved bythe FDA or the railway signal operator of the assay. :23 [QL] ANTIBODY SCREEN, [...] For a dditional information, please refer to http://education.[employer].com.Loopport/faq/ZCC934 (This link is being provided for informational/educational [...] ABSOLUTE NEUTROPHILS 7182 {cells/uL} (Normal) R suleman: [id number] ABSOLUTE LYMPHOCYTES 1551 {cells/uL} (Normal) R suleman: [phone] ABSOLUTE MONOCYTES 592 {cells/uL} (Normal) Rang e: 200-950 ABSOLUTE EOSINOPHILS 56 {cells/uL} (Normal) Ran ge: 15-500 ABSOLUTE BASOPHILS 19 {cells/uL} (Normal) Range : 0-200 NEUTROPHILS 76.4 % (Normal) LYMPHOCYTES 16.5 % (Normal) MONOCYTES 6.3 % (Normal) EOSINOPHILS 0.6 % (Normal) BASOPHILS 0.2 % (Normal) ANTIBODY SCREEN, RBC W/REFL ID, TITER AND AG NO ANTIBODIES DETECTED (Normal) Comments: Reference range No antibodies detected This assay is a screening test for the detection of red blood cell antibodies. The test is not to be used for pretransfusion screening or for the medical management of an alloimmunized . ABO GROUP A RH TYPE RH(D) POSITIVE Comments: For ad ditional information, please refer to http://education.[employer].com.Loopport/faq/AZQ171 (This link is being provided for informational/educational purposes only.) HEPATITIS B SURFACE ANTIGEN NON-REACTIVE (Svetlana l) Range: NON-REACTIVE RUBELLA ANTIBODY (IGG) 10.30 {index} (Normal) C omments: Index Interpretation ----- <0.90 Not consistent with Immunity 0.90-0.99 Equivocal > or = 1.00 Consistent with Immunity The presence of rubella IgG antibody suggests immunization or past or current infection withrubella virus. [id number]:52 [Q] HEMOGLOBINOPATHY EVALUATION RED BLOOD CELL COUNT 4.70 {Million/uL} (Normal) Range: 3.80-5.10 HEMOGLOBIN 13.5 g/dl (Normal) Range: 11.7- 15.5 HEMATOCRIT 39.5 % (Normal) Range: 35.0-45. 0 MCV 84.0 fL (Normal) Range: 80.0-10 0.0 MCH 28.7 pg (Normal) Range: 27.0-33 .0 RDW 12.2 % (Normal) Range: 11.0-15. 0 :52 [QL] URINALYSIS, COMPLETE COLOR DARK YELLOW (Normal) [...] {/LPF} (Normal) Range : NONE SEEN :52 [QL] CULTURE, URINE, ROUTINE CULTURE (Abnormal) Comments: CULTUR E, URINE, ROUTINE Micro Number: [id number] Test Status: Final Specimen Source: URINE Specimen [...] Oral Tablet Delayed Release - Start Labs/Procedures/Imaging* [QL] URINALYSIS, COMPLETE; Done: 27 Sep 2019 * Tobacco Use Screening; Done: 27 Sep 2019 Instructions Name Dates Details Instructions not documented Encounters Appointment; JAZMINE SANCHEZ M.D. Encounter Diagnosis: Problem not documented On: 10-Sep-2019 13:00 Appointment; JAZMINE SANCHEZ M.D. Encounter Diagnosis: Problem not documented On: 24-Sep-2019 9:45 Appointment; [facility] Encounter Diagnosis: Problem not documented On: 24-Sep-2019 15:30 Appointment; JAZMINE SANCHEZ M.D. Encounter Diagnosis: Problem not documented On: 27-Sep-2019 14:00
--- OUTSIDE RECORDS SUMMARY | 2019-10-18 21:01 | XMS REPORT | Continuity of Care Document ---
Author Author [facility] t Organization [facility] Address [facility] [place] [address] Phone Unavailable Care Team Providers Care Civil Engineering Drafter Name Role Phone NONSTAFF PCP Unavailable Oscar WICK Attphys Unavailable JAZMINE SANCHEZ M.D. Attphys Unavailable [facility] Attphys Unavailable Rama Adams MD Attphys ELO PADRON Attphys Unavailable DR Barbara GRANT Attphys Unavailable Sidney LACY Attphys Unavailable JAE ERVIN Attphys Unavailable ADDIE WHITE Attphys Unavailable CRUZ KANG Attphys Unavailable HENNA FARFAN Attphys Unavailabl DR Barbara Crowleyphygerry Unavailable HENNA FARFANphygerry Unavaildulce maria e Payers Payer Name Policy Type Policy Number Effective Date Expiration Date S lisa [facility] [id number] 2019 [facility] [id number] xxxxxxxxx 2015 00:00:00 [place] [facility] Problems Condition Name Condition Details Condition Category Status Onset Date Resolution Date Last Treatment Date Treating Clinician Comments Source Migraine Migraine Disease Active 2017-09-25 00:00:00 [facility] 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-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 [facility] Abdominal pain during Problem Active [facility] History of allergy History of allergy Problem Resolved [facility] History of bronchitis History of bronchitis Problem Resolved [facility] History of Kidney mass History of Kidney mass Problem Resolved [facility] Visit for gynecologic examination Visit for gynecologic examinat ion Problem Active [facility] Problem Active [facility] Nausea Nausea Problem Active [facility] UTI (urinary tract infection) UTI (urinary tract infection) Problem Active [facility] Allergies, Adverse Reactions, Alerts Allergy Name Allergy Type Status Severity Reaction(s) Onset Date Inacti ve Date Treating Clinician Comments Source Azithromycin Allergy to substance Active CHEST TIGHTNESS 2019-06-06 00:00:00 [facility] Azithromycin Propensity to adverse reactions to drug Active 2018-09-21 00:00:00 States makes chest feel "tihgt" Onel Macias Azithromycin Propensity to adverse reactions Active 201 11-24-01 00:00:00 [facility] Ibuprofen Allergy to substance Active 2018-02-15 00:00:00 [facility] Sulfamethoxazole Allergy to substance Active 2018-02-15 00: 00:00 [facility] Trimethoprim Allergy to substance Active 2018-02-15 00:00:0 0 [facility] Metronidazole Propensity to adverse reactions Active 05-02-16 00:00:00 Hives, sob [facility] Sulfamethoxazole-Trimethoprim Propensity to adverse reactions Active 2018-02-01 00:00:00 [facility] Egg Propensity to adverse reactions to drug Active 2017-10-31 00:00:00 Onel Macias Qpg-Ucmcombqftuqy-Ketl-Buffers Propensity to adverse reactions to d rug Active 2017-09-17 00:00:00 Mando garcia Sulfamethoxazole-Trimethoprim Propensity to adverse reactions to dr rollins Active 2017-09-17 00:00:00 Mando garcia Ibuprofen Propensity to adverse reactions to drug Active 2017-09-17 00:00:00 [facility] Sulfamethoxazole-Trimethoprim Propensity to adverse reactions to dr rollins Active Swelling 2017-09-13 00:00:00 Onel Macias Ibuprofen Propensity to adverse reactions Active 08-26 00:00:00 Lip swelling [facility] Ibuprofen Propensity to adverse reactions to drug Active 2017-08-26 00:00:00 Lip swelling Onel romeo Bactrim Allergy to drug (finding) Active [facility] ibuprofen Allergy to drug (finding) Active [facility] Zithromax Allergy to drug (finding) Active [facility] Family History Family Member Diagnosis Comments Start Date Stop Date Source Grandmother Family history of hypertension [facility] Grandmother Family history of thyroid disease [facility] Grandmother Family history of diabetes mellitus [facility] aunt Family history of thyroid disease [facility] Father Family history of hypertension [facility] Father Family history of thyroid disease [facility] Social History Social Habit Start Date Stop Date Quantity Comments Source Sex Assigned At [facility] Alcohol intake 2019-07-20 00:00:00 2019-07-20 00:00:00 Current non-drinker of alcohol (finding) Onel Macias Alcohol Comment 2016-04-22 00:00:00 2016-04-22 00:00:00 rare [facility] Smoking Status Start Date Stop Date Source Never smoker Onel romeo Medications Ordered Medication Name Filled Medication Name Start Date Stop Da te Current Medication? Ordering Clinician Indication Dosage Frequency Signature (SIG) Comments Components Source Promethazine HCl - 25 MG Oral Tablet Promethazine HCl - 25 M G Oral Tablet 2019-10-02 00:00:00 Yes JAZMINE SANCHEZ M.D. TAKE 1 TABLET EVERY 4 TO 6 HOURS NEEDED FOR NAUSEA. [facility] Nitrofurantoin Monohyd Macro 100 MG Oral Capsule Nitro furantoin Monohyd Macro 100 MG Oral Capsule 2019-09-30 00:00:00 Yes JAZMINE SANCHEZ M.D. Q0.5D TAKE 1 CAPSULE TWICE DAILY UNTIL GONE. [facility] Doxylamine-Pyridoxine 10-10 MG Oral Tablet Delayed Rel ease Doxylamine-Pyridoxine 10-10 MG Oral Tablet Delayed Release 2019-09-27 00:00:00 Yes Nelson SANCHEZ M.D. TAKE 1 TABLET BY MOUTH DAILY NEEDED [facility] traMADoL (ULTRAM) 50 mg tablet 2019-07-20 00:00:00 2019-07-19 2 23:59:00 No acute pain 50mg Q6H Take 1 tablet (50 mg total) by mouth every 6 (six) hours as needed for moderate pain for up to 10 days .acute pain. Onel Macias Cephalexin Monohydrate (Keflex) 500 Mg CAPSULE Cephale issac Monohydrate (Keflex) 500 Mg CAPSULE 2019-06-17 21:52:00 Yes 500 Every 6 H ours [facility] Dicyclomine Hcl (Bentyl) 10 Mg/1 Ml AMPUL Dicyclomine Hcl (Bentyl) 10 Mg/1 Ml AMPUL 2019-06-06 20:57:00 Yes 10 Four Times Daily f or Pain [facility] Famotidine (Pepcid) 20 Mg TABLET Famotidine (Pepcid) 20 Mg T ABLET 2019-06-06 20:57:00 Yes 20 Twice A Day [facility] albuterol (ACCUNEB) 2.5 mg /3 mL (0.083 %) nebulizer solutio n 2018-09-21 00:00:00 2018-10-21 23:59:00 No 2.5mg Q6H Take 3 mL (2.5 mg total) by nebulization every 6 (six) hours as needed for wheezing for up to 30 days. Onel Macias albuterol HFA (VENTOLIN HFA) 90 mcg/actuation inhaler 2018-09-18 00:00:00 2019-09-18 23:59:00 No 2{puff} Inhal e 2 puffs by mouth via inhaler every 4 (four) hours as needed for Wheezing. [facility] metoclopramide (REGLAN) 10 mg tablet 2017-09-25 00:00:00 Yes Migraine without status migrainosus, not intractable, unspecified migraine type 10mg Take 1 tablet by mouth 3 times daily as needed for Other (headache). [facility] cetirizine (ZYRTEC) 10 mg tablet 2017-09-17 00:00:00 Yes Allergic reaction, initial encounter 10mg QD Take 1 tablet by mouth daily. [facility] albuterol HFA (VENTOLIN HFA) 90 mcg/actuation inhaler 2017-02-21 00:06:30 Yes 1{puff} Inhale 1 puff b y mouth via inhaler every 6 (six) hours as needed for Wheezing. [facility] fluticasone (FLONASE) 50 mcg/actuation nasal spray 2017-02 00:06:30 Yes 1{spray} QD 1 spray by Nasal route daily. [facility] benzonatate (TESSALON) 100 MG capsule 2017-02-21 00:06:30 Y es 100mg Take 100 mg by mouth 3 (three) times daily as needed for Cough. [facility] B-complex with vitamin C tablet 2017-02-21 00:06:30 Yes 1{tbl} QD Take 1 tablet by mouth daily. [facility] cetirizine (ZYRTEC) 10 MG tablet 2017-02-21 00:06:30 Yes 10mg QD Take 10 mg by mouth daily. [facility] inhalational spacing device (AEROCHAMBER) Spcr 2017-02-21 00:00: 00 Yes For use with albuterol inhaler. [facility] cholecalciferol, vitamin D3, 50,000 unit Tab 2016-04-22 10:36:27 Yes 15207E Q7D Take 50,000 Units by mouth once a week. [facility] levonorgestrel-ethinyl estradiol (NORDETTE) 0.15-0.03 mg per tablet 2016-04-22 10:35:41 Yes 1{tbl} QD Take 1 tablet by mouth daily. [facility] methylPREDNISolone (MEDROL) 4 MG tablet 2016-04-20 00:00:00 Yes 4mg Q.[id number] Take 4 mg by mouth 3 (three) times daily. [facility] Vitamins TABS Vitamins TABS Yes M.Charisma [facility] Vitamin D TABS Vitamin D TABS Yes [facility] Multiple Vitamins TABS Multiple Vitamins TABS Yes Alia.Charisma [facility] Vital Signs Vital Name Observation Time Observation Value Comments Source Body Temperature 2019-10-17 22:17:00 100.1 [degF] [facility] Weight 2019-10-17 20:55:00 214 [lb_av] [facility] BMI (Body Mass Index) 2019-10-17 20:55:00 39.1 kg/m2 [facility] Systolic blood pressure 2019-09-27 14:14:00 114 mm[Hg] Loca tion: RUE; Position: Sitting [facility] Diastolic blood pressure 2019-09-27 14:14:00 73 mm[Hg] Loc ation: RUE; Position: Sitting [facility] Body height 2019-09-27 14:14:00 62 [in_us] [facility] Weight 2019-09-27 14:14:00 215 [lb_av] [facility] Body mass index (BMI) [Ratio] 2019-09-27 14:14:00 39.32 kg/m2 [facility] Body temperature 2019-09-27 14:14:00 98.4 [degF] Method: [facility] Heart Rate 2019-09-27 14:14:00 90 /min [facility] Respiratory rate 2019-09-27 14:14:00 16 /min [facility] Systolic blood pressure 2019-09-10 13:18:00 116 mm[Hg] Loca tion: LUE; Position: Sitting [facility] Diastolic blood pressure 2019-09-10 13:18:00 75 mm[Hg] Loc ation: LUE; Position: Sitting [facility] Body height 2019-09-10 13:18:00 62 [in_us] [facility] Weight 2019-09-10 13:18:00 215.5 [lb_av] [facility] Body mass index (BMI) [Ratio] 2019-09-10 13:18:00 39.42 kg/m2 [facility] Body temperature 2019-09-10 13:18:00 98.2 [degF] Method: [facility] Heart Rate 2019-09-10 13:18:00 89 /min Location: L Brachial Artery; [facility] Respiratory rate 2019-09-10 13:18:00 16 /min Quality: Normal [facility] O2 SAT 2019-09-10 13:18:00 100 % Source: [facility] Systolic blood pressure 2019-07-20 23:05:00 116 mm[Hg] Onel Macias Diastolic blood pressure 2019-07-20 23:05:00 74 mm[Hg] Onel Macias Heart rate 2019-07-20 23:05:00 72 /min Onel Macias Body temperature 2019-07-20 23:05:00 37.11 [facility]am [place] [facility] Respiratory rate 2019-07-20 23:05:00 16 /min [place] [facility] Oxygen saturation in Arterial blood by Pulse oximetry 07-19 23:05:00 100 /min Onel Macias Body height 2019-07-20 21:53:00 157.5 cm Onel Macias Body weight 2019-07-20 21:53:00 90.719 kg Onel Macias BMI 2019-07-20 21:53:00 36.58 kg/m2 Onel Macias Procedures Procedure Date / Time Performed Performing Clinician Sour e [Q] OBSTETRIC PANEL W/FOURTH GENERATION HIV 2019-09-27 00:00:00 [facility] [QL] CULTURE, URINE, ROUTINE 2019-09-27 00:00:00 [facility] [QL] URINALYSIS, COMPLETE 2019-09-27 00:00[facility] [[facility]] HEMOGLOBINOPATHY EVALUATION 2019-09-27 00:00:00 [facility] [Q] [id number] DEHYDROGENASE, QUANT. 2019-09-27 00:00: 00 [facility] [QL] CYSTIC FIBROSIS SCREEN 2019-09-27 00:00:00 [facility] [Q] SMA CARRIER SCREEN 2019-09-27 00:00:00 [facility] . [facility] - PAP w/reflex HPV if ASC-US or above 2019-09-27 00:00: 00 [facility] [QL] ABO GROUP AND RH TYPE 2019-09-10 00:00:00 [facility] [QL] ANTIBODY SCREEN, RBC W/REFL ID, TITER AND AG 2019-09-10 00: 00:00 [facility] [QL] HCG, TOTAL, QN 2019-09-10 00:00:00 [facility] URINALYSIS 2019-07-20 22:00:00 Jesse Adams ethodist HCG QUALITATIVE, URINE SCREEN 2019-07-20 22:00:00 Neri Adams XR CHEST 2 VW 2019-07-20 21:59:34 Jesse Adams HC COMPLETE BLD COUNT W/AUTO DIFF 2019-07-20 21:58:00 Oscar Adams COMPREHENSIVE METABOLIC PANEL 2019-07-20 21:58:00 Neri Adams TROPONIN, I-STAT 2019-07-20 21:58:00 Jesse Adams B NATRIURETIC PEPTIDE 2019-07-20 21:58:00 Jesse Adams stoajith Macias ESTIMATED GFR 2019-07-20 21:58:00 Jesse Adams ECG 12-LEAD 2019-07-20 21:48:41 Jesse Adams NJX AA&/STRD TRIGEMINAL NRV 2019-02-09 00:00:00 [facility] History of Appendectomy [facility] Plan of Care Planned Activity Planned Date Details Comments Source Future Scheduled Test 2019-12-19 00:00:00 IMM Influenza Seas onal Dec to May (>/= 19 yrs) [code = IMM Influenza Seasonal Dec to May (>/= 19 yrs)] [facility] Scheduled Test 2019-10-19 00:00:00 INFLUENZA VACCINE [code = INFLUENZA VACCINE] [facility] Scheduled Test 2011 00:00:00 Screening for gela gnant neoplasm of cervix (procedure) [code = 632189351] [facility] Scheduled Test 2011 00:00:00 Screening for gela gnant neoplasm of cervix (procedure) [code = 297025720] [facility] 2019-10-25 13:30:00 Ahmet LUCERO [facility] Instructions [facility] Encounters Start Date/Time End Date/Time Encounter Type Admission Type Attendi [facility] Care Department Encounter ID Source 2019-10-17 20:59:00 2019-10-17 20:59:00 Registered Emergency Room 1 DANIEL WICK [facility] [id number] [facility] [place] 2019-09-27 14:00:00 2019-09-27 14:00:00 Appointment; JAZMINE SANCHEZ M. D. NGUYEN, HA, M.D. [facility] Ob[facility]etrics and Gyne[facility] [id number] [facility] 2019-09-24 15:30:00 2019-09-24 15:30:00 Appointment; MFM-SL, RM1 MFM-SL, RM1 [facility] [id number] [facility] 2019-09-24 09:45:00 2019-09-24 09:45:00 Appointment; JAZMINE SANCHEZ M. D. NGUYEN, HA, M.D. [facility] [id number] [facility] 2019-09-10 13:00:00 2019-09-10 13:00:00 Appointment; JAZMINE SANCHEZ M. D. NGUYEN, HA, M.D. [facility] 3 [id number] [facility] 2019-09-07 20:21:00 2019-09-07 20:21:00 Emergency E [facility]NW [facility] 7503 NW 2019-08-11 20:51:00 2019-08-11 20:51:00 Emergency E [facility]NW [facility]NW 0145 [facility] 2019-07-20 00:00:00 2019-07-20 00:00:00 Emergency NERI ADAMS [facility] 064 [id number] [facility] 2019-06-17 21:32:00 2019-06-17 22:00:00 Departed Emergency Room [facility] [id number] [facility] 2019-06-06 19:32:00 2019-06-06 21:10:00 Departed Emergency Room [facility] [id number] [facility] 2019-03-29 23:34:00 2019-03-30 01:20:00 Departed Emergency Room [facility] [id number] [facility] 2019-02-09 17:57:00 2019-02-09 19:59:00 Departed Emergency Room [facility] [id number] [facility] 2018-06-01 15:41:00 2018-06-01 16:16:00 Emergency E [facility] [id number] [facility] 2018-02-15 22:43:00 2018-02-16 00:19:00 Departed Emergency Room 1 AMANDA LACY [facility] [id number] [facility] 2017-09-25 20:20:05 2017-09-25 20:20:05 Emergency [facility] [id number] [facility] 2017-09-17 10:30:25 2017-09-17 10:30:25 [facility] [id number] [facility] Results Test Description Test Time Test Comments Results Result Comments Source MIKAELA OB 1ST 2019-10-17 23:36:00 [facility] [address] [place] [address] Patient Name: WEI TRINIDAD MR #: [id number] : 1990 Age/Sex: 29/F Req #: [id number] Adm Physician: Ordered by: DANIEL WICK MD Report #: [id number] Location: [facility] Room/Bed: Procedure: [id number] HOPD/US MIKAELA OB Exam Date: 10/17/19 Exam Time: 2224 REPORT STATUS: Signed EXAM: First Trimester Obstetric Pelvic Ultrasound INDICATION: Abdominal pain, positive test COMPARISON: None TECHNIQUE: Grayscale transverse and sagittal transabdominal and transvaginal images were obtained of the pelvis. Transvaginal imaging was medically necessary to better evaluate the endometrium, adnexa, and fetus. CLINICAL HISTORY: 29 year old Last menstrual period: 08/04/2019 FINDINGS: Uterus: Orientation: Normal Size: 9 x 7.2 x 7.3 cm, enlarged Mass: None Cervix: Nabothian cysts Gestational Sac: Location: Intrauterine Average sac diameter: 3.8 cm Estimated sonographic GA: 9 weeks 0 days Appearance: Normal in contour Subchorionic hemorrhage: None Yolk sac: Not seen Embryo/Fetus: Moselle rump length: 4.41 cm Estimated sonographic GA: 11 weeks 5 days Cardiac activity: 191 bpm, elevated Right ovary Size: 3.7 x 1.7 x 1.2 cm Mass/Cyst: None Left ovary Size: 2.4 x 1.6 x 1.5 cm Mass/Cyst: None Cul-de-sac: No free fluid IMPRESSION: 1. Viable intrauterine : Routine followup. Elevated heart rate, 191 beats per minute. 2. Estimated sonographic gestational age: 11 weeks 5 days CLASSIFICATION Viable: can potentially result in a liveborn baby Visualized embryo with FHT Nonviable: Findings diagnostic of failure * Ectopic * CRL >= 7 mm and no FHT * MSD >= 25 mm and no embryo * No FHT >= 2 weeks after US showed GS w/o YS * No FHT >= 11 days after US showed GS w/ YS Intrauterine of uncertain viability: Intrauterine GS with no FHT and no definite findings of failure of unknown location: Positive urine or serum test and no IUP or ectopic on US Diagnostic Criteria for Nonviable Early in the First Trimester N Engl J Med 2013;369:1443-51. DOI: [id number] Signed by: Dash Palma DO on 10/17/2019 11:40 PM Dictated By: DASH PALMA DO 39 Transcribed By: JOANNE on 10/17/192339 COPY TO: DANIEL WICK MD [Q] OBSTETRIC PANEL W/FOURTH GENERATION HIV 2019-09-27 14:52 :00 Test Item WHITE BLOOD CELL COUNT (test code = WHITE BLOOD CELL COUNT) 9.4 {Thousand/u} 3.8-10.8 N RED BLOOD CELL COUNT (test code = RED BLOOD CELL COUNT) 5.05 {Million/uL} 3.80-5.10 N HEMOGLOBIN; Normal (test code = 54335-6) 13.6 g/dl 11.7-15.5 N HEMATOCRIT; Normal (test code = 4544-3) 42.3 % 35.0-45.0 N MCV; Normal (test code = 787-2) 83.8 fL 80.0-100.0 N MCHC; Normal (test code = 28356-8) 32.2 g/dl 32.0-36.0 N RDW; Normal (test code = 788-0) 12.2 % 11.0-15.0 N PLATELET COUNT; Normal (test code = 777-3) 326 {Thousand/u} 140-400 N MPV; Normal (test code = 76118-1) 9.6 fL 7.5-12.5 N ABSOLUTE NEUTROPHILS (test code = ABSOLUTE NEUTROPHILS) 7182 {cells/uL} 0265-1264 N ABSOLUTE LYMPHOCYTES (test code = ABSOLUTE LYMPHOCYTES) 1551 {cells/uL} 850-3900 N ABSOLUTE MONOCYTES (test code = ABSOLUTE MONOCYTES) 592 {cells/uL} 200-950 N ABSOLUTE EOSINOPHILS (test code = ABSOLUTE EOSINOPHILS) 56 {cells/u L} 15-500 N ABSOLUTE BASOPHILS (test code = ABSOLUTE BASOPHILS) 19 {cells/uL} 0 -200 N NEUTROPHILS (test code = NEUTROPHILS) 76.4 % N LYMPHOCYTES (test code = LYMPHOCYTES) 16.5 % N MONOCYTES; Normal (test code = 31553-3) 6.3 % N EOSINOPHILS; Normal (test code = 07987-3) 0.6 % N BASOPHILS; Normal (test code = 65275-9) 0.2 % N ANTIBODY SCREEN, RBC W/REFL ID, TITER AND AG; Normal ( test code = 890-4) NO ANTIBODIES DETECTED N Reference range No antibodies detected This assay is a screening test for the detection of red blood cell antibodies. The test is not to be used for pretransfusion screening or for the medical management of an alloimmunized . ABO GROUP (test code = 883-9) A RH TYPE (test code = 63608-9) RH(D) POSITIVE For additional information, please refer to http://education.[employer].Genomas/faq/ZYL398 (This link is being provided for informational/educational purposes only.) HEPATITIS B SURFACE ANTIGEN; Normal (test code = 5195-3) NON -REACTIVE NON-REACTIVE N RUBELLA ANTIBODY (IGG); Normal (test code = 87458-8) 10.30 {index} N Index Interpretation ----- <0.90 Not consistent with Immunity 0.90-0.99 Equivocal > or = 1.00 Consistent with Immunity The presence of rubella IgG antibody suggests immunization or past or current infection withrubella virus. RPR (DX) W/REFL TITER AND CONFIRMATORY T ESTING (test code = RPR (DX) W/REFL TITER AND CONFIRMATORY TESTING) NON-REACTIVE NON-REACTIVE N HIV AG/AB, 4TH GEN; Normal (test code = 25235-7) NON-REACTIVE NON-R EACTIVE N HIV-1 antigen and HIV-1/HIV-2 antibodies were notdetected. [...] purpose. For additional information please refer t ndttp://education.[employer]/faq/SAV345(This link is being provided for informational/educational purposes only.) The performance of this assay has not been clinicallyvalidated in patients less than 2 years old. [facility][Q] HEMOGLOBINOPATHY [id number] 14:52:00 * Test Item Value Reference Range Interpretation Comments RED BLOOD CELL COUNT (test code = RED BLOOD CELL COUNT) 4.70 {Million/uL} 3.80-5.10 N HEMOGLOBIN; Normal (test code = 75432-8) 13.5 g/dl 11.7-15.5 N HEMATOCRIT; Normal (test code = 4544-3) 39.5 % 35.0-45.0 N MCV; Normal (test code = 787-2) 84.0 fL 80.0-100.0 N MCH; Normal (test code = 85285-0) 28.7 pg 27.0-33.0 N RDW; Normal (test code = 788-0) 12.2 % 11.0-15.0 N HEMOGLOBIN A (test code = HEMOGLOBIN A) 97.9 % >96.0 N HEMOGLOBIN F (test code = HEMOGLOBIN F) <1.0 <2.0 N HEMOGLOBIN A2 (QUANT); Normal (test code = 89691-0) 2.1 % 1. 8-3.5 N INTERPRETATION (test code = INTERPRETATION) See Comment Normal phenotype. [facility][QL] URINALYSIS, [id number] 14:52:00* Test Item Value Reference Range Interpretation Comments COLOR; Normal (test code = 5778-6) DARK YELLOW YELLOW N APPEARANCE (test code = APPEARANCE) CLEAR CLEAR N SPECIFIC GRAVITY; Normal (test code = 2965-2) 1.026 1.001-1. 035 N PH; Normal (test code = 2756-5) 8.0 5.0-8.0 N GLUCOSE; Normal (test code = 1547-9) NEGATIVE NEGATIVE N BILIRUBIN; Normal (test code = 67566-3) NEGATIVE NEGATIVE N KETONES; Normal (test code = 97403-3) NEGATIVE NEGATIVE N OCCULT BLOOD; Normal (test code = 61957-4) NEGATIVE NEGATIVE N PROTEIN; Normal (test code = 49154-1) NEGATIVE NEGATIVE N NITRITE; Normal (test code = 74114-0) NEGATIVE NEGATIVE N LEUKOCYTE ESTERASE (test code = LEUKOCYTE ESTERASE) NEGATIVE NE GATIVE N WBC; Normal (test code = 6690-2) 0-5 < OR = 5 N RBC; Normal (test code = 789-8) 0-2 < OR = 2 N SQUAMOUS EPITHELIAL CELLS (test code = 04121-5) 0-5 < OR = 5 BACTERIA; Abnormal (test code = 630-4) FEW NONE SEEN A HYALINE CAST; Normal (test code = 86239-9) NONE SEEN NONE SEEN N [facility][] CULTURE, URINE, [id number] 14:52:00* Test Item Value Reference Range Interpretation Comments CULTURE (test code = CULTURE) See Comment A CULTURE, URINE, ROUTINE Micro Number: [id number] Test Status: Final Specimen Source: URINE Specimen [...] cefdinir, cefpodoxime, cefprozil, cefuroxime, cephalexin and loracarbef. [facility][Q] SMA CARRIER [id number] 14:52:00* Test Item Value Reference Range Interpretation Comments TECHNICAL RESULTS (test code = TECHNICAL RESULTS) NEGATIVE NEGATIVE; AT LEAST TWO COPIES OF THE SMN1 GENE DETECTED SMN1 (test code = SMN1) 2 COPIES SMN2 (test code = SMN2) 1 COPY INTERPRETATION (test code = INTERPRETATION) SEE NOTE This analysis identified at least two (2) copies of the LXC1uanx. This result does not rule out carrier [...] in 117 1 in 1061 1 in 64562 SUPPLEMENTAL INFORMATIONSpinal muscular atrophy (SMA) is a family of disorders thatare characterized by progressive muscle weakness due to lossof anterior horn cells. A deletion of exon 7 in the FRT4qqpk causes 95% of SMA. New mutations account forapproximately 2% of SMA. SMN2 genes are able to produce aprotein identical to that of the SMN1 gene, but at a reduced(10-20%) capacity. As a result the number of copies of UHV6vcr been shown to influence the severity of the disease.This assay detects the copy number of the two common genes(SMN1 and SMN2) recommended by the [place] [employer] ofMedical Genetics (ACMG) for population-based SMA carrierscreening. Health care providers, please contact your local [employer]' genetic counselor or call [employer] at [id number] ([phone]) for assistance withthe interpretation of these results. METHODOLOGY:The copy number of the SMA genes (SMN1 and SMN2) is detectedby quantitative PCR. Although rare, false positive or falsenegative results may occur. All results should beinterpreted in context o f clinical findings, relevanthistory, and other laboratory data. Laboratory results andsubmitted clinical information reviewed by Kit Rowell MD, MHA, FACMG, CGMBS. This test was developed and its analytical performancecharacteristics have been determined by [facility]. It has not beencleared or approved by FDA. This assay has been validatedpursuant to the CLIA regulations and is used for clinicalpurposes. [facility][Q] KAIBYER-7-CMSAVMHUE DEHYDROGENASE, QUANT. 2019-09-27 14:52:00* Test Item Value Reference Range Interpretation Comments BGNFUQO-3-UHZHTSOSE DEHYDROGENASE (test code = TOORBRX-2-CGTRATMWM DEHYDROGENASE) 20.2 {U/g Hgb} 7.0-20.5 [facility][QL] CYSTIC FIBROSIS [id number] 14:52:00* Test Item Value Reference Range Interpretation Comments ETHNICITY: (test code = ETHNICITY:) B CF RESULT (test code = CF RESULT) NEGATIVE NEGATIVE NEGATIVE; NONE OF THE MUTATIONS LISTED BELOW WERE DETECTED INTERPRETATION (test code = INTERPRETATION) SEE NOTE This result does not rule out the presence of a mutation ora diagnosis of cystic fibrosis disease (CF). The risk formutations that cause CF other than the ones tested dependsgreatly on family history, clinical presentation, andethnicity. Chance of Having a CF Mutation Ethnic Group Detection Before After Negative Rate Test Result Ashkenazi Shinto 94% 1 in 24 1 in 400Non- 88% 1 in 25 1 in 208CaucasianHispanic-Moldovan 72% 1 in 46 1 in 164African-Moldovan 65% 1 in 65 1 in 186Asian-Moldovan 49% 1 in 94 1 in 184Other insufficient data available Health care providers, please contact your local [employer]' genetic counselor or call [employer] at [employer] ([phone]) for assistance withinterpretation of these results. MUTATIONS/POLYMORPHISMS (test code = MUTATIONS/POLYMORPHISMS) SEE N OTE MUTATIONS ANALYZED: G85E (c.254G>A) S549N (c.1646G>A)394delTT (c.262delTT) G551D (c.1652G>A)R117H (c.350G>A) R553X (c.1657C>T)621+1 G>T (c.489+1G>T) R560T (c.1679G>C)711+1 G>T (c.579+1G>T) 1898+1 G>A (c.1766+1G>A)1078delT (c.948delT) 2183AA>G (c.2051delAAinsG)R334W (c.1000C>T) 2184delA (c.2052delA)R347H (c.1040G>A) 2789+5 G>A (c.2657+5G>A)R347P (c.1040G>C) 3120+1 G>A (c.2988+1G>A)A455E (c.1364C>A) U1464R (c.3484C>T)C742fsn (c.1519delATC) 3659delC (c.3528delC)Y542exb (c.1521delCTT) 3849+10kb C>T (c.3717+90568S>T)V520F (c.1558G>T) 3876delA (c.3744delA)1717-1 G>A (c.1585-1G>A) 3905insT (c.3773insT)G542X (c.1624G>T) E4082R (c.3846G>A)S549R (c.1645A>C or c.1647T>G) Q2022S (c.3909C>G) This assay detects thirty-two mutations, including thetwenty-three core mutations recommended by the AmericanCollege of Medical Genetics (ACMG) and the [place] Congressof Obstetricians and Gynecologists (ACOG) forpopulation- based CF carrier screening. In addition to theACMG/ACOG panel, this assay detects nine additionalmutations. While these mutations are rare in the [place]population, the scientific and medical literature indicatesthat these mutations are not benign polymorphisms. Thestatus of the intron 9 (formerly intron 8) polyT tract isreported only when the R117H mutation is detected. METHOD (test code = METHOD) SEE NOTE The mutations are detected by multiplex-polymerase chainreaction (PCR) amplification of specific CF gene regions,followed by nucleotide sequence analysis on a massivelyparallel sequencing platform. Although rare, false positiveor false negative results may occur. All results should beinterpreted in the context of clinical findings, relevanthistory, and other laboratory data. REVIEWER (test code = REVIEWER) SEE NOTE Laboratory results and submitted clinical informationreviewed by Mariano Patel, Ph.D., [facility], [facility]. For additional information, please refer [email or web address]/cfscreen(This link is being provided for informational/educationalpurposes only.) This test was developed and its analytical performancecharacteristics have been determined by [facility]. It has not beencleared or approved by FDA. This assay has been validatedpursuant to the CLIA regulations and is used for clinicalpurposes. [facility][QL] HCG, TOTAL, [id number] 14:23:00* Test Item Value Reference Range Interpretation Comments HCG, TOTAL, QN (test code = HCG, TOTAL, QN) 94092 {miU/ml} Reference RangeNon or premenopausal <5Postmenopausal <10 Values from different assay methods may vary.The use of this assay to monitor or to diagnose patients with cancer or any condition unrelatedto has not been cleared or approved bythe FDA or the button cutter of the assay. [facility][QL] ANTIBODY SCREEN, RBC W/REFL ID, TITER AND AG 2019-09-10 14:23:00* Test Item Value Reference Range Interpretation Comments ANTIBODY SCREEN, RBC W/REFL ID, TITER AND AG; Normal ( test code = 890-4) NO ANTIBODIES DETECTED N Reference range No antibodies detected This assay is a screening test for the detection of red blood cell antibodies. The test is not to be used for pretransfusion screening or for the medical management of an alloimmunized . [facility][QL] ABO GROUP AND RH [id number] 14:23:00* Test Item Value Reference Range Interpretation Comments ABO GROUP (test code = 883-9) A RH TYPE (test code = 45240-5) RH(D) POSITIVE For additional information, please refer to [email or web address]/faq/WHH361 (This link is being provided for informational/educational purposes only.) [facility][O] Urine Test (in office)2019-09-10 13:40:00* Test Item Value Reference Range Interpretation Comments Test, Urine (test code = 2106-3) POSITIVE Control Line Present? (test code = Control Line Present?) Yes N [facility]iciansECG 12 [id number] 22:28:21* Test Item Value Reference Range Interpretation Comments Ventricular rate (test code = 253) 83 Atrial rate (test code = 255) 83 ID interval (test code = 266) 148 QRSD interval (test code = 260) 64 QT interval (test code = 264) 334 QTC interval (test code = 265) 392 P axis 1 (test code = 267) 52 QRS axis 1 (test code = 268) 45 T wave axis (test code = 270) 23 EKG impression (test code = 273) Sinus rhythm with mar ked sinus arrhythmia- Otherwise normal ECG-In automated comparison with ECG of 26-JAN-2018 22:22,-No significant change was found-Electronically Signed By Frederic Bravo MD ([id number]) on 10:28:18 PM [facility] MethodistComprehensive metabolic [id number] 22:50:52* Test Item Value Reference Range Interpretation Comments Sodium (test code = 2951-2) 136 135- 148 mEq/L Potassium (test code = 2823-3) 3.8 3.5- 5.0 mEq/L Chloride (test code = 2075-0) 101 98- 112 mEq/L CO2 (test code = 2027-9) 27 24- 31 mEq/L Anion gap (test code = 93516-7) 8@ANIO 7- 15 mEq/L BUN (test code = 3094-0) 18 mg/dL 6-20 Creatinine (test code = 2160-0) 0.85 mg/dL 0.5-0.9 Glucose (test code = 2345-7) 95 mg/dL 65-99 Calcium (test code = 72704-4) 9.2 mg/dL 8.3-10.2 Protein (test code = 2885-2) 7.8 g/dL 6.3-8.3 Albumin (test code = 1751-7) 4.2 g/dL 3.5-5 A/G ratio (test code = 1759-0) 1.2 0.7-3.8 Alkaline phosphatase (test code = 6768-6) 76 U/L 35-104 AST (test code = 1920-8) 18 U/L 10-35 ALT (test code = 1742-6) 12 U/L 5-50 Total bilirubin (test code = 1974-2) 0.2 mg/dL 0-1.2 [facility] MethodistEstimated [id number] 22:50:52* Test Item Value Reference Range Interpretation Comments Estimated GFR (test code = 5488) >=90 mL/min/1.73 m2 Catergory Units InterpretationG1 >=90 Normal or highG2 60-89 Mildly mywjeifkuQ2t 45-59 Mildly to moderately hggwdbuygB6g 30-44 Moderately to severely decreasedG4 15-29 Severely decreasedG5 <15 Kidney failureThe eGFR was calculated using the Chronic Kidney Disease Epidemiology Collaboration (CKD-EPI) equation. Interpretation is based on recommendations of the National Kidney Foundation-Kidney Disease Outcomes Quality Initiative (NKF-KDOQI) published in 2014. Onel MaciasB natriuretic [id number] 22:32:33* Test Item Value Reference Range Interpretation Comments BNP (test code = 67054-8) 26 pg/mL 0-100 [place] MethodistTroponin, [id number] 22:32:33* Test Item Value Reference Range Interpretation Comments Troponin, I-Stat (test code = 2359) 0.01 ng/mL 0-0.08 In patients suspected of having a myocardial infarction, along with all other appropriate clinical measures and actions including ECG and other diagnostics as appropriate, measure Ultra TnI at 0 hrs and at 3 hrs.Myocardial infarction VERY LIKELYThe 0 hr TnI level is > 0.10 ng/mL [place] cardial infarction LIKELYThe 0 hr TnI level is > 0.04 ng/mL and 3 hr level is increased or decreased by at least 0.020 ng/mL Myocardi al infarction VERY UNLIKELYBoth the 0 hr and 3 hr TnI levels <= 0.04 ng/mL(within normal limits) OR 0 hr is > 0.04 ng/mL and 3 hr is increased OR decreased by less than 0.020 ng/mL [facility] MethodisthCG qualitative, urine [id number] 22:27:03* Test Item Value Reference Range Interpretation Comments hCG qualitative, urine (test code = 2106-3) Negative Sensitivity of HCG test: 25 mIU/mLNegative test results in patients suspected to be should be retested with a sample obtained 48-72 hours later, or by performing a quantitative assay. [place] IpiogpenkDqzzywigyj4680-72-74 22:22:49* Test Item Value Reference Range Interpretation Comments Glucose, UA (test code = 12162-7) Negative Negative Bilirubin, UA (test code = 5770-3) Negative Negative Ketones, UA (test code = 2514-8) Negative Negative Specific gravity, UA (test code = 5811-5) 1.015 1.001-1.035 Blood, UA (test code = 5794-3) Negative Negative pH, UA (test code = 5803-2) 7.0 5.0-8.5 Protein, UA (test code = 59334-2) Negative Negative Urobilinogen, UA (test code = 23543-2) <2.0 <2.0 Nitrite, UA (test code = 5802-4) Negative Negative Leukocyte esterase, UA (test code = 5799-2) Trace Negative A Color, UA (test code = 5778-6) Yellow Appearance, UA (test code = 5767-9) Clear Lab Interpretation (test code = 96213-4) Abnormal [facility] MethodistCBC with platelet and mbuolcktfkym2472-89-39 22:22:44* Test Item Value Reference Range Interpretation Comments WBC (test code = 86575-3) 10.69 4.50- 11.00 k/uL RBC (test code = 77562-0) 4.68 m/uL 4.2-5.5 HGB (test code = 718-7) 12.8 g/dL 12-16 HCT (test code = 4544-3) 39.9 % 37-47 MCV (test code = 787-2) 85.3 fL 82-100 MCH (test code = 785-6) 27.4 pg 27-34 MCHC (test code = 786-4) 32.1 g/dL 31-37 RDW - SD (test code = 61957-5) 42.4 fL 37-55 MPV (test code = 28001-4) 9.1 fL 8.8-13.2 Platelet count (test code = 00910-0) 304 150- 400 k/uL Neutrophils (test code = 37440-9) 57.8 % 39-69 Lymphocytes (test code = 64342-7) 32.3 % 25-45 Monocytes (test code = 00856-5) 9.0 % 0-10 Eosinophils (test code = 31322-0) 0.8 % 0-5 Basophils (test code = 04463-0) 0.1 % 0-1 [facility] MethodistXR Chest 2 [id number] 22:00:27Hm Interface, Radiology Results - 07/20/2019 10:03 PM CDTEXAMINATION: XR CHEST 2 VWCLINICAL HISTORY: 29 years Female CPCOMPARISON: 07/19/2018IMPRESSION:Lines/Tubes: None.Lungs/Pleura: The lungs are clear. No pleural effusion or p neumothorax.Heart/Mediastinum: The cardiomediastinal silhouette is normal.Bones: No acute osseous abnormality.[facility]-[id number] MethodistRAD, CHEST, 1 VIEW, NON [id number] 13:17:00Reason for exam:->COUGHShould this be performed at the bedside?->YesIs the patient ?->NoFINAL REPORT INDICATION: COUGH COMPARISON: June 29, 2018 TECHNIQUE: Single frontal view of the chest. FINDINGS: Lungs and pleura: Clear lungs. No effusion.Heart and mediastinum: Normal heart size. Unremarkable mediastinal contours.Osseous structures: No acute abnormality.Other: None. IMPRESSION: No acute intrathoracic abnormality. Signed: JR Singh Robert MDReport Verified Date/Time: 09/18/2018 13:17:38 Reading Location: [address] Consult Reading Room ALYSIS W/ REFLEX URINE [id number] 00:18:00* Test Item Value Reference Range Interpretation Comments COLOR (BEAKER) (test code = 470) Yellow CLARITY (BEAKER) (test code = 469) Hazy SPECIFIC GRAVITY UA (BEAKER) (test code = 468) 1.020 1.001-1 .035 PH UA (BEAKER) (test code = 467) 6.5 5.0-8.0 PROTEIN UA (BEAKER) (test code = 464) Negative Negative GLUCOSE UA (BEAKER) (test code = 365) Negative Negative KETONES UA (BEAKER) (test code = 371) Trace Negative A BILIRUBIN UA (BEAKER) (test code = 462) Negative Negative BLOOD UA (BEAKER) (test code = 461) Negative Negative NITRITE UA (BEAKER) (test code = 465) Negative Negative LEUKOCYTE ESTERASE UA (BEAKER) (test code = 466) Negative Negat lizzie UROBILINOGEN UA (BEAKER) (test code = 463) 0.2 mg/dL 0.2-1.0 BACTERIA (BEAKER) (test code = 517) Few MUCUS (BEAKER) (test code = 1574) Moderate RBC UA-MANUAL (BEAKER) (test code = 1659) None Seen /HPF WBC UA-MANUAL (BEAKER) (test code = 1661) <5 /HPF SQUAMOUS EPITHELIAL MANUAL (BEAKER) (test code = 1663) 5-10 /HPF SOURCE(BEAKER) (test code = 2795) SCREEN, [id number] 00:17:00* Test Item Value Reference Range Interpretation Comments TEST URINE (BEAKER) (test code = 583) Negative B-TYPE NATRIURETIC FACTOR (BNP)2018-06-29 23:47:00* Test Item Value Reference Range Interpretation Comments B-TYPE NATRIURETIC PEPTIDE (BEAKER) (test code = 700) 12 pg/mL 0-100 TROPONIN [id number] 23:43:00* Test Item Value Reference Range Interpretation Comments TROPONIN I (BEAKER) (test code = 397) < ng/mL 0.00-0.03 Troponin I (TnI) levels must be interpreted in the context of the presenting sym ptoms and the clinical findings. Elevated TnI levels indicate myocardial damage, but are not specific for ischemic heart disease. Elevated TnI levels are seen i n patients with other cardiac conditions (including myocarditis and congestive h eart failure), and slight TnI elevations occur in patients with other conditions , including sepsis, renal failure, acidosis, acute neurological disease, and per sistent tachyarrhythmia.COMPREHENSIVE METABOLIC [id number] 23:42:00* Test Item Value Reference Range Interpretation Comments TOTAL PROTEIN (BEAKER) (test code = 770) 7.0 gm/dL 6.0-8.5 ALBUMIN (BEAKER) (test code = 1145) 3.8 g/dL 3.5-5.0 ALKALINE PHOSPHATASE (BEAKER) (test code = 346) 79 U/L 30-115 BILIRUBIN TOTAL (BEAKER) (test code = 377) 0.2 mg/dL 0.1-1.2 SODIUM (BEAKER) (test code = 381) 139 meq/L 135-148 POTASSIUM (BEAKER) (test code = 379) 4.2 meq/L 3.6-5.5 CHLORIDE (BEAKER) (test code = 382) 105 meq/L 98-106 CO2 (BEAKER) (test code = 355) 29 meq/L 20-29 BLOOD UREA NITROGEN (BEAKER) (test code = 354) 13 mg/dL 10-26 CREATININE (BEAKER) (test code = 358) 0.83 mg/dL 0.50-1.20 GLUCOSE RANDOM (BEAKER) (test code = 652) 101 mg/dL 70-110 CALCIUM (BEAKER) (test code = 697) 8.6 mg/dL 8.5-10.5 AST (SGOT) (BEAKER) (test code = 353) 13 U/L 5-40 ALT (SGPT) (BEAKER) (test code = 347) 11 U/L 5-50 EGFR (BEAKER) (test code = 1092) 99 mL/min/1.73 sq m ESTIMATED GFR IS NOT ACCURATE CREATININE CLEARANCE IN PREDICTING GLOMERULAR FILTRATION RATE. ESTIMATED GFR IS NOT APPLICABLE FOR DIALYSIS PATIENTS. CBC W/PLT COUNT & AUTO [id number] 23:25:00* Test Item Value Reference Range Interpretation Comments WHITE BLOOD CELL COUNT (BEAKER) (test code = 775) 8.3 K/ L 4.0- 10.0 RED BLOOD CELL COUNT (BEAKER) (test code = 761) 4.60 M/ L 4.00-5 .00 HEMOGLOBIN (BEAKER) (test code = 410) 12.7 GM/DL 12.0-15.5 HEMATOCRIT (BEAKER) (test code = 411) 40.0 % 36.0-46.0 MEAN CORPUSCULAR VOLUME (BEAKER) (test code = 753) 87.0 fL 82. 0-99.0 MEAN CORPUSCULAR HEMOGLOBIN (BEAKER) (test code = 751) 27.6 pg 27.0-33.0 MEAN CORPUSCULAR HEMOGLOBIN CONC (BEAKER) (test code = 752) 31.8 GM/DL 32.0-36.0 L RED CELL DISTRIBUTION WIDTH (BEAKER) (test code = 412) 13.3 % 12.0-15.0 PLATELET COUNT (BEAKER) (test code = 756) 292 K/CU MM 150-430 MEAN PLATELET VOLUME (BEAKER) (test code = 754) 9.4 fL 6.0-11 .5 NUCLEATED RED BLOOD CELLS (BEAKER) (test code = 413) 0 /100 WBC 0 -0 NEUTROPHILS RELATIVE PERCENT (BEAKER) (test code = 429) 45 % LYMPHOCYTES RELATIVE PERCENT (BEAKER) (test code = 430) 45 % MONOCYTES RELATIVE PERCENT (BEAKER) (test code = 431) 8 % EOSINOPHILS RELATIVE PERCENT (BEAKER) (test code = 432) 2 % BASOPHILS RELATIVE PERCENT (BEAKER) (test code = 437) 0 % NEUTROPHILS ABSOLUTE COUNT (BEAKER) (test code = 670) 3.73 K/ L 1.80-8.00 LYMPHOCYTES ABSOLUTE COUNT (BEAKER) (test code = 414) 3.71 K/ L 1.48-4.50 MONOCYTES ABSOLUTE COUNT (BEAKER) (test code = 415) 0.68 K/ L 0. 00-1.30 EOSINOPHILS ABSOLUTE COUNT (BEAKER) (test code = 416) 0.15 K/ L 0.00-0.50 BASOPHILS ABSOLUTE COUNT (BEAKER) (test code = 417) 0.03 K/ L 0. 00-0.20 IMMATURE GRANULOCYTES-RELATIVE PERCENT (BEAKER) (test code = 2801) 0 % 0-0 RAPID INFLUENZA A&B [id number] 21:24:00* Test Item Value Reference Range Interpretation Comments RAPID INFLUENZA A AG (BEAKER) (test code = 1622) Negative Negative, Inconclusive RAPID INFLUENZA B AG (BEAKER) (test code = 1623) Negative Negative, Inconclusive RAD, CHEST, 2 [id number] 21:22:00Reason for exam:->GENERALIZED WEAKNESS, NOT ASSOCIATED WITH EXTREMITIESFINAL REPORT INDICATION: GENERALIZED WEAKNESS, NOT ASSOCIATED WITH EXTREMITIES COMPARISON: None TECHNIQUE: Frontal and lateral views of the chest. FINDINGS: Lungs and pleura: Airspace opacity within the lower lobes, best seen on lateral radiograph. No effusion.Heart and mediastinum: Normal heart size. Unremarkable mediastinal contours.Osseous structures: No acute abnormality.Additional findings: None. IMPRESSION: Lower lobe airspace disease concerning for infection Signed: Nona Nolan MDReport Verified Date/Time: 06/29/2018 21:22:13 Reading Location: [facility] C013V Neuro Reading Room 2 VIEW - [id number] 23:31:00 [place] [address] Patient Name: WEI TRINIDAD MR #: [id number] : 1990 Age/Sex: 28/F Req #: [id number] Adm Physician: Ordered by: AMANDA LACY MD Report #: [id number] Location: ED Room/Bed: Procedure: [id number] 0012 HOPD/CXR 2 VIEW - HOPD Exam Date: 02/15/18 Exam Time: 2319 REPORT STATUS: Signed Exam: PA and lateral view of the chest Indication: Chest pain, shortness of breath, cough Comparison: None Findings: The lungs are clear. No pleural effusions or pneumothorax. The cardiomediastinal silhouette and bones are norm al. Impression: Normal chest x-ray. No evidence of pneumonia. Sign ed by: Dr. Hector Alonso M.D. on 02/15/2018 11:32 PM Dictated By: PATRICIA ALONSO MD 31 Tra nscribed By: JOANNE on 02/15/182331 COPY TO: AMANDA LACY MD SCREEN, [id number] 23:41:00* Test Item Value Reference Range Interpretation Comments TEST URINE (BEAKER) (test code = 583) Negative CBC W/PLT COUNT & AUTO [id number] 01:50:00* Test Item Value Reference Range Interpretation Comments WHITE BLOOD CELL COUNT (BEAKER) (test code = 775) 9.1 K/ L 4.0- 10.0 RED BLOOD CELL COUNT (BEAKER) (test code = 761) 4.21 M/ L 4.00-5 .00 HEMOGLOBIN (BEAKER) (test code = 410) 12.1 GM/DL 12.0-15.0 HEMATOCRIT (BEAKER) (test code = 411) 35.8 % 36.0-45.0 L MEAN CORPUSCULAR VOLUME (BEAKER) (test code = 753) 85.0 fL 82. 0-99.0 MEAN CORPUSCULAR HEMOGLOBIN (BEAKER) (test code = 751) 28.7 pg 27.0-33.0 MEAN CORPUSCULAR HEMOGLOBIN CONC (BEAKER) (test code = 752) 33.8 GM/DL 32.0-36.0 RED CELL DISTRIBUTION WIDTH (BEAKER) (test code = 412) 13.2 % 10.3-14.2 PLATELET COUNT (BEAKER) (test code = 756) 288 K/CU MM 150-430 MEAN PLATELET VOLUME (BEAKER) (test code = 754) 9.2 fL 6.5-10 .5 NUCLEATED RED BLOOD CELLS (BEAKER) (test code = 413) 0 /100 WBC 0 -0 NEUTROPHILS RELATIVE PERCENT (BEAKER) (test code = 429) 57 % LYMPHOCYTES RELATIVE PERCENT (BEAKER) (test code = 430) 37 % MONOCYTES RELATIVE PERCENT (BEAKER) (test code = 431) 5 % EOSINOPHILS RELATIVE PERCENT (BEAKER) (test code = 432) 1 % BASOPHILS RELATIVE PERCENT (BEAKER) (test code = 437) 0 % NEUTROPHILS ABSOLUTE COUNT (BEAKER) (test code = 670) 5.19 K/ L 1.80-8.00 LYMPHOCYTES ABSOLUTE COUNT (BEAKER) (test code = 414) 3.32 K/ L 1.48-4.50 MONOCYTES ABSOLUTE COUNT (BEAKER) (test code = 415) 0.48 K/ L 0. 00-1.30 EOSINOPHILS ABSOLUTE COUNT (BEAKER) (test code = 416) 0.09 K/ L 0.00-0.50 BASOPHILS ABSOLUTE COUNT (BEAKER) (test code = 417) 0.02 K/ L 0. 00-0.20 CT, BRAIN, WITHOUT [id number] 18:50:00Reason for exam:->headache, eye painWhat is the [...] evaluation with MRI is recommended. Signed: James Kinsey Verified Date/Time: 08/09/2017 18:50:12 Reading Location: [facility] Radiology Reading Room C METABOLIC [id number] 23:51:00* Test Item Value Reference Range Interpretation Comments SODIUM (BEAKER) (test code = 381) 141 meq/L 135-148 POTASSIUM (BEAKER) (test code = 379) 3.9 meq/L 3.6-5.5 CHLORIDE (BEAKER) (test code = 382) 102 meq/L 98-106 CO2 (BEAKER) (test code = 355) 24 meq/L 20-29 BLOOD UREA NITROGEN (BEAKER) (test code = 354) 5 mg/dL 10-26 L CREATININE (BEAKER) (test code = 358) 0.87 mg/dL 0.50-1.20 GLUCOSE RANDOM (LISA) (test code = 652) 83 mg/dL 70-110 CALCIUM (BEAKER) (test code = 697) 10.0 mg/dL 8.5-10.5 EGFR (LISA) (test code = 1092) 95 mL/min/1.73 sq m ESTIMATED GFR IS NOT ACCURATE CREATININE CLEARANCE IN PREDICTING GLOMERULAR FILTRATION RATE. ESTIMATED GFR IS NOT APPLICABLE FOR DIALYSIS PATIENTS. [id number] 23:50:00* Test Item Value Reference Range Interpretation Comments MAGNESIUM (LISA) (test code = 627) 2.1 mg/dL 1.5-3.0 RAD, CHEST, 2 [id number] 01:23:00Reason for exam:->CHILLSReason for exam:-> SHORTNESS OF [...] occult process is suspected. Signed: Su Norwood Verified Date/Time: 02/21/2017 01:23:55 Reading Location: [address] Reading Room UE [id number] 12:12:00Surgical Pathology Report Case: [id number] Authorizing Provider: Ayanna Farfan Ordering Provider: Jones-Ayanna Early MD [place], MD Ordering Location: [facility] PERI[facility] Collected: 04/29/2016 1300 SERVICES Pathologist: Karime [...] (SEE COMMENT) Signing Pathologist Direct Phone Line: [phone] & B. The tumor involves mesoappendix in [...]
--- OUTSIDE RECORDS SUMMARY | 2019-10-18 21:01 | XMS REPORT | Summary of Care ---
Author Author WEI SANCHEZ M.D. Organization Unknown Address Unknown Phone Unavailable Care Team Providers Care Sales Order Specialist Name Role Phone JAZMINE SANCHEZ M.D. Unavailable [...] (finding) Vital Signs Date Test Result Details [id number] Systolic blood pressure 114 mm[Hg] Status: Comments [...] /min Status: Respiratory rate 16 /min Status: [id number] Systolic blood pressure 116 mm[Hg] Status: Comments [...] [QL] HCG, TOTAL, [place] [address] {miU/ml} (Above high thre shold) Comments: Reference RangeNon or premenopausal <5Postmenopausal <10 Values from different assay methods may vary.The use of this assay to monitor or to diagnose patients with cancer or any condition unrelatedto has not been cleared or approved bythe FDA or the racker octave board of the assay. :23 [QL] ANTIBODY SCREEN, [...] For a dditional information, please refer to http://education.Cono-C.Top Image Systems/faq/FFY717 (This link is being provided for informational/educational purposes only.) :40 [O] Urine Test (in office) Test, Urine POSITIVE Control Line Present? Yes (Normal) :52 [QL] URINALYSIS, COMPLETE COLOR DARK YELLOW [...] SEEN {/LPF} (Normal) Range : NONE SEEN Plan of Care Name Dates Details Planned Observations Planned Goals not documented Planned Encounters Appointment; JAZMINE SANCHEZ M.D. On: 04-Oct-2019 11:00 Appointment; JAZMINE SANCHEZ M.D. On: 25-Oct-2019 13:30 Interventions Provided Medication Changes* Promethazine HCl - 25 MG Oral Tablet - Start Instructions Name Dates Details Instructions not documented Encounters Appointment; JAZMINE SANCHEZ M.D. Encounter Diagnosis: Problem not documented On: 10-Sep-2019 13:00 Appointment; JAZMINE SANCHEZ M.D. Encounter Diagnosis: Problem not documented On: 24-Sep-2019 9:45 Appointment; NEO-ASAD, 1 Encounter Diagnosis: Problem not documented On: 24-Sep-2019 15:30 Appointment; JAZMINE SANCHEZ M.D. Encounter Diagnosis: Problem not documented On: 27-Sep-2019 14:00
--- OUTSIDE RECORDS SUMMARY | 2019-10-18 21:01 | XMS REPORT | Summary of Care ---
Author Author WEI SANCHEZ M.D. Organization Unknown Address Unknown Phone Unavailable Care Team Providers Care Supervising Editor Trailer Name Role Phone TOM IVORY MD Unavailable Unavailable JAZMINE SANCHEZ [...] Vitamins TABS * Refills: 0 M.D. Active Allergies and Adverse Reactions Name Dates [...] (finding) Vital Signs Date Test Result Details [id number] Systolic blood pressure 116 mm[Hg] Status: Comments : Location: E; Position: Sitting Diastolic blood pressure 75 mm[Hg] Status: Comment s: [place] [facility] [place] Position: Sitting Body height 62 in Status: [...] [QL] HCG, TOTAL, Q[place] [address] {miU/ml} (Above high thre shold) Comments: Reference RangeNon or premenopausal <5Postmenopausal <10 Values from different assay methods may vary.The use of this assay to monitor or to diagnose patients with cancer or any condition unrelatedto has not been cleared or approved bythe FDA or the antisqueak filler of the assay. :23 [QL] ANTIBODY SCREEN, [...] For a dditional information, please refer to http://education.QuickCheck Health.MakeGamesWithUs/faq/PAE195 (This link is being provided for informational/educational [...]
== END 2019-10-17 22:17 | disposition home or self-care (01) ==
LOC: FSED 20:59
DX: O26.91 Pregnancy related conditions, unspecified, first trimester (principal); R10.2 Pelvic and perineal pain; R10.30 Lower abdominal pain, unspecified
CPT/HCPCS: 76817; 81003; 81025; 99283

== ENCOUNTER 2019-10-28 23:03 | Emergency (ER) | payer OTHER ==
[~2019-10-28] VITALS: Ht 157.5 cm; Wt 98.0 kg
[2019-10-28] MEDS ORDERED: ACETAMINOPHEN 325 MG TAB PO ONE (23:15)
[2019-10-28] MEDS ORDERED: ACETAMINOPHEN 325 MG TAB ONE (23:27)
--- NOTE | 2019-10-28 23:36 | Emergency Department Note ---
History of Present Illnes History of Present Illness Chief Complaint: > 20 Weeks History of Present Illness This is a 29 year old female Chief Complaint Comment PT HERE FOR VAGINAL PAIN AND VAGINAL BLEEDING, STATES SHE IS 12 WEEKS , PT SEEN HERE 10/16 FOR VAGINAL PAIN WELL, STATES WAS NOT TOLD TO FOLLOW UP WITH PROMOTIONS TEAM LEADER OR TO GO TO HOSPITAL WHERE OB SERVICES IN CASE OF WORSENING SYMPTOMS, STATES HAS ONLY HAD TO USE ONE PAD SINC ETHE BLEEDING STARTED TODAY, STATES SHE HAS HAD TO WIPE SEVERAL TIMES AND A FEW TIMES FELT A LARGE BALL COME OUT??? . Historian: Patient Arrival Mode: Car Onset (how long ago): day(s) (1) Location: PELVIC Quality: CRAMPING Radiation: Denies non-radiation, Denies back, Denies neck, Denies extremity, Denies abdomen, Denies periumbilical, Denies flank, Denies proximal, Denies distal, Denies other Severity: mild Onset quality: gradual Duration (how long): day(s) (1) Timing of current episode: intermittent Progression: improving Chronicity: new Context: Denies recent illness, Denies recent surgery, Denies recent immobilization, Denies recent travel, Denies trauma/injury, Denies new medications, Denies hx of DVT/PE, Denies non-compliance w/ medications, Denies other Relieving factors: none Exacerbating factors: none Associated symptoms: Reports denies other symptoms Treatments prior to arrival: none Past Medical/Family History Physician Review I have reviewed the patient's past medical and family history. Any updates have been documented here. Past Medical History Recent Fever: No Clinical Suspicion of Infectio: No New/Unexplained Change in Ment: No Past Medical History: None Past Surgical History: Appendectomy Other Surgery: APPENDIX REMOVED BC OF TUMOR Social History Smoking Cessation: Never Smoker Counseling Performed: No Alcohol Use: None Any Illegal Drug Use: No Physically hurt or threatened: No Other Last Tetanus: UTD Any Pre-Existing Lines (PICC,: No Review of Systems Review of Systems Constitutional: Reports no symptoms EENTM: Reports no symptoms Cardiovascular: Reports no symptoms Respiratory: Reports no symptoms Gastrointestinal: Reports no symptoms Genitourinary: Reports as per HPI Musculoskeletal: Reports no symptoms Integumentary: Reports no symptoms Neurological: Reports no symptoms Psychological: Reports no symptoms Endocrine: Reports no symptoms Hematological/Lymphatic: Reports no symptoms Physical Exam Related Data Allergies: Coded Allergies: azithromycin (Verified Allergy, Unknown, CHEST TIGHTNESS, 06/06/19) ibuprofen (Verified Allergy, Unknown, 02/15/18) sulfamethoxazole (Verified Allergy, Unknown, 02/15/18) trimethoprim (Verified Allergy, Unknown, 02/15/18) Triage Vital Signs Vital Signs Date Time Temp Pulse Resp B/P (MAP) Pulse Ox O2 Delivery O2 Flow Rate FiO2 10/28/19 23:03 98.3 90 18 139/77 100 Room Air Vital signs reviewed: Yes Physical Exam CONSTITUTIONAL Constitutional: Present well-developed, Present well-nourished HENT HENT: Present normocephalic, Present atraumatic, Present oropharynx clear/moist, Present nose normal HENT L/R: Present left ext ear normal, Present right ext ear normal EYES Eyes: Reports PERRL, Reports conjunctivae normal NECK Neck: Present ROM normal PULMONARY Pulmonary: Present effort normal, Present breath sounds normal CARDIOVASCULAR Cardiovascular: Present regular rhythm, Present heart sounds normal, Present capillary refill normal, Present normal rate GASTROINTESTINAL Abdominal: Present soft, Present nontender, Present bowel sounds normal GENITOURINARY Genitourinary: Present exam deferred SKIN Skin: Present warm, Present dry MUSCULOSKELETAL Musculoskeletal: Present ROM normal NEUROLOGICAL Neurological: Present alert, Present oriented x 3, Present no gross motor or sensory deficits PSYCHOLOGICAL Psychological: Present mood/affect normal, Present judgement normal Results Laboratory Lab results reviewed: Yes Assessment & Plan Medical Decision Making MDM THreatened AB Reassessment Reassessment time: 23:35 Reassessment BETTER Assessment & Plan Final Impression: (1) Threatened (2) Abdominal pain affecting Depart Disposition: HOME, SELF-CARE Last Vital Signs Date Time Temp Pulse Resp B/P (MAP) Pulse Ox O2 Delivery O2 Flow Rate FiO2 10/28/19 23:03 98.3 90 18 139/77 100 Room Air Home Meds Active Scripts Cephalexin Monohydrate (KEFLEX) 500 Mg Capsule, 500 MG PO Q6H, #28 TAB 0 Refills Prov:MARGARET AMOR MD 06/17/19 Famotidine (PEPCID) 20 Mg Tablet, 20 MG PO BID, #20 TAB Prov:MARGARET AMOR MD 06/06/19 Dicyclomine Hcl (BENTYL) 10 Mg/1 Ml Ampul, 10 MG IV QID for pain, #20 VIAL Prov:MARGARET AMOR MD 06/06/19 Medications in the ED Acetaminophen 650 mg ONCE ONCE PO Last administered on 10/28/19at 23:21; Admin Dose 650 MG; Start 10/28/19 at 23:15; Stop 10/28/19 at 23:16; Status UNV MARGARET AMOR MD Oct 28, 2019 23:36
--- OUTSIDE RECORDS SUMMARY | 2019-10-28 23:38 | XMS REPORT | Clinical Summary ---
Author Author [facility] Organization [facility] Address Unknown Phone Unavailable Care Team Providers Care Supervisor Liquid Yeast Name Role Phone PCP Unavailable Allergies Comments Active Allergy Reactions Severity Noted Date Uyd-Gmirpjzcjrukp-Zrrs-Bu 09/17/2017 ffers Sulfamethoxazole-Trimetho 09/17/2017 prim Ibuprofen 09/17/2017 [...] (>/= 19 yrs) Results Not on fileafter 10/27/2018 Insurance Type Payer Benefit Subscriber ID Effective Phone Address Plan / Dates Group [place] [id number] TANF xxxxxxxxx 2017-P [phone] [id number] [place] [address] [facility] SELF-PAY SELF-PAY xxxxxxx 2017-5 [address] [place] [address] Guarantor Name Account Relation to Date of Phone Billin g Address Type Patient INÉS MAYORGA Personal/F Head of 1990 [id number] [place] Household (Home) [place], [place] [address] (Self)
--- OUTSIDE RECORDS SUMMARY | 2019-10-28 23:38 | XMS REPORT | Clinical Summary ---
Author Author [facility] Address Unknown Phone Unavailable Care Team Providers Care Contractor Field Hauling Name Role Phone Kenisha South PCP Allergies Comments Active Allergy Reactions Severity Noted Date States makes chest feel "tihgt" Azithromycin 09/21/2018 Sulfamethoxazole-Trimetho Swelling 09/13/2017 prim Egg 10/31/2017 Lip swelling Ibuprofen 08/26/2017 Medications End Date Status Medication Sig Dispensed Refills Start Date 07/30/2019 traMADoL (ULTRAM) 50 mg Take 1 tablet 20 tablet 0 tabletIndications: acute (50 mg total) 0 pain by mouth every 6 (six) hours as needed for moderate pain for up to 10 days .acute pain. Active Problems Estimated Date of Delivery Comments Yes 05/10/2020 No additional problems on file Encounters Care Team Description Date Type Specialty 10/20/2019 Travel Hina Alexander DO Threatened miscarriage (Primary Dx) 10/19/2019 Emergency Emergency Medicine - 10/20/2019 Jesse Leyva MD Chest pain, unspecified type (Primary Dx ) 07/20/2019 Emergency Emergency Medicine 07/20/2019 Travel after 10/27/2018 Social History Date Tobacco Use Types Packs/Day Years Used Never Smoker Smokeless Tobacco: Never Used Drinks/Week oz/Week Comments Alcohol Use No Estimated Date of Delivery Comments Yes 05/10/2020 Sex Assigned at Date Recorded Not on file Industry Job Start Date Occupation Not on file Not on file Not on file Travel End Travel History Travel Start No recent travel history available. Date Recorded COVID-19 Exposure Response 10/20/2019 12:35 AM CDT In the last month, have you been in contact with No / Unsure someone who was confirmed or suspected to have Coronavirus / COVID-19? Last Filed Vital Signs Reading Time Taken Comments Vital Sign 131/75 10/20/2019 12:43 AM CDT Blood Pressure 87 10/20/2019 12:43 AM CDT Pulse 35.8 C (96.4 F) 10/19/2019 11:39 PM CDT Temperature 14 10/20/2019 12:43 AM CDT Respiratory Rate 98% 10/20/2019 12:43 AM CDT Oxygen Saturation - - Inhaled Oxygen Concentration 95.3 kg (210 lb) 10/19/2019 11:40 PM CDT Weight 157.5 cm (5' 2") 10/19/2019 11:40 PM CDT Height 38.41 10/19/2019 11:40 PM CDT Body Mass Index Plan of [...] 12-LEAD STAT 07/20/2019 9:48 PM CDT after 10/27/2018 Results * Urinalysis (07/20/2019 10:00 PM CDT) Glucose, UA Negative Negative [facility] Bilirubin, UA Negative Negative [facility] Ketones, UA Negative Negative [facility] Specific 1.015 1.001 - 1.035 [place] gravity, UA [facility] Blood, UA Negative Negative [facility] pH, UA 7.0 5.0 - 8.5 [facility] Protein, UA Negative Negative [facility] Urobilinogen, <2.0 <2.0 [facility] Nitrite, UA Negative Negative [facility] Leukocyte Trace (A) Negative [place] esterase, UA [facility] Color, UA Yellow [facility] Appearance, UA Clear [facility] Specimen Urine Performing Organization Address City/[facility] [place] [address] PATHOLOGY AND GENOMIC [address] [place] [address] EMER[facility]Y CARE CENTER * hCG qualitative, urine screen (07/20/2019 10:00 PM CDT) hCG Negative [place] qualitative, Comment: [facility] [place] urine Sensitivity of HCG test: 25 EMERGENCY CARE mIU/mL CENTER Negative test results in patients suspected to be should be retested with a sample obtained 48-72 hours later, or by performing a quantitative assay. Specimen Urine Performing Organization Address [facility] [place] [address] PATHOLOGY AND GENOMIC [address] [place] [address] EMERGENCY CARE CENTER * XR Chest 2 Vw (07/20/2019 9:59 PM CDT) Specimen Narrative Performed At EXAMINATION: XR CHEST 2 VW [facility] CLINICAL HISTORY: 29 years Female CP COMPARISON: 07/19/2018 IMPRESSION: Lines/Tubes: None. Lungs/Pleura: The lungs are clear. No pleural effusion or pneumothorax. Heart/Mediastinum: The cardiomediastina l silhouette is normal. Bones: No acute osseous abnormality. [facility]-[id number] Procedure Note Interface, Radiology Results Incoming - 07/20/2019 10:03 PM CDT EXAMINATION: XR CHEST 2 VW CLINICAL HISTORY: 29 years Female CP COMPARISON: 07/19/2018 IMPRESSION: Lines/Tubes: None. Lungs/Pleura: The lungs are clear. No pleural effusion or pneumothorax. Heart/Mediastinum: The cardiomediastinal silhouette is normal. Bones: No acute osseous abnormality. [facility]-[id number] Performing Organization Address City/[facility] Ph one Number [facility] [address] [place] [address] * Estimated GFR (07/20/2019 9:58 PM CDT) Estimated GFR >=90 mL/min/1.73 m2 [place] Comment: ANGEL G[facility] EMERGENCY CARE Interpretation CENTER G1 >=90 Normal [...] published in 2014. Specimen Performing Organization Address [place]/[facility] [place] Ph one Number DEPARTMENT OF [address] [facility] [place] [address] PATHOLOGY AND GENOMIC [address] [facility] [place] [facility] [address] [place] [address] EMERGENCY CARE CENTER * Troponin, I-Stat (07/20/2019 9:58 PM CDT) Troponin, 0.01 0.00 - 0.08 ng/mL [place] I-Stat Comment: ANGEL GRAY In patients suspected [...] 0.020 ng/mL Specimen Blood Performing Organization Address City/State/Zipcode Ph one Number DEPARTMENT OF [address] [place] [address] PATHOLOGY AND GENOMIC [address] [facility] [address] [place] [address] EMERGENCY CARE CENTER * CBC with platelet and differential (07/20/2019 9:58 PM CDT) WBC 10.69 4.50 - 11.00 k/uL [facility] RBC 4.68 4.20 - 5.50 m/uL [facility] HGB 12.8 12.0 - 16.0 g/dL [facility] HCT 39.9 37.0 - 47.0 % [facility] MCV 85.3 82.0 - 100.0 fL [facility] MCH 27.4 27.0 - 34.0 pg [facility] MCHC 32.1 31.0 - 37.0 g/dL [facility] RDW - SD 42.4 37.0 - 55.0 fL [facility] MPV 9.1 8.8 - 13.2 fL [facility] Platelet count 304 150 - 400 k/uL [facility] Neutrophils 57.8 39.0 - 69.0 % [facility] Lymphocytes 32.3 25.0 - 45.0 % [facility] Monocytes 9.0 0.0 - 10.0 % [facility] Eosinophils 0.8 0.0 - 5.0 % [facility] Basophils 0.1 0.0 - 1.0 % [facility] Specimen Blood Performing Organization Address [facility] [place] Ph one Number DEPARTMENT OF [address] [place] [address] PATHOLOGY AND GENOMIC [address] [facility] [address] [facility] [address] [place] [address] EMERGENCY CARE CENTER * B natriuretic peptide (07/20/2019 9:58 PM CDT) BNP 26 0 - 100 pg/mL [facility] Specimen Blood Performing Organization Address [facility] [place] Ph one Number DEPARTMENT [address] [address] PATHOLOGY AND GENOMIC [address] [facility] [address] [facility] [address] [place] [address] EMERGENCY CARE CENTER * Comprehensive metabolic panel (07/20/2019 9:58 PM CDT) Sodium 136 135 - 148 mEq/L [facility] Potassium 3.8 3.5 - 5.0 mEq/L [facility] Chloride 101 98 - 112 mEq/L [facility] CO2 27 24 - 31 mEq/L [facility] Anion gap 8@ANIO 7 - 15 mEq/L [facility] BUN 18 6 - 20 mg/dL [facility] Creatinine 0.85 0.50 - 0.90 mg/dL [facility] Glucose 95 65 - 99 mg/dL [facility] Calcium 9.2 8.3 - 10.2 mg/dL [facility] Protein 7.8 6.3 - 8.3 g/dL [facility] Albumin 4.2 3.5 - 5.0 g/dL [facility] A/G ratio 1.2 0.7 - 3.8 [facility] Alkaline 76 35 - 104 U/L [place] phosphatase [facility] AST 18 10 - 35 U/L [facility] ALT 12 5 - 50 U/L [facility] Total bilirubin 0.2 0.0 - 1.2 mg/dL [facility] Specimen Blood Performing Organization Address City/State/Zipcode Ph one Number DEPARTMENT OF [address] [place] [address] PATHOLOGY [address] GENOMIC [address] [facility] ONEL ANGEL GRAY [address] [place] [address] EMERGENCY CARE CENTER * ECG 12 lead (07/20/2019 9:48 PM CDT) Ventricular 83 [facility] MUSE rate Atrial rate 83 [facility] MUSE ND interval 148 [facility] MUSE QRSD interval 64 [...] is n ot available. 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
--- OUTSIDE RECORDS SUMMARY | 2019-10-28 23:38 | XMS REPORT | Clinical Summary ---
Author Author ANDRÉS [facility] LabsSyringa General HospitalAnomaly Innovations [facility] Organization [facility] Address Unknown Phone Unavailable Care Team Providers Care Diaper Machine Tender Name Role Phone Pcp, No PCP Unavailable [...] Not on file Results Not on fileafter 10/27/2018 Insurance Payer Benefit Subscriber ID Type Phone Address Plan / Group MEDICAID - MEDICAID [place] MEDICAID xxxxxxxxx Medica id CARE [facility] Contracted [id number] [place] ([place]) [place] [address] Advance Directives For more information, please contact: [facility] [address] [place] [address] Date Inactivated Comments Code Status Date Activated 04/29/2016 8:03 PM Full Code 04/29/2016 9:32 AM This code status was determined by: Patient
--- OUTSIDE RECORDS SUMMARY | 2019-10-28 23:39 | XMS REPORT | Summary of Care ---
Author Author WEI Carias R.N. Organization Unknown Address Unknown Phone Unavailable Care Team Providers Care Milk Processing Worker Name Role Phone JAZMINE SANCHEZ M.D. Unavailable Unavailable TOM IVORY MD Unavailable Unavailable JAZMINE SANCHEZ DO Unavailable Unavailable MILAD PULIDO MD Unavailable Unavailable Unavailable Unavailable Functional Status Name [...] Details [Q] HEMOGLOBINOPATHY EVALUATION Date: 27-Sep-2019 [QL] CULTURE, URINE, ROUTINE Date: 25-Oct-2019 History of Appendectomy Completed Immunization Name Dates [...] (finding) Vital Signs Date Test Result Details :38 Systolic blood pressure 110 mm[Hg] Status: Comments : Location: [facility]; Position: Sitting Diastolic blood pressure 71 mm[Hg] Status: Comment s: Location: [facility]; Position: Sitting Body height 62 in Status: Weight 216.25 lb Status: Body mass index (BMI) [Ratio] 39.55 kg/m2 Status: Body surface area Derived from formula 1.98 m2 S tatus: Body temperature 98.4 f Status: Comments: Me thod: Temporal Heart Rate 90 /min Status: Respiratory rate 15 /min Status: :14 Systolic blood pressure 114 mm[Hg] Status: Comments : Location: [facility]; Position: Sitting Diastolic blood pressure 73 mm[Hg] Status: Comment s: Location: [facility]; Position: Sitting Body height 62 in Status: Weight 215 lb Status: Body mass index (BMI) [Ratio] 39.32 kg/m2 Status: Body surface area Derived from formula 1.97 m2 S tatus: Body temperature 98.4 f Status: Comments: Me thod: Temporal Heart Rate 90 /min Status: Respiratory rate 16 /min Status: Physical Findings 0 Status: Comments: Mauri tan Screen - How many times in the past yr have you had 5 (for M) or 4 (for F) or 4 (for all > 65yrs) or more drinks in a day? Physical Findings 0 Status: Comments: PH Q-9 Adult Depression Screening Results Date Description Value Details :52 [Q] OBSTETRIC PANEL W/FOURTH GENERATION HIV [...] ABSOLUTE NEUTROPHILS 7182 {cells/uL} (Normal) R suleman: [id number] ABSOLUTE LYMPHOCYTES 1551 {cells/uL} (Normal) R suleman: [...] For a dditional information, please refer to http://education.NextMedium/faq/TKF997 (This link is being provided for informational/educational [...] purpose. For additional information please refer t IncellDxttp://education.Universal Devices/faq/KJY941(This link is being provided for informational/educational purposes [...] at least two (2) copies of the ZOF3rggq. This result does not rule out carrier [...] in 117 1 in 1061 1 in [address] SUPPLEMENTAL INFORMATIONSpinal muscular atrophy (SMA) is a family of disorders thatare characterized by progressive muscle weakness due to lossof anterior horn cells. A deletion of exon 7 in the MZP9krkw causes 95% of SMA. New mutations account forapproximately 2% of SMA. SMN2 genes are able to produce aprotein identical to that of the SMN1 gene, but at a reduced(10-20%) capacity. As a result the number of copies of TPA6lra been shown to influence the severity of the disease.This assay detects the copy number of the two common genes(SMN1 and SMN2) recommended by the [place] [employer] ofMedical Genetics (ACMG) for population-based SMA carrierscreening. Health care providers, please contact your local [employer]' genetic counselor or call [employer] at [employer] ([phone]) for assistance withthe interpretation of these results. [...] its analytical performancecharacteristics have been determined by [facility]. It has not beencleared or approved by FDA. This assay has been validatedpursuant to the CLIA regulations and is used for clinicalpurposes. :52 [QL] URINALYSIS, COMPLETE COLOR DARK YELLOW [...] (Normal) Range : NONE SEEN :52 [Q] HJJSFNS-8-UWAATUPDU DEHYDROGENASE, QUANT. JSJJOZP-5-SWHZDVYOW DEHYDROGENASE 20.2 {U/g_Hgb } Range: 7.0-20.5 :52 [...] Before After Negative Rate Test Result Ashkenazi Latter Day 94% 1 in 24 1 in 400Non- 88% 1 in 25 1 in 208CaucasianHispanic-Malawian 72% 1 in 46 1 in 164African-Malawian 65% 1 in 65 1 in 186Asian-Malawian 49% 1 in 94 1 in 184Other insufficient data available Health care providers, please contact your local mi[employer]' genetic counselor or call [employer] at [employer] ([phone]) for assistance withinterpretation of these results. MUTATIONS/POLYMORPHISMS SEE NOTE Comments : MUTATIONS ANALYZED: G85E (c.254G>A) S549N (c.1646G>A)394delTT (c.262delTT) G551D (c.1652G>A)R117H (c.350G>A) R553X (c.1657C>T)621+1 G>T (c.489+1G>T) R560T (c.1679G>C)711+1 G>T (c.579+1G>T) 1898+1 G>A (c.1766+1G>A)1078delT (c.948delT) 2183AA>G (c.2051delAAinsG)R334W (c.1000C>T) 2184delA (c.2052delA)R347H (c.1040G>A) 2789+5 G>A (c.2657+5G>A)R347P (c.1040G>C) 3120+1 G>A (c.2988+1G>A)A455E (c.1364C>A) O2799N (c.3484C>T)T367zgi (c.1519delATC) 3659delC (c.3528delC)N850xtf (c.1521delCTT) 3849+10kb C>T (c.8894+22722Y>T)V520F (c.1558G>T) 3876delA (c.3744delA)1717-1 G>A (c.1585-1G>A) 3905insT (c.3773insT)G542X (c.1624G>T) V9010E (c.3846G>A)S549R (c.1645A>C or c.1647T>G) R4109Q (c.3909C>G) This assay detects thirty-two mutations, including thetwenty-three core mutations recommended by the AmericanCollege of Medical Genetics (ACMG) and the [place] Congressof Obstetricians and Gynecologists (ACOG) forpopulation-based CF [...] submitted clinical informationreviewed by Mariano Patel, Ph.D., [facility], [facility]. For additional information, please refer tohttp://education.HEXIO.Roseonly/faq/cfscreen(T his link is being provided for informational/educationalpurposes only.) This test was developed and its analytical performancecharacteristics have been determined by [facility]. It has not beencleared or approved by FDA. This assay has been validatedpursuant to the CLIA regulations and is used for clinicalpurposes. :52 [QL] CULTURE, URINE, ROUTINE CULTURE (Abnormal) Comments: CULTUR E, URINE, ROUTINE Micro Number: [id number] Test Status: Final Specimen Source: URINE Specimen [...] cefdinir, cefpodoxime, cefprozil, cefuroxime, cephalexin and loracarbef. [id number]:00 . [facility] - PAP w/reflex HPV if ASC-US or above Case Click ImageLink butt on for report. (Abnormal) Plan of Care Name Dates Details Planned Observations Planned Goals not documented Interventions Provided Labs/Procedures/Imaging* [QL] CULTURE, URINE, ROUTINE; To Be Done: 25 Oct 2019 Instructions Name Dates Details Instructions not documented Encounters Appointment; JAZMINE SANCHEZ M.D. Encounter Diagnosis: Problem not documented On: 10-Sep-2019 13:00 Appointment; JAZMINE SANCHEZ M.D. Encounter Diagnosis: Problem not documented On: 24-Sep-2019 9:45 Appointment; [facility], 1 Encounter Diagnosis: Problem not documented On: 24-Sep-2019 15:30 Appointment; JAZMINE SANCHEZ M.D. Encounter Diagnosis: Problem not documented On: 27-Sep-2019 14:00 Appointment; JAZMINE SANCHEZ M.D. Encounter Diagnosis: Problem not documented On: 25-Oct-2019 13:30
--- OUTSIDE RECORDS SUMMARY | 2019-10-28 23:39 | XMS REPORT | Summary of Care ---
Author WEI Darling M.D. Organization Unknown Address Unknown Phone Unavailable Care Team Providers Care Card Grinder Helper Name Role Phone JAZMINE SANCHEZ M.D. Unavailable [...] Dates Details [Q] HEMOGLOBINOPATHY EVALUATION Date: 27-Sep-2019 History of Appendectomy Completed Immunization Name Dates [...] (finding) Vital Signs Date Test Result Details [id number] Systolic blood pressure 110 mm[Hg] Status: Comments : Location: [facility]; Position: Sitting Diastolic blood pressure 71 mm[Hg] Status: Comment s: Location: [facility]; Position: Sitting Body height 62 in Status: Weight 216.25 lb Status: Body mass index (BMI) [Ratio] 39.55 kg/m2 Status: Body surface area Derived from formula 1.98 m2 S tatus: Body temperature 98.4 f Status: Comments: Mi thod: Temporal Heart Rate 90 /min Status: Respiratory rate 15 /min Status: Results Date Description Value Details [id number] [Q] OBSTETRIC PANEL W/FOURTH GENERATION HIV WHITE [...] ABSOLUTE NEUTROPHILS 7182 {cells/uL} (Normal) R suleman: 2784-1525 ABSOLUTE LYMPHOCYTES 1551 {cells/uL} (Normal) R suleman: [...] For a dditional information, please refer to http://education.Bullet News Ltd/faq/CKW873 (This link is being provided for informational/educational [...] purpose. For additional information please refer t NXT-IDttp://TDX.dreamsha.re/faq/AUG345(This link is being provided for informational/educational purposes [...] at least two (2) copies of the RAD5irbg. This result does not rule out carrier [...] in 117 1 in 1061 1 in 32049 SUPPLEMENTAL INFORMATIONSpinal muscular atrophy (SMA) is a family of disorders thatare characterized by progressive muscle weakness due to lossof anterior horn cells. A deletion of exon 7 in the FEC1wvtr causes 95% of SMA. New mutations account forapproximately 2% of SMA. SMN2 genes are able to produce aprotein identical to that of the SMN1 gene, but at a reduced(10-20%) capacity. As a result the number of copies of KGM8zwg been shown to influence the severity of the disease.This assay detects the copy number of the two common genes(SMN1 and SMN2) recommended by the [place] College ofMedical Genetics (ACMG) for population-based SMA carrierscreening. Health care providers, please contact your local [employer]' genetic counselor or call [employer] at [employer] ([phone]) for assistance withthe interpretation of these results. [...] its analytical performancecharacteristics have been determined by [facility]. It has not beencleared or approved by FDA. This assay has been validatedpursuant to the CLIA regulations and is used for clinicalpurposes. [id number] [QL] URINALYSIS, COMPLETE COLOR DARK YELLOW (Normal) [...] (Normal) Range : NONE SEEN :52 [Q] XKOBHXO-5-RLTOVLKFB DEHYDROGENASE, QUANT. ZWHDDAS-1-FHWTYBHDY DEHYDROGENASE 20.2 {U/g_Hgb } Range: 7.0-20.5 :52 [...] Before After Negative Rate Test Result Ashkenazi Spiritism 94% 1 in 24 1 in 400Non- 88% 1 in 25 1 in 208CaucasianHispanic-Canadian 72% 1 in 46 1 in 164African-Canadian 65% 1 in 65 1 in 186Asian-Canadian 49% 1 in 94 1 in 184Other insufficient data available Health care providers, please contact your local [employer]' genetic counselor or call [employer] at [employer] ([phone]) for assistance withinterpretation of these results. MUTATIONS/POLYMORPHISMS SEE NOTE Comments : MUTATIONS ANALYZED: G85E (c.254G>A) S549N (c.1646G>A)394delTT (c.262delTT) G551D (c.1652G>A)R117H (c.350G>A) R553X (c.1657C>T)621+1 G>T (c.489+1G>T) R560T (c.1679G>C)711+1 G>T (c.579+1G>T) 1898+1 G>A (c.1766+1G>A)1078delT (c.948delT) 2183AA>G (c.2051delAAinsG)R334W (c.1000C>T) 2184delA (c.2052delA)R347H (c.1040G>A) 2789+5 G>A (c.2657+5G>A)R347P (c.1040G>C) 3120+1 G>A (c.2988+1G>A)A455E (c.1364C>A) P8376G (c.3484C>T)X401zki (c.1519delATC) 3659delC (c.3528delC)U476iqs (c.1521delCTT) 3849+10kb C>T (c.3717+26892X>T)V520F (c.1558G>T) 3876delA (c.3744delA)1717-1 G>A (c.1585-1G>A) 3905insT (c.3773insT)G542X (c.1624G>T) W0210E (c.3846G>A)S549R (c.1645A>C or c.1647T>G) P1026V (c.3909C>G) This assay detects thirty-two mutations, including thetwenty-three core mutations recommended by the AmericanCollege of Medical Genetics (ACMG) and the [place] Congressof Obstetricians and Gynecologists (ACOG) forpopulation-based CF [...] submitted clinical informationreviewed by Mariano Patel, Ph.D., [facility], [facility]. For additional information, please refer tohttp://education.dreamsha.re/faq/cfscreen(T his link is being provided for informational/educationalpurposes only.) This test was developed and its analytical performancecharacteristics have been determined by [facility]. It has not beencleared or approved by FDA. This assay has been validatedpursuant to the CLIA regulations and is used for clinicalpurposes. :52 [QL] CULTURE, URINE, ROUTINE CULTURE (Abnormal) Comments: CULTUR E, URINE, ROUTINE Micro Number: [id number] Test Status: Final Specimen Source: URINE Specimen [...] cefdinir, cefpodoxime, cefprozil, cefuroxime, cephalexin and loracarbef. [id number]-[id number]:00 . [facility] - PAP w/reflex HPV if ASC-US or above Case Click ImageLink butt on for report. (Abnormal) [id number] [QL] CULTURE, URINE, ROUTINE CULTURE Comments: CULTUR E, URINE, ROUTINE Micro Number: [id number] Test Status: Final Specimen Source: URINE Specimen Quality: Adequate Result: Multiple organisms present, each less than 10,000 CFU/mL. These organisms, commonly found on external and internal genitalia, are considered to be colonizers. No further testing performed. Plan of Care Name Dates Details Planned Observations Planned Goals not documented Planned Encounters Appointment; JAZMINE SANCHEZ M.D. On: 29-Nov-2019 13:00 Instructions Name Dates Details Instructions not documented [...]
--- OUTSIDE RECORDS SUMMARY | 2019-10-28 23:39 | XMS REPORT | Summary of Care ---
Author Author WEI SANCHEZ M.D. Organization Unknown Address Unknown Phone Unavailable Care Team Providers Care Poultry Slaughterer Name Role Phone JAZMINE SANCHEZ M.D. Unavailable Unavailable DARYA AYALA, TOM Unavailable Unavailable JAZMINE SANCHEZ DO Unavailable Unavailable STEVEN ALARCON MD, MIALD Unavailable Unavailable Unavailable Unavailable Functional Status Name [...] tatus: Body temperature 98.4 f Status: Comments: Sc thod: Temporal Heart Rate 90 /min Status: Respiratory rate 16 /min Status: Results Date Description Value Details :52 [Q] [...] ABSOLUTE NEUTROPHILS 7182 {cells/uL} (Normal) R suleman: 2921-3309 ABSOLUTE LYMPHOCYTES 1551 {cells/uL} (Normal) R suleman: [...] For a dditional information, please refer to http://education.NuPotential/faq/ZHM632 (This link is being provided for informational/educational [...] purpose. For additional information please refer t Evident.iottp://education.ChronoWake/faq/JEG521(This link is being provided for informational/educational purposes [...] at least two (2) copies of the LTJ5wqnr. This result does not rule out carrier [...] in 117 1 in 1061 1 in 49475 SUPPLEMENTAL INFORMATIONSpinal muscular atrophy (SMA) is a family of disorders thatare characterized by progressive muscle weakness due to lossof anterior horn cells. A deletion of exon 7 in the DXM6wlzy causes 95% of SMA. New mutations account forapproximately 2% of SMA. SMN2 genes are able to produce aprotein identical to that of the SMN1 gene, but at a reduced(10-20%) capacity. As a result the number of copies of CXF5had been shown to influence the severity of the disease.This assay detects the copy number of the two common genes(SMN1 and SMN2) recommended by the [place] College ofMedical Genetics (ACMG) for population-based SMA carrierscreening. Health care providers, please contact your local [employer]' genetic counselor or call [employer] at [employer] ([phone]) for assistance withthe interpretation of these results. [...] its analytical performancecharacteristics have been determined by [facility]. It has not beencleared or approved by FDA. This assay has been validatedpursuant to the CLIA regulations and is used for clinicalpurposes. [id number] [QL] URINALYSIS, COMPLETE COLOR DARK YELLOW (Normal) [...] (Normal) Range : NONE SEEN :52 [Q] JPWCMPI-4-MONMKYQWP DEHYDROGENASE, QUANT. HYIEQUA-3-DHPHKVNZH DEHYDROGENASE 20.2 {U/g_Hgb } Range: 7.0-20.5 :52 [...] Before After Negative Rate Test Result Ashkenazi Mandaeism 94% 1 in 24 1 in 400Non- 88% 1 in 25 1 in 208CaucasianHispanic-Syrian 72% 1 in 46 1 in 164African-Syrian 65% 1 in 65 1 in 186Asian-Syrian 49% 1 in 94 1 in 184Other insufficient data available Health care providers, please contact your local [employer]' genetic counselor or call [employer] at [employer] ([phone]) for assistance withinterpretation of these results. MUTATIONS/POLYMORPHISMS SEE NOTE Comments : MUTATIONS ANALYZED: G85E (c.254G>A) S549N (c.1646G>A)394delTT (c.262delTT) G551D (c.1652G>A)R117H (c.350G>A) R553X (c.1657C>T)621+1 G>T (c.489+1G>T) R560T (c.1679G>C)711+1 G>T (c.579+1G>T) 1898+1 G>A (c.1766+1G>A)1078delT (c.948delT) 2183AA>G (c.2051delAAinsG)R334W (c.1000C>T) 2184delA (c.2052delA)R347H (c.1040G>A) 2789+5 G>A (c.2657+5G>A)R347P (c.1040G>C) 3120+1 G>A (c.2988+1G>A)A455E (c.1364C>A) Z3131K (c.3484C>T)P267mty (c.1519delATC) 3659delC (c.3528delC)P276fik (c.1521delCTT) 3849+10kb C>T (c.3717+16768N>T)V520F (c.1558G>T) 3876delA (c.3744delA)1717-1 G>A (c.1585-1G>A) 3905insT (c.3773insT)G542X (c.1624G>T) G0885V (c.3846G>A)S549R (c.1645A>C or c.1647T>G) K8309E (c.3909C>G) This assay detects thirty-two mutations, including thetwenty-three core mutations recommended by the AmericanCollege of Medical Genetics (ACMG) and the [place] Congressof Obstetricians and Gynecologists (ACOG) forpopulation-based CF [...] submitted clinical informationreviewed by Mariano Patel, Ph.D., [facility], [facility]. For additional information, please refer tohttp://education.ChronoWake/faq/cfscreen(T his link is being provided for informational/educationalpurposes only.) This test was developed and its analytical performancecharacteristics have been determined by [facility]. It has not beencleared or approved by FDA. This assay has been validatedpursuant to the CLIA regulations and is used for clinicalpurposes. [id number] [QL] CULTURE, URINE, ROUTINE CULTURE (Abnormal) Comments: CULTUR E, URINE, ROUTINE Micro Number: [id number] Test Status: Final Specimen Source: URINE Specimen [...] cefdinir, cefpodoxime, cefprozil, cefuroxime, cephalexin and loracarbef. [id number]:00 . [facility] - PAP w/reflex HPV if [...] Problem not documented On: 24-Sep-2019 9:45 Appointment; [facility] 1 Encounter Diagnosis: Problem not documented On: 24-Sep-2019 15:30 Appointment; JAZMINE SANCHEZ M.D. Encounter Diagnosis: Problem not documented On: 27-Sep-2019 14:00
--- OUTSIDE RECORDS SUMMARY | 2019-10-28 23:39 | XMS REPORT | Continuity of Care Document ---
Author Author [facility] t Organization [facility] Address Formerly [facility] [place] [address] Phone Unavailable Care Team Providers Care Restaurant Area Director Name Role Phone NONSTAFF PCP Unavailable JAZMINE SANCHEZ M.D. Attphys Unavailable Gabbi Alexander DO Attphys Oscar WICK Attphys Unavailable [facility] Attphys Unavailable Rama Leyva MD Attphys LEO PADRON Attphys Unavailable DR Barbara GRANT Attphys Unavailable Sidney LACY Attphys Unavailable JAE ERVIN Attphys Unavailable ADDIE WHITE Attphys Unavailable CRUZ KANG Attphys Unavailable HENNA FARFAN Attphys Unavailabl DR Barbara Crowleyphys Unavailable HENNA FARFAN Unavaildulce maria e Payers Payer Name Policy Type Policy Number Effective Date Expiration Date S lisa 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 [facility] Abdominal pain during Problem Active [facility] History of allergy History of allergy Problem Resolved [facility] History of bronchitis History of bronchitis Problem Resolved [facility] History of Kidney mass History of Kidney mass Problem Resolved [facility] Visit for gynecologic examination Visit for gynecologic examinat ion Problem Active [facility] Problem Active [facility] Nausea Nausea Problem Active [facility] UTI (urinary tract infection) UTI (urinary tract infection) Problem Active [facility] Allergies, Adverse Reactions, Alerts Allergy Name Allergy Type Status Severity Reaction(s) Onset Date Inacti ve Date Treating Clinician Comments Source Azithromycin Allergy to substance Active CHEST TIGHTNESS 2019-06-06 00:00:00 [facility] Azithromycin Propensity to adverse reactions to drug Active 2018-09-21 00:00:00 States makes chest feel "tihgt" Onel Macias Azithromycin Propensity to adverse reactions Active 201 11-24-01 00:00:00 [facility] Ibuprofen Allergy to substance Active 2018-02-15 00:00:00 [facility] Sulfamethoxazole Allergy to substance Active 2018-02-15 00: 00:00 [facility] Trimethoprim Allergy to substance Active 2018-02-15 00:00:0 0 [facility] Metronidazole Propensity to adverse reactions Active 05-02-16 00:00:00 Hives, sob [facility] Sulfamethoxazole-Trimethoprim Propensity to adverse reactions Active 2018-02-01 00:00:00 [facility] Egg Propensity to adverse reactions to drug Active 2017-10-31 00:00:00 Onel Macias Icz-Xmjxmllxegtbi-Nxsi-Buffers Propensity to adverse reactions to d rug Active 2017-09-17 00:00:00 Mando garcia Sulfamethoxazole-Trimethoprim Propensity to adverse reactions to dr rollins Active 2017-09-17 00:00:00 Mando garcia Ibuprofen Propensity to adverse reactions to drug Active 2017-09-17 00:00:00 [facility] Sulfamethoxazole-Trimethoprim Propensity to adverse reactions to dr rollins Active Swelling 2017-09-13 00:00:00 Onel Urenaist Ibuprofen Propensity to adverse reactions to drug Active 2017-08-26 00:00:00 Lip swelling [facility] Ibuprofen Propensity to adverse reactions Active 08-26 00:00:00 Lip swelling [facility] Bactrim Allergy to drug (finding) Active [facility] ibuprofen Allergy to drug (finding) Active [facility] Zithromax Allergy to drug (finding) Active [facility] Family History Family Member Diagnosis Comments Start Date Stop Date Source Grandmother Family history of hypertension [facility] Grandmother Family history of thyroid disease [facility] Grandmother Family history of diabetes mellitus [facility] aunt Family history of thyroid disease [facility] Father Family history of hypertension [facility] Father Family history of thyroid disease [facility] Social History Social Habit Start Date Stop Date Quantity Comments Source ASSERTION 2019-08-18 00:00:00 [place] Exposure to SARS-CoV-2 (event) Not sure [facility] Sex Assigned At [facility] Alcohol intake 2019-10-19 00:00:00 2019-10-19 00:00:00 Current non-drinker of alcohol (finding) [facility] Mandaen Alcohol Comment 2016-04-22 00:00:00 2016-04-22 00:00:00 rare [facility] Smoking Status Start Date Stop Date Source Never smoker [facility] Medications Ordered Medication Name Filled Medication Name Start Date Stop Da te Current Medication? Ordering Clinician Indication Dosage Frequency Signature (SIG) Comments Components Source Promethazine HCl - 25 MG Oral Tablet Promethazine HCl - 25 M G Oral Tablet 2019-10-02 00:00:00 Yes JAZMINE SANCHEZ M.D. TAKE 1 TABLET EVERY 4 TO 6 HOURS NEEDED FOR NAUSEA. [facility] Nitrofurantoin Monohyd Macro 100 MG Oral Capsule Nitro furantoin Monohyd Macro 100 MG Oral Capsule 2019-09-30 00:00:00 Yes JAZMINE SANCHEZ M.D. Q0.5D TAKE 1 CAPSULE TWICE DAILY UNTIL GONE. [facility] Doxylamine-Pyridoxine 10-10 MG Oral Tablet Delayed Rel ease Doxylamine-Pyridoxine 10-10 MG Oral Tablet Delayed Release 2019-09-27 00:00:00 Yes Nelson SANCHEZ M.D. TAKE 1 TABLET BY MOUTH DAILY NEEDED [facility] traMADoL (ULTRAM) 50 mg [...] 21:52:00 Yes 500 Every 6 H ours [facility] Dicyclomine Hcl (Bentyl) 10 Mg/1 Ml AMPUL Dicyclomine Hcl (Bentyl) 10 Mg/1 Ml AMPUL 2019-06-06 20:57:00 Yes 10 Four Times Daily f or Pain [facility] Famotidine (Pepcid) 20 Mg TABLET Famotidine (Pepcid) 20 Mg T ABLET 2019-06-06 20:57:00 Yes 20 Twice A Day [facility] albuterol HFA (VENTOLIN HFA) 90 mcg/actuation inhaler 2018-09-18 00:00:00 2019-09-18 23:59:00 No 2{puff} Inhal e 2 puffs by mouth via inhaler every 4 (four) hours as needed for Wheezing. [facility] metoclopramide (REGLAN) 10 mg tablet 2017-09-25 00:00:00 Yes Migraine without status migrainosus, not intractable, unspecified migraine type 10mg Take 1 tablet by mouth 3 times daily as needed for Other (headache). [facility] cetirizine (ZYRTEC) 10 mg tablet 2017-09-17 00:00:00 Yes Allergic reaction, initial encounter 10mg QD Take 1 tablet by mouth daily. [facility] albuterol HFA (VENTOLIN HFA) 90 mcg/actuation inhaler 2017-02-21 00:06:30 Yes 1{puff} Inhale 1 puff b y mouth via inhaler every 6 (six) hours as needed for Wheezing. [facility] fluticasone (FLONASE) 50 mcg/actuation nasal spray 2017-02 00:06:30 Yes 1{spray} QD 1 spray by Nasal route daily. [facility] benzonatate (TESSALON) 100 MG capsule 2017-02-21 00:06:30 Y es 100mg Take 100 mg by mouth 3 (three) times daily as needed for Cough. [facility] B-complex with vitamin C tablet 2017-02-21 00:06:30 Yes 1{tbl} QD Take 1 tablet by mouth daily. [facility] cetirizine (ZYRTEC) 10 MG tablet 2017-02-21 00:06:30 Yes 10mg QD Take 10 mg by mouth daily. [facility] inhalational spacing device (AEROCHAMBER) Spcr 2017-02-21 00:00: 00 Yes For use with albuterol inhaler. [facility] cholecalciferol, vitamin D3, 50,000 unit Tab 2016-04-22 10:36:27 Yes 75327U Q7D Take 50,000 Units by mouth once a week. [facility] levonorgestrel-ethinyl estradiol (NORDETTE) 0.15-0.03 mg per tablet 2016-04-22 10:35:41 Yes 1{tbl} QD Take 1 tablet by mouth daily. [facility] methylPREDNISolone (MEDROL) 4 MG tablet 2016-04-20 00:00:00 Yes 4mg Q.[id number] Take 4 mg by mouth 3 (three) times daily. [facility] Vitamins TABS Vitamins TABS Yes M.DGuido [facility] Vitamin D TABS Vitamin D TABS Yes M.Charisma [facility] Multiple Vitamins TABS Multiple Vitamins TABS Yes M.Charisma [facility] Vital Signs Vital Name Observation Time Observation Value Comments Source Systolic blood pressure 2019-10-25 13:38:00 110 mm[Hg] Loca tion: RUE; Position: Sitting [facility] Diastolic blood pressure 2019-10-25 13:38:00 71 mm[Hg] Loc ation: RUE; Position: Sitting [facility] Body height 2019-10-25 13:38:00 62 [in_us] [facility] Weight 2019-10-25 13:38:00 216.25 [lb_av] [facility] Body mass index (BMI) [Ratio] 2019-10-25 13:38:00 39.55 kg/m2 [facility] Body temperature 2019-10-25 13:38:00 98.4 [degF] Method: Temporal [facility] Heart Rate 2019-10-25 13:38:00 90 /min [facility] Respiratory rate 2019-10-25 13:38:00 15 /min [facility] Systolic blood pressure 2019-10-20 00:43:45 131 mm[Hg] [facility] Diastolic blood pressure 2019-10-20 00:43:45 75 mm[facility]Hg] [facility] 2019-10-20 00:43:45 87 /min [facility]anda[facility] Respiratory rate 2019-10-20 00:43:45 14 /min [facility] Oxygen saturation in Arterial blood by Pulse oximetry 10-19 00:43:45 98 /min [facility] Body height 2019-10-19 23:40:00 157.5 cm [facility] Body weight 2019-10-19 23:40:00 95.255 [facility] BMI 2019-10-19 23:40:00 38.41 kg/m2 [facility] temperature 2019-10-19 23:39:05 35.78 [facility] Temperature 2019-10-17 22:17:00 100.1 [degF] [facility] Weight 2019-10-17 20:55:00 214 [lb_av] [facility] BMI (Body Mass Index) 2019-10-17 20:55:00 39.1 kg/m2 [facility] Systolic blood pressure 2019-09-27 14:14:00 114 mm[Hg] Loca tion: RUE; Position: Sitting [facility] Diastolic blood pressure 2019-09-27 14:14:00 73 mm[Hg] Loc ation: RUE; Position: Sitting [facility] Body height 2019-09-27 14:14:00 62 [in_us] [facility] Weight 2019-09-27 14:14:00 215 [lb_av] [facility] Body mass index (BMI) [Ratio] 2019-09-27 14:14:00 39.32 kg/m2 [facility] Body temperature 2019-09-27 14:14:00 98.4 [degF] Method: Temporal [facility] Heart Rate 2019-09-27 14:14:00 90 /min [facility] Respiratory rate 2019-09-27 14:14:00 16 /min [facility] Systolic blood pressure 2019-09-10 13:18:00 116 mm[Hg] Loca tion: LUE; Position: Sitting [facility] Diastolic blood pressure 2019-09-10 13:18:00 75 mm[Hg] Loc ation: LUE; Position: Sitting [facility] Body height 2019-09-10 13:18:00 62 [in_us] [facility] Weight 2019-09-10 13:18:00 215.5 [lb_av] [facility] Body mass index (BMI) [Ratio] 2019-09-10 13:18:00 39.42 kg/m2 [facility] Body temperature 2019-09-10 13:18:00 98.2 [degF] Method: [facility] Heart Rate 2019-09-10 13:18:00 89 /min Location: L Brachial Artery; [facility] Respiratory rate 2019-09-10 13:18:00 16 /min Quality: Normal U [facility] O2 SAT 2019-09-10 13:18:00 100 % Source: [facility] Procedures Procedure Date / Time Performed Performing Clinician Sour e [QL] CULTURE, URINE, ROUTINE 2019-10-25 00:00:00 [facility] [Q] OBSTETRIC PANEL W/FOURTH GENERATION HIV 2019-09-27 00:00:00 [facility] [QL] CULTURE, URINE, ROUTINE 2019-09-27 00:00:00 [facility] [QL] URINALYSIS, COMPLETE 2019-09-27 00:00:00 [facility] [Q] HEMOGLOBINOPATHY EVALUATION 2019-09-27 00:00:00 [facility] [Q] [id number] DEHYDROGENASE, QUANT. 2019-09-27 00:00: 00 [facility] [QL] CYSTIC FIBROSIS SCREEN 2019-09-27 00:00:00 [facility] [Q] SMA CARRIER SCREEN 2019-09-27 00:00:00 [facility] . [facility] - PAP w/reflex HPV if ASC-US or above 2019-09-27 00:00: 00 [facility] [QL] ABO GROUP AND RH TYPE 2019-09-10 00:00:00 [facility] [QL] ANTIBODY SCREEN, RBC W/REFL ID, TITER AND AG 2019-09-10 00: 00:00 [facility] [QL] HCG, TOTAL, QN 2019-09-10 00:00:00 [facility] URINALYSIS 2019-07-20 22:00:00 Jesse Leyva HCG QUALITATIVE, URINE SCREEN 2019-07-20 22:00:00 Neri Leyva XR CHEST 2 VW 2019-07-20 21:59:34 Jesse Leyva HC COMPLETE BLD COUNT W/AUTO DIFF 2019-07-20 21:58:00 Oscar Leyva COMPREHENSIVE METABOLIC PANEL 2019-07-20 21:58:00 Neri Leyva TROPONIN, I-STAT 2019-07-20 21:58:00 Jesse Leyva B NATRIURETIC PEPTIDE 2019-07-20 21:58:00 Jesse Leyva ESTIMATED GFR 2019-07-20 21:58:00 Jesse Leyva ECG 12-LEAD 2019-07-20 21:48:41 Jesse Leyva NJX AA&/STRD TRIGEMINAL NRV 2019-02-09 00:00:00 [facility] History of Appendectomy [facility] Plan of Care Planned Activity Planned Date Details Comments Source Future Scheduled Test 2019-12-19 00:00:00 IMM Influenza Seas onal Dec to May (>/= 19 yrs) [code = IMM Influenza Seasonal Dec to May (>/= 19 yrs)] [facility] Future Scheduled Test 2019-10-19 00:00:00 INFLUENZA VACCINE [code = INFLUENZA VACCINE] Onel Macias Future Scheduled Test 2011 00:00:00 Screening for gela sinha neoplasm of cervix (procedure) [code = 783263814] [facility] Scheduled Test 2011 00:00:00 Screening for gela sinha neoplasm of cervix (procedure) [code = 589578276] [facility] Future Appointment 2019-11-29 13:00:00 Ahmet LUCERO [facility] Instructions [facility] Encounters Start Date/Time End Date/Time Encounter Type [facility] Encounter ID Source 2019-10-25 13:30:00 2019-10-25 13:30:00 Appointment; JAZMINE SANCHEZ M. D. NGUYEN, HA, M.D. [facility] Multispecialty [facility], [address] [id number] [facility] 2019-10-19 00:00:00 2019-10-20 00:00:00 Emergency SYBIL ALEXANDER [facility] 064 [id number] [facility] 2019-10-17 20:59:00 2019-10-17 20:59:00 Registered Emergency Room 1 DANIEL WICK [facility] [id number] [facility] 2019-09-27 14:00:00 2019-09-27 14:00:00 Appointment; JAZMINE SANCHEZ M. D. NGUYEN, HA, M.D. [facility] [id number] [facility] 2019-09-24 15:30:00 2019-09-24 15:30:00 Appointment; CISCO, RM1 NEO-ASAD, RM1 [facility] [id number] [facility] 2019-09-24 09:45:00 2019-09-24 09:45:00 Appointment; JAZMINE SANCHEZ M. D. NGUYEN, HA, M.D. [facility] [id number] [facility] 2019-09-10 13:00:00 2019-09-10 13:00:00 Appointment; JAZMINE SANCHEZ M. D. NGUYEN, HA, M.D. [facility] Multispecialty - [facility], [address] [id number] [facility] 2019-09-07 20:21:00 2019-09-07 20:21:00 Emergency E [facility]NW [facility]NW 7503 [facility] 2019-08-11 20:51:00 2019-08-11 20:51:00 Emergency E MHNW [facility]NW 0145 [facility] 2019-07-20 00:00:00 2019-07-20 00:00:00 Emergency NERI LEYVA [facility] 064 [id number] Onel Mandaen 2019-06-17 21:32:00 2019-06-17 22:00:00 Departed Emergency Room [facility] [id number] [facility] 2019-06-06 19:32:00 2019-06-06 21:10:00 Departed Emergency Room [facility] [place] [id number] [facility] 2019-03-29 23:34:00 2019-03-30 01:20:00 Departed Emergency Room [facility] [id number] [facility] 2019-02-09 17:57:00 2019-02-09 19:59:00 Departed Emergency Room [facility] [id number] [facility] 2018-06-01 15:41:00 2018-06-01 16:16:00 Emergency E [facility]AD [facility] [id number] [facility] 2018-02-15 22:43:00 2018-02-16 00:19:00 Departed Emergency Room 1 AMANDA LACY [facility] [id number] [facility] 2017-09-25 20:20:05 2017-09-25 20:20:05 Emergency [facility] [id number] [facility] 2017-09-17 10:30:25 2017-09-17 10:30:25 Emergency [facility] [id number] [facility] Results Test Description Test Time Test Comments Results Result Comments Source [QL] CULTURE, URINE, ROUTINE 2019-10-25 14:46:00 Test Item CULTURE (test code = CULTURE) See Comment CULTURE, URINE, ROUTINE Micro Number: [id number] Test Status: Final Specimen Source: URINE Specimen Quality: Adequate Result: Multiple organisms present, each less than 10,000 CFU/mL. These organisms, commonly found on external and internal genitalia, are considered to be colonizers. No further testing performed. [facility] [place] [id number] 23:36:00 [place] [address] Patient Name: WEI TRINIDAD MR #: [id number] : 1990 Age/Sex: 29/F Req #: [id number] Adm Physician: Ordered by: DANIEL WICK MD Report #: [id number] Location: [facility] Room/Bed: Procedure: [id number] [facility]/ FIOR DECKER OB Exam Date: 10/17/19 Exam Time: 2224 REPORT STATUS: Signed EXAM: First Trimester Obstetric Pelvic Ultrasound INDICATION: Abdominal pain, positive pre gnancy test COMPARISON: None TECHNIQUE: Grayscale transverse and sagit isabel transabdominal and transvaginal images were obtained of the pelvis. Transv aginal imaging was medically necessary to better evaluate the endometrium, adn exa, and fetus. CLINICAL HISTORY: 29 year old Last menstrual per iod: 08/04/2019 FINDINGS: Uterus: Orientation: Normal Siz e: 9 x 7.2 x 7.3 cm, enlarged Mass: None Cervix: Nabothian cysts G estational Sac: Location: Intrauterine Average sac diameter: 3.8 c m Estimated sonographic GA: 9 weeks 0 days Appearance: Normal in contour Subchorionic hemorrhage: None Yolk sac: Not seen Embryo/Fetu s: Hood rump length: 4.41 cm Estimated sonographic GA: 11 weeks 5 days Cardiac activity: 191 bpm, elevated Right ovary Size: 3 .7 x 1.7 x 1.2 cm Mass/Cyst: None Left ovary Size: 2.4 x 1.6 x 1.5 cm Mass/Cyst: None Cul-de-sac: No free fluid IMPRESSION: 1. Viable intrauterine : Routine followup. Elevated heart rate, 191 beats per minute. 2. Estimated sonographic gestational age: 11 weeks 5 days CLASSIFICATION Viable: ca n potentially result in a liveborn baby Visualized embryo with FHT Nonv iable: Findings diagnostic of failure * Ectopic * [...] Trimester N Engl J Med 2013;369:1443-51. DOI: [id number] Signed by: Dash Palma DO on 10/17/2019 11:40 PM Dictated By: DASH PALMA DO 39 Transcribed By: JOANNE on 10/17/192339 COPY TO: DANIEL WICK MD [Q] OBSTETRIC PANEL W/FOURTH GENERATION [id number] 14:52:00* Test Item Value Reference Range Interpretation Comments WHITE BLOOD CELL COUNT (test code = WHITE BLOOD CELL COUNT) 9.4 {Thousand/u} 3.8-10.8 N RED BLOOD CELL COUNT (test code = RED BLOOD CELL COUNT) 5.05 {Million/uL} 3.80-5.10 N HEMOGLOBIN; Normal (test code = 98909-5) 13.6 g/dl 11.7-15.5 N HEMATOCRIT; Normal (test code = 4544-3) 42.3 % 35.0-45.0 N MCV; Normal (test code = 787-2) 83.8 fL 80.0-100.0 N MCHC; Normal (test code = 22781-9) 32.2 g/dl 32.0-36.0 N RDW; Normal (test code = 788-0) 12.2 % 11.0-15.0 N PLATELET COUNT; Normal (test code = 777-3) 326 {Thousand/u} 140-400 N MPV; Normal (test code = 83506-6) 9.6 fL 7.5-12.5 N ABSOLUTE NEUTROPHILS (test code = ABSOLUTE NEUTROPHILS) 7182 {cells/uL} 5927-7405 N ABSOLUTE LYMPHOCYTES (test code = ABSOLUTE [...] % N MONOCYTES; Normal (test code = 34804-8) 6.3 % N EOSINOPHILS; Normal (test code = 78071-3) 0.6 % N BASOPHILS; Normal (test code = 80499-2) 0.2 % N ANTIBODY SCREEN, RBC W/REFL [...] 883-9) A RH TYPE (test code = 89039-2) RH(D) POSITIVE For additional information, please refer to http://education.Chloe [employer] Isabel/faq/YFB357 (This link is being provided for informational/educational purposes only.) HEPATITIS B SURFACE ANTIGEN; Normal (test code = 5195-3) NON -REACTIVE NON-REACTIVE N RUBELLA ANTIBODY (IGG); Normal (test code = 70032-3) 10.30 {index} N Index Interpretation ----- <0.90 [...] AG/AB, 4TH GEN; Normal (test code = 92516-7) NON-REACTIVE NON-R EACTIVE N HIV-1 antigen and [...] purpose. For additional information please refer t [employer] Integrityttp://education.[employer]/faq/BUD888(This link is being provided for informational/educational purposes only.) The performance of this assay has not been clinicallyvalidated in patients less than 2 years old. [facility][Q] HEMOGLOBINOPATHY [id number] 14:52:00 * Test Item Value Reference Range Interpretation Comments RED BLOOD CELL COUNT (test code = RED BLOOD CELL COUNT) 4.70 {Million/uL} 3.80-5.10 N HEMOGLOBIN; Normal (test code = 33866-8) 13.5 g/dl 11.7-15.5 N HEMATOCRIT; Normal (test code = 4544-3) 39.5 % 35.0-45.0 N MCV; Normal (test code = 787-2) 84.0 fL 80.0-100.0 N MCH; Normal (test code = 29934-7) 28.7 pg 27.0-33.0 N RDW; Normal (test code = 788-0) 12.2 % 11.0-15.0 N HEMOGLOBIN A (test code = HEMOGLOBIN A) 97.9 % >96.0 N HEMOGLOBIN F (test code = HEMOGLOBIN F) <1.0 <2.0 N HEMOGLOBIN A2 (QUANT); Normal (test code = 10180-1) 2.1 % 1. 8-3.5 N INTERPRETATION (test code = INTERPRETATION) See Comment Normal phenotype. [facility][] URINALYSIS, [id number] 14:52:00* Test Item Value Reference Range Interpretation Comments COLOR; Normal (test code = 5778-6) DARK YELLOW YELLOW N APPEARANCE (test code = APPEARANCE) CLEAR CLEAR N SPECIFIC GRAVITY; Normal (test code = 2965-2) 1.026 1.001-1. 035 N PH; Normal (test code = 2756-5) 8.0 5.0-8.0 N GLUCOSE; Normal (test code = 1547-9) NEGATIVE NEGATIVE N BILIRUBIN; Normal (test code = 24607-9) NEGATIVE NEGATIVE N KETONES; Normal (test code = 16306-5) NEGATIVE NEGATIVE N OCCULT BLOOD; Normal (test code = 75274-8) NEGATIVE NEGATIVE N PROTEIN; Normal (test code = 45975-7) NEGATIVE NEGATIVE N NITRITE; Normal (test code = 85237-3) NEGATIVE NEGATIVE N LEUKOCYTE ESTERASE (test code = LEUKOCYTE ESTERASE) NEGATIVE NE GATIVE N WBC; Normal (test code = 6690-2) 0-5 < OR = 5 N RBC; Normal (test code = 789-8) 0-2 < OR = 2 N SQUAMOUS EPITHELIAL CELLS (test code = 35813-6) 0-5 < OR = 5 BACTERIA; Abnormal (test code = 630-4) FEW NONE SEEN A HYALINE CAST; Normal (test code = 24272-9) NONE SEEN NONE SEEN N [facility][] CULTURE, URINE, [id number] 14:52:00* Test Item Value Reference Range Interpretation Comments CULTURE (test code = CULTURE) See Comment A CULTURE, URINE, ROUTINE Micro Number: [id number] Test Status: Final Specimen Source: URINE Specimen [...] cefdinir, cefpodoxime, cefprozil, cefuroxime, cephalexin and loracarbef. [facility][Q] SMA CARRIER [id number] 14:52:00* Test Item Value Reference Range Interpretation Comments TECHNICAL RESULTS (test code = TECHNICAL RESULTS) NEGATIVE NEGATIVE; AT LEAST TWO COPIES OF THE SMN1 GENE DETECTED SMN1 (test code = SMN1) 2 COPIES SMN2 (test code = SMN2) 1 COPY INTERPRETATION (test code = INTERPRETATION) SEE NOTE This analysis identified at least two (2) copies of the UYW3ckhq. This result does not rule out carrier [...] in 117 1 in 1061 1 in 94946 SUPPLEMENTAL INFORMATIONSpinal muscular atrophy (SMA) is a family of disorders thatare characterized by progressive muscle weakness due to lossof anterior horn cells. A deletion of exon 7 in the CCR3cccj causes 95% of SMA. New mutations account forapproximately 2% of SMA. SMN2 genes are able to produce aprotein identical to that of the SMN1 gene, but at a reduced(10-20%) capacity. As a result the number of copies of EJD1osj been shown to influence the severity of the disease.This assay detects the copy number of the two common genes(SMN1 and SMN2) recommended by the [place] [employer]etics (ACMG) for population-based SMA carrierscreening. Health care providers, please contact your local [place] genetic counselor or call [employer] at [employer] work ([phone]) for assistance withthe interpretation of these results. [...] its analytical performancecharacteristics have been determined by [facility]. It has not beencleared or approved by FDA. This assay has been validatedpursuant to the CLIA regulations and is used for clinicalpurposes. [facility][Q] [id number] DEHYDROGENASE, QUANT. 2019-09-27 14:52:00* Test Item Value Reference Range Interpretation Comments LPYTWAX-7-HLUXPLGAP DEHYDROGENASE (test code = YUSTNBR-6-GECZKYDPD DEHYDROGENASE) 20.2 {U/g Hgb} 7.0-20.5 [facility][QL] CYSTIC FIBROSIS [id number] 14:52:00* Test Item Value Reference Range Interpretation [...] Before After Negative Rate Test Result Ashkenazi Restoration 94% 1 in 24 1 in 400Non- 88% 1 in 25 1 in 208CaucasianHispanic-Bel[place]ian 72% 1 in 46 1 in 164African-[place]ian 65% 1 in 65 1 in 186Asian-[place]ian 49% 1 in 94 1 in 184Other insufficient data available Health care providers, please contact your local [place] genetic counselor or call [employer] at [employer] ([phone]) for assistance withinterpretation of these results. MUTATIONS/POLYMORPHISMS (test code = MUTATIONS/POLYMORPHISMS) SEE N OTE MUTATIONS ANALYZED: G85E (c.254G>A) S549N (c.1646G>A)394delTT (c.262delTT) G551D (c.1652G>A)R117H (c.350G>A) R553X (c.1657C>T)621+1 G>T (c.489+1G>T) R560T (c.1679G>C)711+1 G>T (c.579+1G>T) 1898+1 G>A (c.1766+1G>A)1078delT (c.948delT) 2183AA>G (c.2051delAAinsG)R334W (c.1000C>T) 2184delA (c.2052delA)R347H (c.1040G>A) 2789+5 G>A (c.2657+5G>A)R347P (c.1040G>C) 3120+1 G>A (c.2988+1G>A)A455E (c.1364C>A) A1811M (c.3484C>T)I611dpp (c.1519delATC) 3659delC (c.3528delC)H981gwx (c.1521delCTT) 3849+10kb C>T (c.4691+59783O>T)V520F (c.1558G>T) 3876delA (c.3744delA)1717-1 G>A (c.1585-1G>A) 3905insT (c.3773insT)G542X (c.1624G>T) V7931Z (c.3846G>A)S549R (c.1645A>C or c.1647T>G) I9661R (c.3909C>G) This assay detects thirty-two mutations, including thetwenty-three core mutations recommended by the AmericanCollege of Medical Genetics (ACMG) and the [place] Congressof Obstetricians and Gynecologists (ACOG) forpopulation- based [...] submitted clinical informationreviewed by Mariano Patel, Ph.D., [facility]. For additional information, please refer tohttp://[email or web address] DEV.com/faq/cfscreen(This link is being provided for informational/educationalpurposes only.) This test was developed and its analytical performancecharacteristics have been determined by [facility]. It has not beencleared or approved by FDA. This assay has been validatedpursuant to the CLIA regulations and is used for clinicalpurposes. [facility]. [facility] - PAP w/reflex HPV if ASC-US or above 2019-09-27 00:00:00* Test Item Value Reference Range Interpretation Comments Case (test code = Case) Click ImageLink button for report. A [facility][QL] HCG, TOTAL, [id number] 14:23:00* Test Item Value Reference Range Interpretation Comments HCG, TOTAL, QN (test code = HCG, TOTAL, QN) 77700 {miU/ml} Reference RangeNon or premenopausal <5Postmenopausal <10 Values from different assay methods may vary.The use of this assay to monitor or to diagnose patients with cancer or any condition unrelatedto has not been cleared or approved bythe FDA or the budget specialist of the assay. [facility][QL] ANTIBODY SCREEN, RBC W/REFL ID, TITER [...] the medical management of an alloimmunized . [facility][QL] ABO GROUP AND RH [id number] 14:23:00* Test Item Value Reference Range Interpretation Comments ABO GROUP (test code = 883-9) A RH TYPE (test code = 59926-9) RH(D) POSITIVE For additional information, please refer to http://education.[place].[place]/faq/YDJ350 (This link is being provided for informational/educational purposes only.) [facility][O] Urine Test (in office)2019-09-10 13:40:00* Test Item Value Reference Range Interpretation Comments Test, Urine (test code = 2106-3) POSITIVE Control Line Present? (test code = Control Line Present?) Yes N [facility]iciansEC 12 [id number] 22:28:21* Test Item Value Reference Range Interpretation Comments Ventricular rate (test code = 253) 83 Atrial rate (test code = 255) 83 NM interval (test code = 266) 148 QRSD interval (test code = 260) 64 QT interval (test code = 264) 334 QTC interval (test code = 265) 392 P axis 1 (test code = 267) 52 QRS axis 1 (test code = 268) 45 T wave axis (test code = 270) 23 EKG impression (test code = 273) Sinus rhythm with antonio paredes sinus arrhythmia- Otherwise normal ECG-In automated comparison with ECG of 26-JAN-2018 22:22,-No significant change was found-Electronically Signed By Frederic Bravo MD ([id number]) on 10:28:18 PM Onel MethodistComprehensive metabolic [id number] 22:50:52* Test Item Value Reference Range Interpretation Comments Sodium (test code = 2951-2) 136 135- 148 mEq/L Potassium (test code = 2823-3) 3.8 3.5- 5.0 mEq/L Chloride (test code = 5-0) 101 98- 112 mEq/L CO2 (test code = 2027-9) 27 24- 31 mEq/L Anion gap (test code = 61110-4) 8@ANIO 7- 15 mEq/L BUN (test code = 3094-0) 18 mg/dL 6-20 Creatinine (test code = 2160-0) 0.85 mg/dL 0.5-0.9 Glucose (test code = 2345-7) 95 mg/dL 65-99 Calcium (test code = 89439-8) 9.2 mg/dL 8.3-10.2 Protein (test code = 2885-2) 7.8 g/dL 6.3-8.3 Albumin (test code = 1751-7) 4.2 g/dL 3.5-5 A/G ratio (test code = 1759-0) 1.2 0.7-3.8 Alkaline phosphatase (test code = 6768-6) 76 U/L 35-104 AST (test code = 1920-8) 18 U/L 10-35 ALT (test code = 1742-6) 12 U/L 5-50 Total bilirubin (test code = 1974-2) 0.2 mg/dL 0-1.2 Sykes MethodistEstimated [id number] 22:50:52* Test Item Value Reference Range Interpretation Comments Estimated GFR (test code = 5488) >=90 mL/min/1.73 m2 Catergory Units InterpretationG1 >=90 Normal or highG2 60-89 Mildly ziruzsxweO7r 45-59 Mildly to moderately jaefeiaebH0h 30-44 Moderately to severely decreasedG4 15-29 Severely decreasedG5 <15 Kidney failureThe eGFR was calculated using the Chronic Kidney Disease Epidemiology Collaboration (CKD-EPI) equation. Interpretation is based on recommendations of the National Kidney Foundation-Kidney Disease Outcomes Quality Initiative (NKF-KDOQI) published in 2014. Onel UrenaistB natriuretic [id number] 22:32:33* Test Item Value Reference Range Interpretation Comments BNP (test code = 42476-3) 26 pg/mL 0-100 Onel MethodistTroponin, A-[id number] 22:32:33* Test Item Value Reference Range Interpretation [...] OR decreased by less than 0.020 ng/mL Sykes MethodisthCG qualitative, urine [id number] 22:27:03* Test Item Value Reference Range Interpretation Comments hCG qualitative, urine (test code = 2106-3) Negative Sensitivity of HCG test: 25 mIU/mLNegative test results in patients suspected to be should be retested with a sample obtained 48-72 hours later, or by performing a quantitative assay. Steptoe XzyfmmvmtZcwfurdqrt5972-12-97 22:22:49* Test Item Value Reference Range Interpretation Comments Glucose, UA (test code = 79035-8) Negative Negative Bilirubin, UA (test code = 5770-3) Negative Negative Ketones, UA (test code = 2514-8) Negative Negative Specific gravity, UA (test code = 5811-5) 1.015 1.001-1.035 Blood, UA (test code = 5794-3) Negative Negative pH, UA (test code = 5803-2) 7.0 5.0-8.5 Protein, UA (test code = 91161-5) Negative Negative Urobilinogen, UA (test code = 06829-3) <2.0 <2.0 Nitrite, UA (test code = 5802-4) Negative Negative Leukocyte esterase, UA (test code = 5799-2) Trace Negative A Color, UA (test code = 5778-6) Yellow Appearance, UA (test code = 5767-9) Clear Lab Interpretation (test code = 56848-2) Abnormal Steptoe MethodistCBC with platelet and yzcxqwnvsoyh7810-24-10 22:22:44* Test Item Value Reference Range Interpretation Comments WBC (test code = 30481-6) 10.69 4.50- 11.00 k/uL RBC (test code = 65668-7) 4.68 m/uL 4.2-5.5 HGB (test code = 718-7) 12.8 g/dL 12-16 HCT (test code = 4544-3) 39.9 % 37-47 MCV (test code = 787-2) 85.3 fL 82-100 MCH (test code = 785-6) 27.4 pg 27-34 MCHC (test code = 786-4) 32.1 g/dL 31-37 RDW - SD (test code = 97245-0) 42.4 fL 37-55 MPV (test code = 03446-4) 9.1 fL 8.8-13.2 Platelet count (test code = 55367-2) 304 150- 400 k/uL Neutrophils (test code = 76070-2) 57.8 % 39-69 Lymphocytes (test code = 29569-0) 32.3 % 25-45 Monocytes (test code = 53131-2) 9.0 % 0-10 Eosinophils (test code = 49823-8) 0.8 % 0-5 Basophils (test code = 39285-2) 0.1 % 0-1 Sykes MethodistXR Chest 2 [id number] 22:00:27Hm Interface, Radiology Results - 07/20/2019 10:03 PM CDTEXAMINATION: XR CHEST 2 VWCLINICAL HISTORY: 29 years Female CPCOMPARISON: 07/19/2018IMPRESSION:Lines/Tubes: None.Lungs/Pleura: The lungs are clear. No pleural effusion or p neumothorax.Heart/Mediastinum: The cardiomediastinal silhouette is normal.Bones: No acute osseous abnormality.[facility]-5GB8996LEHTkwglbu MethodistRAD, CHEST, 1 VIEW, NON [id number] 13:17:00Reason for exam:->COUGHShould this be performed at the bedside?->YesIs the patient ?->NoFINAL REPORT INDICATION: COUGH COMPARISON: June 29, 2018 TECHNIQUE: Single frontal view of the chest. FINDINGS: Lungs and pleura: Clear lungs. No effusion.Heart and mediastinum: Normal heart size. Unremarkable mediastinal contours.Osseous structures: No acute abnormality.Other: None. IMPRESSION: No acute intrathoracic abnormality. Signed: JR Singh Robert MDReport Verified Date/Time: 09/18/2018 13:17:38 Reading Location: [address] Consult Reading Room ALYSIS W/ REFLEX URINE [id number] 00:18:00* Test Item Value Reference Range Interpretation [...] /HPF SOURCE(BEAKER) (test code = 2795) SCREEN, [id number] 00:17:00* Test Item Value Reference Range Interpretation Comments TEST URINE (BEAKER) (test code = 583) Negative B-TYPE NATRIURETIC FACTOR (BNP)2018-06-29 23:47:00* Test Item Value Reference Range Interpretation Comments B-TYPE NATRIURETIC PEPTIDE (BEAKER) (test code = 700) 12 pg/mL 0-100 TROPONIN [id number] 23:43:00* Test Item Value Reference Range Interpretation [...] neurological disease, and per sistent tachyarrhythmia.COMPREHENSIVE METABOLIC [id number] 23:42:00* Test Item Value Reference Range Interpretation [...] DIALYSIS PATIENTS. CBC W/PLT COUNT & AUTO [id number] 23:25:00* Test Item Value Reference Range Interpretation [...] 2801) 0 % 0-0 RAPID INFLUENZA A&B [id number] 21:24:00* Test Item Value Reference Range Interpretation Comments RAPID INFLUENZA A AG (BEAKER) (test code = 1622) Negative Negative, Inconclusive RAPID INFLUENZA B AG (BEAKER) (test code = 1623) Negative Negative, Inconclusive RAD, CHEST, 2 [id number] 21:22:00Reason for exam:->GENERALIZED WEAKNESS, NOT ASSOCIATED WITH [...] MDReport Verified Date/Time: 06/29/2018 21:22:13 Reading Location: [facility] C013V Neuro Reading Room 2 VIEW - [id number] 23:31:00 [place] [address] Patient Name: WEI TRINIDAD MR #: [id number] : 1990 Age/Sex: 28/F Req #: [id number] Adm Physician: Ordered by: AMANDA LACY MD Report #: [id number] Location: [facility] Room/Bed: Procedure: 1129- 0012 HOPD/CXR 2 VIEW - HOPD Exam Date: 02/15/18 Exam Time: 0 REPORT STATUS: Signed Exam: PA and lateral [...] 02/15/182331 COPY TO: AMANDA LACY MD SCREEN, [id number] 23:41:00* Test Item Value Reference Range Interpretation Comments TEST URINE (BEAKER) (test code = 583) Negative CBC W/PLT COUNT & AUTO [id number] 01:50:00* Test Item Value Reference Range Interpretation [...] K/ L 0. 00-0.20 CT, BRAIN, WITHOUT [id number] 18:50:00Reason for exam:->headache, eye painWhat is the [...] [place] Verified Date/Time: 08/09/2017 18:50:12 [facility] Reading Room C METABOLIC [id number] 23:51:00* Test Item Value Reference Range Interpretation [...] = 358) 0.87 mg/dL 0.50-1.20 GLUCOSE RANDOM (BEAKER) (test code = 652) 83 mg/dL 70-110 CALCIUM (BEAKER) (test code = 697) 10.0 mg/dL 8.5-10.5 EGFR (LISA) (test code = 1092) 95 mL/min/1.73 sq m ESTIMATED GFR IS NOT ACCURATE CREATININE CLEARANCE IN PREDICTING GLOMERULAR FILTRATION RATE. ESTIMATED GFR IS NOT APPLICABLE FOR DIALYSIS PATIENTS. [id number] 23:50:00* Test Item Value Reference Range Interpretation Comments MAGNESIUM (LISA) (test code = 627) 2.1 mg/dL 1.5-3.0 RAD, CHEST, 2 [id number] 01:23:00Reason for exam:->CHILLSReason for exam:-> SHORTNESS OF [...] [place] Verified Date/Time: 02/21/2017 01:23:55 Reading Location: [address] Reading Room UE [id number] 12:12:00Surgical Pathology Report Case: [id number] Authorizing Provider: Ayanna Farfan Ordering Provider: Ayanna Farfan MD [place], MD Ordering Location: [facility] Collected: 04/29/2016 1300 SERVICES Pathologist: Karime [...] (SEE COMMENT) Signing Pathologist Direct Phone Line: [phone] & B. The tumor involves mesoappendix in [...]
== END 2019-10-29 | disposition home or self-care (01) ==
LOC: FSED 23:36
DX: O20.0 Threatened abortion (principal)
CPT/HCPCS: 85025; 99283

== ENCOUNTER 2020-04-29 18:52 | Observation (INO) | payer OTHER ==
[~2020-04-29] VITALS: Ht 157.5 cm; Wt 95.9 kg
[2020-04-29] MEDS ORDERED: SODIUM CHLORIDE 0.9% 50ML 50 ML ONE (21:46)
[2020-04-29] MEDS ORDERED: IOPAMIDOL 370 MG/ML 200 ML INFUS..BTL INJ ONE (21:47)
[2020-04-30] MEDS ORDERED: MORPHINE SULFATE INJ 2 MG/ML SYR IV PRN (00:45)
[2020-04-30] MEDS ORDERED: ONDANSETRON HCL INJ 2MG/ML 2ML 2 MG/ML VIAL IV PRN (00:45)
[2020-04-30] MEDS ORDERED: SODIUM CHLORIDE FLUSH 10 ML SYR INJ PRN (00:45)
[2020-04-30 03:00] VITALS: BP 116/74
[2020-04-30 03:30] VITALS: BP 126/73
[2020-04-30 07:54] VITALS: BP 106/79
[2020-04-30 07:59] VITALS: BP 106/79
[2020-04-30] MEDS ORDERED: PRENATAL CAPLE1 EACH PO (08:46)
[2020-04-30 08:53] LABS: BASOPHILS % 0.3 % (0.0-1.0); EOSINOPHILS # (AUTO) 0.1 (0.0-0.4); EOSINOPHILS % 0.9 % (0.0-6.0); HEMATOCRIT 42.5 % (34.2-44.1); HEMOGLOBIN 13.7 g/dL (12.0-16.0); LYMPHOCYTES # (AUTO) 2.3 (1.0-3.2); MEAN CORPUSCULAR HEMOGLOBIN 26.3 pg (28-32); MEAN CORPUSCULAR HGB CONC 32.2 g/dL (31-35); MEAN CORPUSCULAR VOLUME 81.7 fL (81-99); MONOCYTES # (AUTO) 0.6 (0.2-0.8); MONOCYTES % 6.3 % (4.4-11.3); NEUTROPHILS # (AUTO) 6.9 (2.1-6.9); NEUTROPHILS % 69.2 % (38.7-80.0); PLATELET COUNT 300 x10e3/uL (140-360); RED CELL DISTRIBUTION WIDTH 14.6 % (11.7-14.4)
[2020-04-30] MEDS ORDERED: ENOXAPARIN SODIUM INJ 100 MG/ML SYR SC SCH ×2 (09:00)
[2020-04-30 09:17] LABS: ANION GAP 14.1 mmol/L (8-16); BLOOD UREA NITROGEN 12 mg/dL (7-26); BUN/CREATININE RATIO 16 (6-25); CALCIUM 8.7 mg/dL (8.4-10.2); CARBON DIOXIDE 23 mmol/L (22-29); CHLORIDE 105 mmol/L (98-107); CREATININE, SERUM 0.75 mg/dL (0.57-1.11); EST GLOMERULAR FILTRATION RATE > 60 ML/MIN (60-); GLUCOSE 98 mg/dL (74-118); POTASSIUM 4.1 mmol/L (3.5-5.1); SODIUM 138 mmol/L (136-145)
[2020-04-30] MEDS ORDERED: LOVENOX120 MG/0.8 SC (11:12)
== END 2020-04-30 12:24 | disposition home or self-care (01) ==
LOC: FSED 19:20 → ERHOLD 04-30 00:53 → MED/SURG2 04-30 03:07
PROVIDERS: ADMIT Internal Medicine; ATTEND Internal Medicine
DX: O88.23 Thromboembolism in the puerperium (principal); Z83.3 Family history of diabetes mellitus; Z84.89 Family history of other specified conditions; Z88.2 Allergy status to sulfonamides; Z88.8 Allergy status to other drugs, medicaments and biological substances; Z20.822 Contact with and (suspected) exposure to COVID-19
CPT/HCPCS: 36415; 71260; 80048; 80053; 81025; 82553; 84484; 85025; 85379; 93005; 99284; G0378; J1650; J2270; Q9967; U0002

== ENCOUNTER 2021-05-11 16:36 | Emergency (ER) | payer OTHER ==
[~2021-05-11] VITALS: Ht 157.5 cm; Wt 95.7 kg
[~2021-05-11 16:36] MED LIST changes: +LOVENOX120 MG/0.8 SC; +PRENATAL CAPLE1 EACH PO
[2021-05-11 18:27] VITALS: BP 144/76
== END 2021-05-11 18:28 | disposition home or self-care (01) ==
LOC: ER 16:45
DX: R07.89 Other chest pain (principal); Z79.01 Long term (current) use of anticoagulants
CPT/HCPCS: 36415; 71046; 81025; 85379; 93005; 99284